=== PATIENT | female | born 1980 | race Caucasian/White ===

== ENCOUNTER → 2021-07-26 15:26 | Outpatient (BNVA) | payer BC, SELFPAY | PROVIDERS: PCP Physician Assistant; Visit Provider Psychiatry & Neurology Neurology | DX: G47.9 Sleep disorder, unspecified (principal); R20.2 Paresthesia of skin; R51.9 Headache, unspecified; M54.2 Cervicalgia; G89.29 Other chronic pain; M79.601 Pain in right arm; M79.602 Pain in left arm | CPT/HCPCS: 99212 ==

== ENCOUNTER 2021-10-16 08:47 | Outpatient (REF) | payer BC, SELFPAY ==
--- NOTE | 2021-10-16 08:53 | EMG_ITS ---
HISTORY OF PRESENT ILLNESS: This is a 41-year-old woman with a 1-year history of left more than right upper extremity numbness and tingling. She has a history of herniated cervical disk and back pain, takes gabapentin. PHYSICAL EXAMINATION: On examination, she is alert, oriented with normal intellectual functions. Cranial nerves II through XII are normal. Muscle tone and strength are normal in all 4 extremities. No Tinel or Phalen sign. IMPRESSION: Carpal tunnel syndrome. Nerve conduction EMG study: Early carpal tunnel syndrome on the left, otherwise normal study. Normal EMG of the left C5-T1 innervated muscles. MD BRANDY Marcial/HAKEEM / [id number]
== END 2021-10-16 08:48 | disposition home or self-care (01) ==
LOC: HO.NEURO 08:47
PROVIDERS: PCP Physician Assistant; Visit Provider Psychiatry & Neurology Neurology
DX: M79.601 Pain in right arm (principal); M79.602 Pain in left arm; R20.2 Paresthesia of skin
CPT/HCPCS: 95885; 95913

== ENCOUNTER 2024-04-14 13:21 | Outpatient (AMB) | payer BC, SELFPAY ==
--- OUTSIDE RECORDS SUMMARY | 2024-04-14 13:24 | XMS_ITS | Data Portability ---
Author Organization [place] - [facility],, MARISA RAMIREZ MD Address [address] [address] Care Team Providers Care Board Stacker Name Role Phone BRANDI PINEDA OTHER Assessment No assessment recorded. Plan of Treatment Reminders Order Date Submit Date Provider Last Modified By Organization Details Last Modified Time Details Appointments None recorded. Lab pap test, thinprep, cervical 2023 024 [email or web address] [facility], [address] [place], [address], 4 07:48:44 fecal occult blood, stool 2023 024 [email or web address] 1 In-Office Order, Internal Use Only DO Not Attach Compendium DO Not Attach Compendium, Do Not Delete/merge, [id number] 4 11:32:16 cytology report, thin prep, smear or scraping, cervical or vaginal 2023 024 RAUL [facility], [address] [place], [address], 4 08:09:26 wet mount, vaginal 2023 024 [email or web address] 1 In-Office Order, Internal Use Only DO Not Attach Compendium DO Not Attach Compendium, Do Not Delete/merge, [id number] 4 11:08:48 wet mount, vaginal 2023 024 [email or web address] 1 In-Office Order, Internal Use Only DO Not Attach Compendium DO Not Attach Compendium, Do Not Delete/merge, [id number] 4 12:43:27 test, urine 2023 024 [email or web address] 1 In-Office Order, Internal Use Only DO Not Attach Compendium DO Not Attach Compendium, Do Not Delete/merge, [id number] 4 11:54:13 wet mount, vaginal 2023 024 [email or web address] 1 In-Office Order, Internal Use Only DO Not Attach Compendium DO Not Attach Compendium, Do Not Delete/merge, [id number] 4 09:38:23 pap, LB + reflex to HR HPV if ASC-U 2023 024 [facility], [address], [place], [address], 4 07:51:42 Referral None recorded. Procedures None recorded. Surgeries None recorded. Imaging MAMMO, screening, digital, bilateral - Breast Aspiration and/or Biopsy if needed 2023 024 [facility], [address], [place] [address], [place], [address], 4 17:22:25 Medication Orders Incassia 0.35 mg tablet 2023 024 [facility] #[id number], [address] [place] [address], [address], 4 11:34:04 clindamyci n 2 % vaginal cream 2023 024 [facility]1972, [address] [place], [address], 4 11:08:48 fluconazol e 150 mg tablet 2023 024 [facility][id number], [address] [place] [address], [address], 4 11:08:48 triamcinol one acetonide 0.1 % topical ointment 2023 024 [facility]1972, [address] [place], [address], 4 11:56:39 terconazol e 0.4 % vaginal cream 2023 024 [facility]1972, [address] [place], [address], 4 11:56:37 Gynazole-1 2 % vaginal cream 2023 024 [facility]1972, [address] [place], [address], 09:38:25 Patient TargetsNo targets recorded. Patient Instructions Encounter Date Encounter Id Patient Instructions Last Modified By Organization Details Last Modified Time 06/18/2023 [id number] learning about healthy weight Not available 06/18/2023 11:32:13 She is here for annual, doing well on the progestin pill, as she is a smoker. She does have occasional intermenstrual spotting. EMB 11/23 showed superficial strips of inactive endometrium. She notes that she has had deep dyspareunia since her first sexual encounter at age 14, always same partner. Note from 11/2022: She is here for emb because she has been bleeding every day for10 weeks, and pelvic sonogram was unremarkable. She takes the progestin pill as she is a smoker. In 09/23 the TSH, prolactin and HCG were normal. _ She is offered laparoscopy to look into the dyspareunia and also to do BTL as she wants permanent sterilization, she declines for now. Declines IUD also. Advised to consider vasectomy so that she can stop the pil, she will speak wiht her about this. She appears to be doing well. Monthly self breast exam was taught, and stressed, and is advised to call if she discovers any new mass in the breast. Not available 06/18/2023 11:33:48 09/16/2023 [id number] abnormal Pap sme ar education Not available 09/16/2023 11:08:46 colposcopy: befo re your procedure Not available 09/16/2023 11:08:45 bacterial vaginosis: care instructions Not available 09/16/2023 11:08:45 vaginal yeast infection: care instructions Not available 09/16/2023 11:08:46 She is here for repeat pap after ASCUS however she also has concerns about missing her OCP for 3 days in a row. She had called here yesterday and we had a few messages with her yesterday, we called in an rx for her OCP at her request though it was too early for her insurance to fill, and she had been advised to take Plan B but she decided not to do so. We spoke with her at 10:55 am, 2:38 pm and again at 3:11 pm. She expresses frustration because we did not answer her in a timely fashion, or resolve her concerns yesterday. It is 11 am and she has not picked up her pills yet today, she will do so after this visit. She has now missed Thursday, Thursday, Thursday and has not yet taken Thursday pill. She had unprotected intercourse on Thursday and on Thursday. Also she complains of a vaginal discharge with pruritus and she would like wet radha done today. Pap is taken await results. We discussed that she should know that if she already became then taking extra pills would not prevent implantation and I recommend she take Plan B but she declines. She will take 2 progestin pills today, tomorrow and the next day then go back to daily pills but use condoms for 4 weeks. She as both yeast and bv on wet radha. She is symptomatic for yeast, rx diflucan. She is not symptomatic for bv and is advised she does not need to treat it but she has some brown discharge and would like to treat it to see if the brown discharge resolves with treatment. Rx cleocin 7 vaginal cream. All questions answered. Not available 09/16/2023 11:20:14 10/08/2023 [id number] vaginal yeast infection: care instructions Not available 10/08/2023 11:54:10 secondary amenorrhea: care instructions Not available 10/08/2023 11:54:10 She is here for a 2 month histroy of vaginal and vulvar pruritus She took diflucan three weeks ago, and again 2 weeks ago, but has not had an improvement in her itching. She did note an improvement with the cleocin 7 vaginal cream on her bv vaginal discharge, now resolved. Note from 09/16/23: She is here for repeat pap after ASCUS however she also has concerns about missing her OCP for 3 days in a row. She had called here yesterday and we had a few messages with her yesterday, we called in an rx for her OCP at her request though it was too early for her insurance to fill, and she had been advised to take Plan B but she decided not to do so. We spoke with her at 10:55 am, 2:38 pm and again at 3:11 pm. She expresses frustration because we did not answer her in a timely fashion, or resolve her concerns yesterday. It is 11 am and she has not picked up her pills yet today, she will do so after this visit. She has now missed Thursday, Thursday, Thursday and has not yet taken Thursday pill. She had unprotected intercourse on Thursday and on Thursday. Also she complains of a vaginal discharge with pruritus and she would like wet radha done today. Pap is taken await results. We discussed that she should know that if she already became then taking extra pills would not prevent implantation and I recommend she take Plan B but she declines. She will take 2 progestin pills today, tomorrow and the next day then go back to daily pills but use condoms for 4 weeks. She as both yeast and bv on wet radha. She is symptomatic for yeast, rx diflucan. She is not symptomatic for bv and is advised she does not need to treat it but she has some brown discharge and would like to treat it to see if the brown discharge resolves with treatment. Rx cleocin 7 vaginal cream. __ She requests test due to amenorrhea, test is negative. She often has amenorrhea due to her OCP she notes. We discussed that she still has yeast and failed diflucan ,will rx terazol 7. Call if symptoms persist. Also rx aristocort for topical relief of itching as she is scratching her skin off. Not available 10/08/2023 12:47:17 10/23/2023 [id number] vaginal yeast infection: care instructions Not available 10/23/2023 09:38:23 She is here because she used the diflucan and it did not help her vaginal pruritus and burning. _ Note from 10/08/23: She is here for a 2 month histroy of vaginal and vulvar pruritus She took diflucan three weeks ago, and again 2 weeks ago, but has not had an improvement in her itching. She did note an improvement with the cleocin 7 vaginal cream on her bv vaginal discharge, now resolved. She has a small amount of yeast on wet radha, will rx with Gynazole-1 at her request, she prefers this over terazol 7, she is aware it may be more expensive. Advised to go back to using the aristocort BID for a month as well. Call if this does not improve her symptoms. Also advised to use RepHresh for 2 to 3 weeks. Not available 10/23/2023 09:40:58 01/19/2024 [id number] abnormal Pap sandra t: care instructions Not available 01/19/2024 11:36:16 She is here for repeat pap after pap with ASCUS without HR HPV. Pap taken, if negative resume annual pap. If ASCUS then colpo. She understands. Not available 01/19/2024 11:37:00 Reason for Referral None Reported. 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 Shift in joelle sugge stive of bacte rial vagin osis. Satis facto ry for evalu ation . Endoc ervic al/tr ansfo rmati on zone prese nt. Proce dures /Adde nda: Human Papil jamila Virus , High- Risk (Any Dx) Statu s: Tanja d Out Inter preta tion: Negat katrina Metho dolog y: Holog ic Aptim a HPV mRNA assay (Nucl eic Acid Ampli ficat ion Test, NAAT) . Clini kemal Histo ry: Date of Last Menst rual Perio d: 06/15 Menst rual Histo ry: not avail able Contr acept katrina Histo ry: not avail able Ancil kady Testi ng: HPV (ASCU S) Case image d by the ThinP rep Imagi ng Syste m with enmanuel perry or felicia gallegos. Clini kemal Histo ry (othe r): Z01.4 19, ROUTI NE SCREE N LPS 2022 NEG Prima ry Patho logis t: Sarina luna M.D. Phone #: [phone], On-Ca Patho logis t: [id number] Not Available [facility] [address], [place], [address], 06/26/2023 16:23:45 06/18/19 24 06/18/2023 fecal occul t blood , stool Occult Blood negati ve Not Available In-Office Order Internal Use Only DO Not Attach Compendium DO Not Attach Compendium, Do Not Delete/merge, [id number] 06/18/2023 10:55:57 09/16/19 24 09/28/2023 IGP, RFX APTIM A HPV ASCU diagnosis: Commen t abnormal EPITH ELIAL CELL ABNOR MALIT Y. ATYPI KEMAL SQUAM OUS CELLS OF UNDET ERMIN ED SIGNI KATHLEEN CE (ASC- US). Not Available [address], [address], 10/07/2023 08:09:26 09/16/19 24 09/28/2023 IGP, RFX APTIM A HPV ASCU specimen adequacy: Iliana pierce Satis facto ry for evalu ation . Endoc ervic al and/o r squam ous metap lasti c cells (endo cervi kemal compo nent) are prese nt. Not Available [address], [address], 10/07/2023 08:09:26 09/16/19 24 09/28/2023 IGP, RFX APTIM A HPV ASCU clinician provided ICD10: Iliana pierce R87.6 10 Not Available [address], [address], 10/07/2023 08:09:26 09/16/19 24 09/28/2023 IGP, RFX APTIM A HPV ASCU performed by: Iliana najera, Cytot echotoniel logis t (ASCP ) Not Available [address], [address], 10/07/2023 08:09:26 09/16/19 24 09/28/2023 IGP, RFX APTIM A HPV ASCU electronical ly signed by: Iliana Hernandez MD, Patho logis t Not Available [address], [address], 10/07/2023 08:09:26 09/16/19 24 09/28/2023 IGP, RFX APTIM A HPV ASCU . . Not Available [address], [address], 10/07/2023 08:09:26 09/16/19 24 09/28/2023 IGP, RFX APTIM A HPV ASCU pathologist provided ICD10: Iliana pierce R87.6 10 Not Available [address], [address], 10/07/2023 08:09:26 09/16/19 24 09/28/2023 IGP, RFX APTIM A HPV ASCU note: Commen t The Pap smear is a scree catarina test desig topher to aid in the detec tion of melani ligna nt and malig nant condi tions of the uteri ne cervi x. It is not a diagn ostic proce dure and shoul d not be used as the sole means of detec ting cervi kemal cance r. Both false -posi tive and false -nega tive repor ts do occur . Not Available [address], [address], 10/07/2023 08:09:26 09/16/19 24 09/28/2023 IGP, RFX APTIM A HPV ASCU test methodology: Iliana t This liqui d based ThinP rep(R ) pap test was scree topher with the use of an image guide zelda enamorado. Not Available [address], [address], 10/07/2023 08:09:26 09/16/19 24 09/28/2023 IGP, RFX APTIM A HPV ASCU . Commen t See below for HPV testi ng resul ts. Not Available [address], [address], 10/07/2023 08:09:26 09/16/19 24 10/07/2023 IGP, RFX APTIM A HPV ASCU HPV aptima Negati ve negati ve This nucle ic acid ampli ficat ion test detec ts fourt een high- risk HPV types (16,1 8,31, 33,35 ,39,4 5,51, 52,56 ,58,5 9,66, 68) witho ut diffe renti ation . Not Available [address], [place], [address], 10/07/2023 08:09:26 09/16/19 24 09/16/2023 wet mount , vagin al Clue Cells positi ve Not Available In-Office Order Internal Use Only DO Not Attach Compendium DO Not Attach Compendium, Do Not Delete/merge, 09/16/2023 11:05:49 09/16/19 24 09/16/2023 wet mount , vagin al Trichomonas negati ve Not Available In-Office Order Internal Use Only DO Not Attach Compendium DO Not Attach Compendium, Do Not Delete/merge, 09/16/2023 11:05:49 09/16/19 24 09/16/2023 wet mount , vagin al Hyphae positi ve Not Available In-Office Order Internal Use Only DO Not Attach Compendium DO Not Attach Compendium, Do Not Delete/merge, 09/16/2023 11:05:49 09/16/19 24 09/16/2023 wet mount , vagin al atrophic epithelium negati ve Not Available In-Office Order Internal Use Only DO Not Attach Compendium DO Not Attach Compendium, Do Not Delete/merge, 09/16/2023 11:05:49 10/08/19 24 10/08/2023 wet mount , vagin al Clue Cells negati ve Not Available In-Office Order Internal Use Only DO Not Attach Compendium DO Not Attach Compendium, Do Not Delete/merge, 10/08/2023 11:52:50 10/08/19 24 10/08/2023 wet mount , vagin al Trichomonas negati ve Not Available In-Office Order Internal Use Only DO Not Attach Compendium DO Not Attach Compendium, Do Not Delete/merge, 10/08/2023 11:52:50 10/08/19 24 10/08/2023 wet mount , vagin al Hyphae positi ve Not Available In-Office Order Internal Use Only DO Not Attach Compendium DO Not Attach Compendium, Do Not Delete/merge, 10/08/2023 11:52:50 10/08/19 24 10/08/2023 wet mount , vagin al atrophic epithelium negati ve Not Available In-Office Order Internal Use Only DO Not Attach Compendium DO Not Attach Compendium, Do Not Delete/merge, 10/08/2023 11:52:50 10/08/19 24 10/08/2023 pregn perez test, urine HCG negati ve Not Available In-Office Order Internal Use Only DO Not Attach Compendium DO Not Attach Compendium, Do Not Delete/merge, 10/08/2023 11:32:47 10/23/19 24 10/23/2023 wet mount , vagin al Clue Cells negati ve Not Available In-Office Order Internal Use Only DO Not Attach Compendium DO Not Attach Compendium, Do Not Delete/merge, 10/23/2023 09:29:26 10/23/19 24 10/23/2023 wet mount , vagin al Trichomonas negati ve Not Available In-Office Order Internal Use Only DO Not Attach Compendium DO Not Attach Compendium, Do Not Delete/merge, 10/23/2023 09:29:26 10/23/19 24 10/23/2023 wet mount , vagin al Hyphae positi ve Not Available In-Office Order Internal Use Only DO Not Attach Compendium DO Not Attach Compendium, Do Not Delete/merge, 10/23/2023 09:29:26 10/23/19 24 10/23/2023 wet mount , vagin al atrophic epithelium negati ve Not Available In-Office Order Internal Use Only DO Not Attach Compendium DO Not Attach Compendium, Do Not Delete/merge, 10/23/2023 09:29:26 01/19/20 24 01/25/2024 IGP, RFX APTIM A HPV ASCU diagnosis: Commen t NEGAT KATRINA FOR INTRA EPITH ELIAL LESIO N OR KAREEM ANNE . THIS SPECI MEN WAS RESCR EENED PART OF OUR QUALI TY CONTR OL PROGR AM. Not Available [facility] ([facility]) [address] [facility], [place], [address], 01/25/2024 12:05:43 01/19/20 24 01/25/2024 IGP, RFX APTIM A HPV ASCU specimen adequacy: Iliana pierce Satis shantelle villafuerte for evalu ation . Endoc ervic al and/o r squam ous metap lasti c cells (endo cervi kemal compo nent) are prese nt. Not Available [facility] ([facility]) [address] [facility], [place], [address], 01/25/2024 12:05:43 01/19/20 24 01/25/2024 IGP, RFX APTIM A HPV ASCU clinician provided ICD10: Iliana pierce R87.6 10 Not Available [facility] ([facility]) [address] [place], [address], 01/25/2024 12:05:43 01/19/20 24 01/25/2024 IGP, RFX APTIM A HPV ASCU performed by: Iliana Goodman, Cytot echno logis t (ASCP ) Not Available [facility] ([facility]) [address] [place], [address], 01/25/2024 12:05:43 01/19/20 24 01/25/2024 IGP, RFX APTIM A HPV ASCU QC reviewed by: lIiana Damian , Cytot echno logis t (ASCP ) Not Available [facility] ([facility]) [address] [place], [address], 01/25/2024 12:05:43 01/19/20 24 01/25/2024 IGP, RFX APTIM A HPV ASCU . . Not Available [facility] ([facility]) [address] [place], [address], 01/25/2024 12:05:43 01/19/20 24 01/25/2024 IGP, RFX APTIM A HPV ASCU note: Iliana pierce The Pap smear is a scree catarina test desmary obando to aid in the detec tion of melani ligna nt and malig nant condi tions of the uteri ne cervi x. It is not a diagn ostic proce dure and shoul d not be used as the sole means of detec ting cervi kemal cance r. Both false -posi tive and false -nega tive repor ts do occur . Not Available [facility] ([facility]) [address] [facility], [place], [address], 01/25/2024 12:05:43 01/19/20 24 01/25/2024 IGP, RFX APTIM A HPV ASCU . Commen t The HPV DNA refle x crite chari were not met with this speci men resul t there fore, no HPV testi ng was perfo rmed. Not Available [facility] ([facility]) [address] [facility], [place], [address], 01/25/2024 12:05:43 07/13/19 24 07/13/2023 MAMMO , scree catarina, digit al, bilat eral No observ ation record ed. [email or web address] [facility] [address], [place], [address], 08/06/2023 07:54:18 07/30/19 24 07/30/2023 MAMMO , diagn ostic , digit al, unila teral No observ ation record ed. [facility] [place] [place] [address] [facility] [address] [address], [place], [address], 07/30/2023 13:09:02 Result Notes None recorded. Problems Name Problem SNOMED Code Status Onset Date Resolution Date Notes Provider Name and Address Organization Details Recorded Time Vulvitis 00845370 Active Marisa Ramirez MD [address] [facility] [address], [place], [address] , [place] - [facility], 4 15:12:56 Anxiety state 408444327 Active Not Available [facility] 3 03:01:04 Cyst of ovary 70662587 Active Not Available [facility] 3 03:01:04 Tobacco dependenc e syndrome 25610791 Active CAN NOT TAKE THE COMBINATIO N CONTROL PILL IF SHE SMOKES Marisa Ramirez MD [address], [place], [address] , [place] - [facility], 6 11:36:22 Past history of ectopic 878458830 Active 2009 She has a past history in 2009 of left sided ectopic treated with methotrexa te in 2009. She had a post procedure HSG which showed bilaterall y patent tubes after treatment. Marisa Ramirez MD [address], [place], [address] , [place] - [facility], 0 14:12:33 Carpal tunnel syndrome 08514352 Active 2021 Evy gibson [place] - [facility], 2 14:46:35 Specializ ed medical examinati on Active Marisa Ramirez MD [address], [place], [address] , [place] - [facility], 5 13:20:56 Problem Notes None recorded. Procedures Surgical History Date Name Laterality Status Provider Name and Address Organization Details Recorded Time 11/21/19 23 Endometrial Biopsy completed Marisa Ramirez MD [address] [facility],[address], [place], [address], [place] - [facility], 11/20/2022 14:26:11 07/12/19 23 Most Recent Mammogram completed Yadi Shelton in [facility], 06/08/2023 11:48:37 05/04/18 96 Other completed Yadi Shelton in [facility], 03/08/2012 13:37:41 05/04/18 84 Tonsillectomy completed Aarti Shelton in [facility], 03/20/2014 10:57:09 Imaging Results Imaging Date Name Status LastModified by Noy wright Details LastModified Time 07/13/2023 MAMMO, screening, digital, bilateral completed [email or web address] [facility] [address] [place], [address], 08/06/2023 07:54:18 07/30/2023 MAMMO, diagnostic, digital, unilateral completed [facility] [place] [place] [address] [place], [id number], 07/30/2023 13:09:02 Procedure Notes None recorded. Medical Equipment None Reported. Allergies No known drug allergies Medications Name Sig Start Date Stop Date Status Note LastModified by Organization Details LastModified Time methocarbam ol 500 mg tablet TAKE 1 TABLET BY MOUTH 3 TIMES A DAY 11/20 completed Not Available Not Available Not Available terconazole 0.4 % vaginal cream INSERT 1 APPLICATO RFUL VAGINALLY EVERY DAY FOR 7 DAYS active Not Available Not Available No t Available neomycin-po lymyxin-hyd rocort 3.5 mg/mL-10,00 0 unit/mL-1 % ear solution PLACE 5 DROPS INTO EAR THREE TIMES DAILY X7-10 DAYS 04/21 completed Not Available Not Available Not Available venlafaxine ER 37.5 mg capsule,ext ended release 24 hr TAKE 1 CAPSULE BY MOUTH DAILY. TAKE 1 TAB DAILY FOR A 1 WEEK, THEN INCREASE TO 2 TABLETS A DAY . 03/31 completed Not Available Not Available Not Available venlafaxine ER 75 mg capsule,ext ended release 24 hr TAKE 1 CAP BY MOUTH DAILY. START AFTER 1 WEEK OF THE 37.5MG DOSE 03/31 completed Not Available Not Available Not Available nicotine 14 mg/[address] daily transdermal patch PLACE 1 PATCH ONTO THE SKIN EVERY 24 HOURS 04/23 completed Not Available Not Available Not Available tizanidine 2 mg tablet TAKE 1 TABLET BY MOUTH EVERY 6 HOURS NEEDED active Not Available Not Available No t Available azithromyci n 250 mg tablet TAKE 2 TABLETS BY MOUTH TODAY, THEN TAKE 1 TABLET DAILY FOR 4 DAYS 04/06 completed Not Available Not Available Not Available ibuprofen 800 mg tablet TAKE 1 TABLET 3 TIMES PER DAY active Not Available Not Available No t Available fluconazole 150 mg tablet TAKE 1 TABLET EVERY WEEK BY ORAL ROUTE FOR 14 DAYS. active Not Available Not Available No t Available meloxicam 15 mg tablet TAKE 1 TABLET BY MOUTH DAILY active Not Available Not Available No t Available prednisone 20 mg tablet TAKE 3 TABLET BY MOUTH DAILY ON DAYS 1-2 THEN TAKE 2 TABS DAILY ON DAYS 3-6 06/12 completed Not Available Not Available Not Available sertraline 100 mg tablet TAKE 1 TABLET BY MOUTH EVERY DAY 04/21 completed Not Available Not Available Not Available doxycycline monohydrate 100 mg tablet TAKE 1 TAB BY MOUTH 2 TIMES DAILY FOR 7 DAYS. 04/06 completed Not Available Not Available Not Available triamcinolo ne acetonide 0.1 % topical cream APPLY A THIN LAYER TWICE A DAY TO AFFECTED AREA 04/19 completed Not Available Not Available Not Available nortriptyli ne 25 mg capsule ONE BY MOUTH EVERY NIGHT AT BEDTIME active Not Available Not Available No t Available Denavir 1 % topical cream APPLY EVERY TWO HOURS DURING WAKING HOURS 06/12 completed Not Available Not Available Not Available lorazepam 0.5 mg tablet Take 2 tablets 3 times a day by oral route. active Not Available Not Available No t Available methocarbam ol 750 mg tablet TAKE 1 TAB BY MOUTH 3 TIMES DAILY NEEDED (SPASMS). 11/20 completed Not Available Not Available Not Available triamcinolo ne acetonide 0.1 % topical ointment APPLY TOPICALLY TWICE A DAY NEEDED active Not Available Not Available No t Available nicotine 21 mg/[address] patch [address] 1 PATCH ONTO THE SKIN EVERY 24 HOURS 04/23 completed Not Available Not Available Not Available clindamycin 2 % vaginal cream INSERT 1 APPLICATO RFUL VAGINALLY EVERY DAY AT BEDTIME FOR 7 DAYS active Not Available Not Available No t Available gabapentin 100 mg capsule TAKE 3 CAPSULES BY MOUTH AT BEDTIME 06/12 completed Not Available Not Available Not Available lorazepam 1 mg tablet TAKE 1 TABLET BY MOUTH BEFORE PROCEDURE 06/12 completed Not Available Not Available Not Available azelastine 137 mcg (0.1 %) nasal spray INHALE 2 SPRAY INTO BOTH NOSTRILS TWICE A DAY DIRECTED 04/21 completed Not Available Not Available Not Available levofloxaci n 500 mg tablet TAKE 1 TAB BY MOUTH DAILY. active Not Available Not Available No t Available ondansetron 4 mg disintegrat ing tablet TAKE 1-2 TABLETS BY MOUTH EVERY 8 HOURS NEEDED FOR NAUSEA FOR UP TO 7 DAYS. 06/12 completed Not Available Not Available Not Available cefdinir 300 mg capsule TAKE ONE CAPSULE BY MOUTH 2 TIMES A DAY active Not Available Not Available No t Available fluticasone propionate 50 mcg/actuati on nasal spray,suspe nsion USE 1 SPRAY IN EACH NOSTRIL ONCE A DAY active Not Available Not Available No t Available sertraline 50 mg tablet TAKE 1 TABLET BY MOUTH EVERY DAY active Not Available Not Available No t Available doxycycline hyclate 100 mg tablet TAKE 1 TABLET BY MOUTH TWICE A DAY 04/21 completed Not Available Not Available Not Available naproxen 500 mg tablet TAKE 1 TABLET BY MOUTH TWICE A DAY active Not Available Not Available No t Available Denta 5000 Plus 1.1 % cream PLEASE SEE ATTACHED FOR DETAILED DIRECTION S active Not Available Not Available No t Available azithromyci n 500 mg tablet TAKE 1 TABLET BY MOUTH EVERY DAY FOR 5 DAYS 04/21 completed Not Available Not Available Not Available cyclobenzap rine 5 mg tablet TAKE 1 TABLET BY MOUTH 3 TIMES A DAY active Not Available Not Available No t Available Tri-Prevife m (28) 0.18 mg(7)/0.215 mg(7)/0.25 mg(7)-35 mcg tablet TAKE 1 TABLET BY MOUTH EVERY DAY 04/06 completed Not Available Not Available Not Available Clindesse 2 % vaginal cream,exten ded release Insert 1 applicato rful every day by vaginal route at bedtime for 1 day. 04/05 completed Not Available Not Available Not Available pregabalin 75 mg capsule TAKE 1 CAPSULE BY MOUTH TWICE A DAY 06/12 completed Not Available Not Available Not Available Gynazole-1 2 % vaginal cream INSERT 1 APPLICATO RFUL VAGINALLY FOR 1 DAY. active Not Available Not Available No t Available Incassia 0.35 mg tablet TAKE 1 TABLET BY MOUTH EVERY DAY active Not Available Not Available No t Available Vitals Date Recorded Body height Body mass index (BMI) Body weight Body temperature Systolic blood pressure Diastolic blood pressure Provider Name and Address Organization Details Last Updated DateTime 4 162.56 cm 18.3 kg/m2 86464.2 3 g 97.4 [degF] 127 mm[Hg] 65 mm[Hg] genia cormier [place] - [facility], 4 10:58:42 Date Recorded Body height Body mass index (BMI) Body weight Body temperature Heart rate Systolic blood pressure Diastolic blood pressure Provider Name and Address Organization Details Last Updated DateTime 4 162.56 cm 18.3 kg/m2 59163.6 7 g 97.4 [degF] 79 /min 133 mm[Hg] 88 mm[Hg] Yadi Shelton in [facility], 4 10:40:26 Date Recorded Body height Body mass index (BMI) Body weight Heart rate Systolic blood pressure Diastolic blood pressure Provider Name and Address Organization Details Last Updated DateTime 4 162.56 cm 18.2 kg/m2 57765.7 9 g 66 /min 133 mm[Hg] 78 mm[Hg] genia Shelton in [facility], 4 11:31:43 Date Recorded Body height Body mass index (BMI) Body weight Body temperature Heart rate Systolic blood pressure Diastolic blood pressure Provider Name and Address Organization Details Last Updated DateTime 4 162.56 cm 18.2 kg/m2 97421.7 9 g 96.8 [degF] 71 /min 131 mm[Hg] 76 mm[Hg] genia Shelton in [facility], 4 09:19:36 Date Recorded Body height Body mass index (BMI) Body weight Heart rate Body temperature Systolic blood pressure Diastolic blood pressure Provider Name and Address Organization Details Last Updated DateTime 4 162.56 cm 18 kg/m2 71349.2 g 67 /min 97.2 [degF] 131 mm[Hg] 79 mm[Hg] Yadi Shelton in [facility], 4 11:04:29 Social History Question Answer Notes LastModified by Organizat ion Details LastModified Time Tobacco Smoking Status Current Every Day Smoker Not Available [facility] 03/06/2020 03:19:40 What Is Your Level Of Alcohol Consumption? None [id number] Information not available 03/06/2020 What Is Your Level Of Caffeine Consumption? Occasional [id number] Information not available 03/06/2020 In The 14 Days Before Symptom Onset, Have You Had Close Contact With A Laboratory-confir med COVID-19 While That Case Was Ill? No Information not available 06/12/2021 In The 14 Days Before Symptom Onset, Have You Had Close Contact With A Person Who Is Under Investigation For COVID-19 While That Person Was Ill? No Information not available 06/12/2021 Have You Been To An Area Known To Be High Risk For COVID-19? No Information not available 06/12/2021 Are You Currently Employed? No Information not available 06/12/2021 What Type Of Diet Are You Following? REGULAR [id number] Information not available 03/06/2020 Which Illicit Or Recreational Drugs Have You Used? No [id number] Information not available 03/06/2020 Do You Reside In Or Have You Traveled To An Area Where Ebola Virus Transmission Is Active? No [id number] Information not available 03/06/2020 Do You Or Have You Ever Used E-cigarettes Or Vape? Never Used Electronic Cigarettes [id number] Information not available 03/06/2020 Education 12 Information no t available 03/08/2012 What Is The Highest Grade Or Level Of School You Have Completed Or The Highest Degree You Have Received? [id number] Information not available 06/12/2022 What Is Your Occupation? Not At This Time. Information not available 04/23/2020 How Many Days In The Past Year Have You Had A Heavy Drinking Consumption (4+ Female, 5+ Male)? 0 Information no t available 03/31/2016 Are There Any Guns Present In Your Home? No Information not available 06/12/2021 High Number Of Sexual Partners No Information not available 03/31/2016 To Which Gender Do You Self-identify? Female Information not available 03/31/2016 Marital Status Informatio n not available 03/08/2012 What Was The Date Of Your Most Recent Tobacco Screening? 06/18/2023 [email or web address] Information not available 06/18/2023 What Is Your Relationship Status? Information not available 06/12/2021 Are You Sexually Active? Yes [id number] Information not available 03/06/2020 At What Age Did You Start Smoking Tobacco? 12 Information not available 06/12/2021 Do You Or Have You Ever Used Smokeless Tobacco? Never Used Smokeless Tobacco [id number] Information not available 03/06/2020 How Much Tobacco Do You Smoke? 0.25 PPD [id number] Information not available 03/06/2020 General Stress Level Medium Information not available 03/08/2012 Do You Feel Stressed (tense, Restless, Nervous, Or Anxious, Or Unable To Sleep At Night)? [id number] Information not available 06/12/2021 Do You Use Any Illicit Or Recreational Drugs? No Information not available 06/12/2021 How Many Years Have You Smoked Tobacco? 30 Information not available 06/12/2021 Have You Recently (within The Last 12 Weeks, Or During A Current ) Traveled To Or Lived In A Zika-affected Area? No Information not available 03/31/2016 Do You Or Have You Ever Used Any Other Forms Of Tobacco Or Nicotine? No Information not available 06/12/2021 Sex: Female Functional Status Question Answer Note LastModified by [employer] ion Details LastModified Time What is your exercise level? Occasional [id number] Information not available 03/06/2020 Mental Status None recorded. Family History Relationship Description Onset Age of this Age Resolved Age Notes LastModified by Organization Details LastModified Time Father Diabetes mellitus previo usly record ed as Diabet es Not available 03/23/2015 11:04:32 Father Problem prostr ate (previ ously record ed as Other) Not available 03/23/2015 11:04:32 Maternal Grandmother Endometrial carcinoma 76 [email or web address] Not available 2022 14:49:47 Medical History Condition Response Anesthesia complications N High Blood Pressure N Candidate for MyRisk panel N Autoimmune Condition Y Thyroid Problems N Kidney or Bladder Problems N GI Problems N Lung Disease N Depression N Defects or Inherited Disease N Anemia N History of Ovarian Cancer N History of Breast Cancer N ISSAC exposure N BRCA testing in past N Osteopenia N Psychiatric Illness N Anxiety Disorder Y Diabetes N Arthritis N Headaches or Migraines Y Infertility N Asthma N History of Cancer N Endometriosis N Hepatitis N Heart Disease N Hypertension N Osteoporosis N Gynecological History Statement/Question Response Flow Light Date of LMP 01/05/2024 Frequency of Cycle (Q days) 28 Menses Monthly N Duration of Flow (days) Age at Menarche 12 Current Control Method BCPs Most Recent Mammogram 07/11/2022 Age at First Child 24 Obstetrics History GPAL:G 3 P 2 0 1 2 Type Value Full Term 2 Living 2 Ectopics 1 Total 3 Immunizations Vaccine Type Date Status Note Provider Nam e and Address Organization Details Recorded Time Influenza, split virus, trivalent, PF 7 completed Not Available [facility] 05/21/2019 02:22:34 Influenza, split virus, trivalent, PF 2 completed Not Available [facility] 05/21/2019 02:22:34 Influenza, split virus, quadrivalent, preservative 0 completed Yadi Meczywor null, [place] - [facility], 04/23/2020 09:46:20 Influenza, split virus, trivalent, PF 3 completed Not Available [facility] 05/21/2019 02:22:34 Influenza, MDCK, quadrivalent, PF 0 completed Yadi Meczywor null, [place] - [facility], 09/16/2023 10:42:32 Influenza, MDCK, quadrivalent, PF 8 completed Yadi Meczywor null, [place] - [facility], 09/16/2023 10:42:32 Influenza, MDCK, quadrivalent, PF 9 completed Yadi Meczywor null, [place] - [facility], 09/16/2023 10:42:32 Tdap 9 completed Yadi Meczywor null, [place] - [facility], 09/16/2023 10:42:32 Influenza, split virus, trivalent, preservative 8 completed Yadi Meczywor null, [place] - [facility], 09/16/2023 10:42:32 Influenza, split virus, trivalent, preservative 1 completed Yadi Meczywor null, [place] - [facility], 09/16/2023 10:42:32 Influenza, split virus, trivalent, preservative 6 completed Yadi gibson [place] - [facility], 09/16/2023 10:42:32 Influenza, split virus, trivalent, PF 7 completed Yadimeaghan gibson MA - [facility], 09/16/2023 10:42:32 Td (adult), 2 Lf tetanus toxoid, preservative free, adsorbed 1 completed Yadi gibson [place] - [facility], 09/16/2023 10:42:33 Influenza, split virus, trivalent, PF 4 completed Not Available [facility] 05/21/2019 02:22:34 Past Encounters Encounter ID Performer Location Encounter Start Date Encounter Closed Date Diagnosis/Indication Diagnosis SNOMED-CT Code Diagnosis ICD10 Code [id number] MD MARISA Boothe MD [address] [facility] [place] [address] 03/08/2012 13:20:35 03/08/2012 16:35:32 [id number] Yadi RAMIREZ MD [address] [facility] [place] [address] 03/15/2013 10:20:11 03/15/2013 15:47:44 Specialized medical examination [id number] Influenza vaccine needed 2068909931 106 Tobacco de pendence syndrome 12210336 [id number] Yadi RAMIREZ MD [address] [facility] [place] [address] 03/20/2014 10:43:43 03/20/2014 11:32:36 Specialized medical examination [id number] Yadi RAMIREZ MD [address] [facility] [place] [address] 03/21/2014 13:32:11 03/21/2014 14:57:53 Influenza vaccine needed 3639142065 106 [id number] Yadi RAMIREZ MD [address] [facility], [address] [place] [id number] 04/04/2014 13:42:09 04/04/2014 15:44:13 Vulvitis [id number] MD MARISA Boothe MD [address] [place] [address], [place] [id number] 03/23/2015 10:40:01 03/23/2015 13:17:54 Specialized medical examination 88855607 Z04.8 Z01.419 Venereal d isease screening 503990342 Z11.3 [id number] MD MARISA Boothe MD [address] [place] [address], [place] [id number] 03/31/2016 10:56:28 03/31/2016 13:08:23 Specialized medical examination 45205711 Z01.419 Venereal d isease screening 221191146 Z11.3 Tobacco de pendence syndrome 81819954 F17.290 [id number] MD MARISA Boothe MD [address] [place] [address], [place] [id number] 04/06/2017 09:55:01 04/06/2017 14:25:27 Specialized medical examination 39321690 Z01.419 Venereal d isease screening 925948845 Z11.3 Influenza vaccine needed 5742413231 106 Z23 Enlarged uterus 73688834 4 N85.2 [id number] MD MARISA Boothe MD [address] [place] [address] [id number] 05/25/2017 10:39:35 05/25/2017 13:07:35 Cyst of ovary 24825711 N83.01 [id number] MD MARISA Boothe MD [address] [place] [address] [place] [id number] 04/19/2018 10:38:21 04/19/2018 12:13:00 Specialized medical examination 94718381 Z01.419 Screening for malignant neoplasm of rectum 019874573 Z12.12 Screening mammography 24 298517 Z12.31 [id number] MD MARISA Boothe MD [address] [place] [address], [place] [id number] 04/21/2019 13:19:45 04/21/2019 15:34:49 Specialized medical examination 08841220 Z01.419 Screening for malignant neoplasm of rectum 889952845 Z12.12 Screening mammography 24 848423 Z12.31 Tobacco de pendence syndrome 06272254 F17.290 [id number] MD MARISA Boothe MD [address] [place], [place] [address] [place] [place] [id number] 05/09/2019 13:37:08 05/09/2019 14:57:05 Irregular intermenstrual bleeding 72860825 N92.1 Acute lowe r urinary tract infection 493823406 R30.0 [id number] MD MARISA Boothe MD [address] [place], [place] [address] [address] 04/23/2020 09:40:21 04/23/2020 10:43:05 Specialized medical examination 28517777 Z01.419 Screening for malignant neoplasm of rectum 278157623 Z12.12 Screening mammography 24 075908 Z12.31 Cyst of right ovary 1223 700130 4633273 N83.201 [id number] MD MARISA Boothe MD [address] [place] [address] [place] [address] 06/21/2020 09:40:26 06/21/2020 10:34:18 Cyst of ovary 29692333 N83.01 [id number] MD MARISA Boothe MD [address] [place] [address] [place] [id number] 06/12/2021 11:03:39 06/14/2021 13:00:39 Specialized medical examination 77869063 Z01.419 Screening for malignant neoplasm of rectum 438898828 Z12.12 Screening mammography 24 562643 Z12.31 [id number] MD MARISA Boothe MD [address] [place], [place] [address] [address] 10/10/2021 14:31:32 10/11/2021 11:34:40 Fatigue 52300498 R53.83 Abnormal u terine bleeding 9916808030 9100 N93.8 [id number] MD MARISA Boothe MD [address] [place] [address],[address] [place] [id number] 06/12/2022 10:48:40 06/12/2022 14:30:34 Specialized medical examination 98437593 Z01.419 Screening for malignant neoplasm of rectum 283940436 Z12.12 Screening mammography 24 393354 Z12.31 Cyst of right ovary 1223 805304 5631028 N83.201 [id number] MD MARISA Boothe MD [address] [place] [address],[address] [place] [id number] 09/23/2022 14:14:50 09/23/2022 15:52:10 Abnormal uterine bleeding 5939385412 9100 N93.8 Cyst of right ovary 1223 926083 [id number] N83.201 [id number] MD MARISA Boothe MD [address] [place] [address],[place] [address] 11/20/2022 13:51:41 11/20/2022 14:48:19 Oligoovulatory dysfunctional uterine bleeding 405613541 N93.8 [id number] MD MARISA Boothe MD [address] [place] [address],[place] [address] 06/18/2023 10:54:23 06/18/2023 13:39:37 Specialized medical examination 41679392 Z01.419 Screening for malignant neoplasm of rectum 463189638 Z12.12 Screening mammography 24 931312 Z12.31 [id number] MD MARISA Boothe MD [address] [place] [address],[place] [address] 09/16/2023 10:36:51 09/16/2023 11:58:58 Atypical squamous cells of undetermined significance on cervical Papanicolaou smear 426049542 R87.610 Candidal vulvovaginitis 99688237 B37.31 Vulvitis 20541753 N76.2 B96.89 [id number] MD MARISA Boothe MD [address] [place] [address],[place] [id number] 10/08/2023 11:27:55 10/08/2023 14:12:21 Amenorrhea 54985617 N91.1 Candidal vulvovaginitis 19548014 B37.31 Vulvitis 96183568 N76.2 B96.89 [id number] MD MARISA Boothe MD [address] [facility] [address] [place] [address] 10/23/2023 09:15:48 10/23/2023 12:05:06 Candidal vulvovaginitis 59918411 B37.31 [id number] MD MARISA Boothe MD [address] [facility] [address] [place] [address] 01/19/2024 11:00:35 01/19/2024 13:50:02 Atypical squamous cells of undetermined significance on cervical Papanicolaou smear 696686854 R87.610 Health Concerns Section Related Observation LastModified by Organization Detai ls LastModified Time None Recorded Concern Status LastModified by Organization Details LastModified Time None Recorded Advance Directives Directive None Recorded Payers Encounter Date Sequence Insurance Name Policy Number Policy Kwong Covered Member ID Kwong Member ID Guarantor Name 06/18/2023 1 [place] [employer] [place] [employer] (PPO) [id number] [id number]/16/2023 1 [place] [employer] [place] [employer] ([place]O) [id number] [id number] 10/08/2023 1 [place] [employer] [place] [employer] ([place]O) [id number] [id number] 10/23/2023 1 [place] [employer] [place] [employer] (PPO) [id number] [id number] 01/19/2024 1 [place] [employer] [place] [employer] (PPO) [id number] 1 Oswaldo Singh [id number] CN Jayla Singh Notes Date Note Type Note Provider Name and Address Organization Details Recorded Time 06/18/2023 text/html She is here for annual, doing well on the progestin pill, as she is a smoker. She does have occasional intermenstrual spotting.EMB 11/23 showed superficial strips of inactive endometrium. She notes that she has had deep dyspareunia since her first sexual encounter at age 14, always same partner. ___ Note from 11/2022: She is here for emb because she has been bleeding every day for10 weeks, and pelvic sonogram was unremarkable. She takes the progestin pill as she is a smoker. In 09/23 the TSH, prolactin and HCG were normal. Marisa Ramirez MD [address] [facility],[address], [place], [address], [facility], 06/18/2023 13:19:04 09/16/2023 text/html She is here for repeat pap after ASCUS however she also has concerns about missing her OCP for 3 days in a row. She had called here yesterday and we had a few messages with her yesterday, we called in an rx for her OCP at her request though it was too early for her insurance to fill, and she had been advised to take Plan B but she decided not to do so. It is 11 am and she has not picked up her pills yet today, she will do so after this visit.She has now missed Thursday, Thursday, Thursday and has not yet taken Thursday pill. She had unprotected intercourse on Thursday and on Thursday. Also she complains of a vaginal discharge with pruritus and she would like wet radha done today. Marisa Ramirez MD [address], [place], [address], [facility], 09/16/2023 11:21:01 10/08/2023 text/html She is here for a 2 month history of vaginal and vulvar pruritus She took diflucan three weeks ago, and again 2 weeks ago, but has not had an improvement in her itching. She did note an improvement with the cleocin 7 vaginal cream on her bv vaginal discharge, now resolved. Note from 09/16/23: She is here for repeat pap after ASCUS however she also has concerns about missing her OCP for 3 days in a row. She had called here yesterday and we had a few messages with her yesterday, we called in an rx for her OCP at her request though it was too early for her insurance to fill, and she had been advised to take Plan B but she decided not to do so. We spoke with her at 10:55 am, 2:38 pm and again at 3:11 pm. She expresses frustration because we did not answer her in a timely fashion, or resolve her concerns yesterday.It is 11 am and she has not picked up her pills yet today, she will do so after this visit.She has now missed Thursday, Thursday, Thursday and has not yet taken Thursday pill.She had unprotected intercourse on Thursday and on Thursday.Also she complains of a vaginal discharge with pruritus and she would like wet radha done today.Pap is taken await results.We discussed that she should know that if she already became then taking extra pills would not prevent implantation and I recommend she take Plan B but she declines. She will take 2 progestin pills today, tomorrow and the next day then go back to daily pills but use condoms for 4 weeks.She as both yeast and bv on wet radha. She is symptomatic for yeast, rx diflucan. She is not symptomatic for bv and is advised she does not need to treat it but she has some brown discharge and would like to treat it to see if the brown discharge resolves with treatment. Rx cleocin 7 vaginal cream. Marisa Ramirez MD [address] [facility],[address], [place], [address], [place] [facility], 10/08/2023 12:47:46 10/23/2023 text/html She is here because she used the diflucan and it did not help her vaginal pruritus and burning. Note from 10/08/23: She is here for a 2 month histroy of vaginal and vulvar pruritusShe took diflucan three weeks ago, and again 2 weeks ago, but has not had an improvement in her itching. She did note an improvement with the cleocin 7 vaginal cream on her bv vaginal discharge, now resolved. Marisa Ramirez MD [address], [place], [address], [facility], 10/23/2023 09:41:20 01/19/2024 text/html She is here for repeat pap after pap with ASCUS without HR HPV. Marisa Ramirez MD [address], [place], [address], [facility] - [facility], 01/19/2024 11:42:58 OBGyn Episode No OBEpisode recorded.
--- OUTSIDE RECORDS SUMMARY | 2024-04-14 13:24 | XMS_ITS | Continuity of Care Document ---
Author Organization [place] - [facility],, MARISA ALEMAN MD Address [address] [place] [address] Care Team Providers Care Radio Station Engineer Name Role Phone BRANDI PINEDA OTHER Assessment No assessment recorded. Plan of Treatment Reminders Order Date Submit Date Provider Last Modified By Organization Details Last Modified Time Details Appointments None recorded . Lab pap, LB + reflex to HR HPV if ASC-U 024 024 tmeczyor [facility], [address] [place], [address], 4 07:51:42 Referral None recorded . Procedures None recorded . Surgeries None recorded . Imaging None recorded . Medication Orders None recorded . Patient TargetsNo targets recorded. Patient Instructions Encounter Date Encounter Id Patient Instructions Last Modified By Organization Details Last Modified Time 01/19/2024 [id number] abnormal Pap test: care instructions Not available 01/19/2024 11:36:16 She is here for repeat pap after pap with ASCUS without HR HPV. Pap taken, if negative resume annual pap. If ASCUS then colpo. She understands. Not available 01/19/2024 11:37:00 Reason for Referral None Reported. Problems Name Problem SNOMED Code Status Onset Date Resolution Date Notes Provider Name and Address Organization Details Recorded Time Vulvitis 04539831 Active Marisa Aleman MD [address], [place], [address] , [place] [facility], 4 15:12:56 Anxiety state 102522275 Active Not Available [facility] 3 03:01:04 Cyst of ovary 31279569 Active Not Available [facility] 3 03:01:04 Tobacco dependenc e syndrome 80189264 Active CAN NOT TAKE THE COMBINATIO N CONTROL PILL IF SHE SMOKES Marisa Aleman MD [address], [place], [address] , [place] [facility], 6 11:36:22 Past history of ectopic 737204344 Active 2009 She has a past history in 2009 of left sided ectopic treated with methotrexa te in 2009. She had a post procedure HSG which showed bilaterall y patent tubes after treatment. Marisa Aleman MD [address], [place], [address] , [place] [facility], 0 14:12:33 Carpal tunnel syndrome 87946332 Active 2021 [place] in [facility], 2 14:46:35 Specializ ed medical examinati on Active Marisa Aleman MD [address], [place], [address] , [place] [facility], 5 13:20:56 Problem Notes None recorded. Procedures Surgical History Date Name Laterality Status Provider Name and Address Organization Details Recorded Time 11/21/19 23 Endometrial Biopsy completed Marisa Aleman MD [address], [place], [address], [place] - [facility], 11/20/2022 14:26:11 07/12/19 23 Most Recent Mammogram completed aYdi Shelton in [facility], 06/08/2023 11:48:37 05/04/18 96 Other completed Yadi Shelton in [facility], 03/08/2012 13:37:41 05/04/18 84 Tonsillectomy completed Aarti Shelton in [facility], 03/20/2014 10:57:09 Imaging Results None recorded. Procedure Notes None recorded. Medical Equipment None [...] Updated DateTime 4 162.56 cm 18 kg/m2 07813.2 g 67 /min 97.2 [degF] 131 mm[Hg] 79 mm[Hg] Yadi [place] [facility], 4 11:04:29 Social History Question Answer Notes LastModified by Organizat ion Details LastModified Time Tobacco Smoking Status Current Every Day Smoker Not Available [facility] 03/06/2020 03:19:40 What Is Your Level Of Alcohol Consumption? None [id number] Information not available 03/06/2020 What Is Your Level Of Caffeine Consumption? Occasional [id number] Information not available 03/06/2020 In The 14 Days Before Symptom Onset, Have You Had Close Contact With A Laboratory-confir [facility] COVID-19 While That Case Was Ill? No [...] Type Of Diet Are You Following? REGULAR [id number] Information not available 03/06/2020 Which Illicit Or Recreational Drugs Have You Used? No [id number] Information not available 03/06/2020 Do You Reside In Or Have You Traveled To An Area Where Ebola Virus Transmission Is Active? No [id number] Information not available 03/06/2020 Do You Or Have You Ever Used E-cigarettes Or Vape? Never Used Electronic Cigarettes [id number] Information not available 03/06/2020 Education 12 Information no t available 03/08/2012 What Is The Highest Grade Or Level Of School You Have Completed Or The Highest Degree You Have Received? [id number] Information not available 06/12/2022 What Is Your [...] available 06/12/2021 Are You Sexually Active? Yes [id number] Information not available 03/06/2020 At What Age Did You Start Smoking Tobacco? 12 Information not available 06/12/2021 Do You Or Have You Ever Used Smokeless Tobacco? Never Used Smokeless Tobacco [id number] Information not available 03/06/2020 How Much Tobacco Do You Smoke? 0.25 PPD [id number] Information not available 03/06/2020 General Stress Level Medium Information not available 03/08/2012 Do You Feel Stressed (tense, Restless, Nervous, Or Anxious, Or Unable To Sleep At Night)? [id number] Information not available 06/12/2021 Do You Use [...] Functional Status Question Answer Note LastModified by [employer] ion Details LastModified Time What is your exercise level? Occasional [id number] Information not available 03/06/2020 Mental Status None [...] for MyRisk panel N Autoimmune Condition Y Kidney or Bladder Problems N Thyroid Problems N Depression N Lung Disease N GI Problems N Defects or Inherited Disease N Anemia [...] virus, trivalent, PF 7 completed Not Available [facility] 05/21/2019 02:22:34 Influenza, split virus, trivalent, PF 2 completed Not Available [facility] 05/21/2019 02:22:34 Influenza, split virus, quadrivalent, preservative 0 completed Yadi Meczywor null, [place] [facility], 04/23/2020 09:46:20 Influenza, split virus, trivalent, PF 3 completed Not Available [facility] 05/21/2019 02:22:34 Influenza, MDCK, quadrivalent, PF 0 [...] split virus, trivalent, preservative 6 completed Yadi Meczywor null, [place] [facility], 09/16/2023 10:42:32 Influenza, split virus, trivalent, PF 7 completed Yadi Meczywor null, [place] [facility], 09/16/2023 10:42:32 Td (adult), 2 Lf tetanus toxoid, preservative free, adsorbed 1 completed Yadi Meczywor null, [place] [facility], 09/16/2023 10:42:33 Influenza, split virus, trivalent, PF 4 completed Not Available [facility] 05/21/2019 02:22:34 Past Encounters Encounter ID Performer Location Encounter Start Date Encounter Closed Date Diagnosis/Indication Diagnosis SNOMED-CT Code Diagnosis ICD10 Code [id number] MD MARISA Boothe MD [address] [place] [address] 01/19/2024 11:00:35 01/19/2024 13:50:02 Atypical squamous cells of undetermined significance on cervical Papanicolaou smear [id number] R87.610 Health Concerns Section Related Observation LastModified by Organization Detai ls LastModified Time None Recorded Concern Status LastModified by Organization Details LastModified Time None Recorded Payers Encounter Date Sequence Insurance Name Policy Number Policy Kwong Covered Member ID Kwong Member ID Guarantor Name 01/19/2024 1 [place] [employer] - [facility] [employer]D (PPO) [id number] 1 Oswaldoana luisa Singh [id number] Jayla Singh Notes Date Note Type Note Provider Name and Address Organization Details Recorded Time 01/19/2024 text/html She is here for repeat pap after pap with ASCUS without HR HPV. Marisa Aleman MD [address], [place], [address], [place] [facility], 01/19/2024 11:42:58 OBGyn Episode No OBEpisode recorded.
--- NOTE | 2024-04-14 13:30 | A.OFFVIS_ITS ---
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 she saw Dr. Browne at [facility] who is planning for cervical fusion surgery .she had carpal tunnel surgery on the left 1 year ago - it helpe dwith numbness but not pain . she declined surgery on her right. 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 She also reports difficulty sleeping. [facility] Medical History Cervical dystonia Chronic headaches Dorsalgia Cervicalgia Panic Acarophobia Surgical History Hx of tonsillectomy Family History Father Diabetes mellitus Maternal Grandmother Cancer Social History Household Members: Spouse and Children Alcohol intake: current Alcohol intake frequency: does not drink Patient Tobacco Use Status: Never used Tobacco Current occupational status: unemployed Physical Exam Vital Signs: Last Vital Signs Pulse 67 04/14/24 13:36 BP 132/82 04/14/24 13:36 Pulse Ox 98 04/14/24 13:36 Oxygen Delivery Method Room Air 04/14/24 13:36 BMI result Body Mass Index 17.9 Const General: cooperative and anxious Nutritional Appearance: thin Orientation/consciousness: patient oriented x3 Eyes Pupils: Equal, round and reactive pupils present Neuro Other: Cervical dystonia - tenderness in the demi levators and scalene General: patient oriented x3, gait normal, tone normal, moves all extremities, no focal motor deficits, CN's II-XI intact bilaterally and other (tenderness in demi medial epicondyle) Cranial nerves: Yes Equal, round and reactive pupils present and Yes Normal facial strength present Cognition (Neuro): normal cognition Motor exam (neuro): 5/5 motor strength present throughout Psych Affect: Anxious affect present Assessment & Plan Assessment & Plan (1) Cervicalgia: Code(s): M54.2 - Cervicalgia Category: Medical (2) Cervical dystonia: Code(s): G24.3 - Spasmodic torticollis Category: Medical Plan she will benefit from treatment with botox for her cervical dystonia and it can help he head tremors, neck pain and headaches. I will get a prior auth from insurance and schedule her. Coding Level of Care Code Est Pt Level 4 (45822) Diagnoses Cervicalgia M54.2 Cervical dystonia G24.3
[2024-04-14 13:36] VITALS: BP 132/82; PULSE 67; O2SAT 98; BMI 17.9
== END 2024-04-14 13:57 | disposition home or self-care (01) ==
PROVIDERS: PCP Physician Assistant; Visit Provider Psychiatry & Neurology Neurology
DX: M54.2 Cervicalgia (principal); G24.3 Spasmodic torticollis
CPT/HCPCS: 99214

== ENCOUNTER 2024-07-26 12:48 | Outpatient (AMB) | payer BC, SELFPAY ==
[2024-07-26 12:48] VITALS: PULSE 72; O2SAT 99; BMI 17.7
--- NOTE | 2024-07-26 12:48 | A.OFFVIS_ITS ---
Vital Signs 07/26/24 12:48 Height 5 ft 4 in Weight 103 lb BMI 17.7 Pulse 72 Pulse Source Pulse Oximeter Pulse Oximetry (%) 99 Oxygen Delivery Method Room Air Intake Visit Reasons: 1st botox/3 mo follow up Intake Note: Patient presents for botox injection Practice supplied Allergies amoxicillin Allergy (Verified 07/26/24 12:51) Vomiting Medication List - Last Reconciled 07/26/24 by Vilma Saeed MD gabapentin 300 mg (3 x 100 mg) PO BEDTIME methocarbamol 500 mg PO .three times a day norethindrone (contraceptive) 0.35 mg PO DAILY sertraline 50 mg PO DAILY HPI Comments Details: 44y/o female comes for treatment of her cervical dystonia ? Side effects including spread of toxin effect, dysphagia, breathing difficulties , bronchitis etc was discussed in detail and the patient agreed to the procedure.An informed consent was obtained ??? Botulinum toxin type A 200units X 1 -was diluted with 4 cc of normal saline at a concentration of 25 units in 0.5cc saline. Lot number [id number] expiration 08/2026 ??? Muscles injected ??? madhu Splenius - 25 units each ??? Madhu levator 50 units each ??? BilTrapezius 25 units each ??? Total used 200 units [facility] Medical History Cervical dystonia Chronic headaches Dorsalgia Cervicalgia Panic Acarophobia Surgical History Hx of tonsillectomy Family History Father Diabetes mellitus Maternal Grandmother Cancer Social History Household Members: Spouse and Children Alcohol intake: current Alcohol intake frequency: does not drink Patient Tobacco Use Status: Never used Tobacco Current occupational status: unemployed Physical Exam Vital Signs: Last Vital Signs Pulse 72 07/26/24 12:48 Pulse Ox 99 07/26/24 12:48 Oxygen Delivery Method Room Air 07/26/24 12:48 BMI result Body Mass Index 17.7 Const General: cooperative and anxious Nutritional Appearance: thin Orientation/consciousness: patient oriented x3 Eyes Pupils: Equal, round and reactive pupils present Neuro Other: Cervical dystonia - tenderness in the madhu levators and scalene General: patient oriented x3, gait normal, tone normal, moves all extremities, no focal motor deficits, CN's II-XI intact bilaterally and other (tenderness in madhu medial epicondyle) Cranial nerves: Yes Equal, round and reactive pupils present and Yes Normal facial strength present Cognition (Neuro): normal cognition Motor exam (neuro): 5/5 motor strength present throughout Psych Affect: Anxious affect present Office Procedures Botulinum toxin Injection 44250 - Dystonia Procedure code (CPT) selection complete Office Meds onabotulinumtoxinA 200 unit solution for injection Performing Provider: Vilma Saeed MD Performing Location: [facility] Administered by: Vilma Saeed MD on 07/26/24 13:21 Dose Route Admin Location Dispensed Lot Number Expiration Date [facility] Courtesy Bus Driver 200 unit IM 200 units [id number] ALLERGAN/BOTOX Comments: see hpi Assessment & Plan Assessment & Plan (1) Cervicalgia: Code(s): M54.2 - Cervicalgia Category: Medical (2) Cervical dystonia: Code(s): G24.3 - Spasmodic torticollis Category: Medical Plan Patient tolerated the procedure well she will call with any side effects Orders: Orders AMB Botulinum toxin Injection Today G24.3 - Spasmodic torticollis Medications: New onabotulinumtoxinA 200 units IM ONCE 1 ea 0RF cervical dystonia G24.3 - Spasmodic torticollis Coding Level of Care Code Est Pt Level 1 (74415) Diagnoses Cervicalgia M54.2 Cervical dystonia G24.3 CPT Codes Botox Injection - Botox 4: 90766 - Dystonia ([id number])
== END 2024-07-26 13:13 | disposition home or self-care (01) ==
LOC: HO.HSMS 12:49
PROVIDERS: PCP Physician Assistant; Visit Provider Psychiatry & Neurology Neurology
DX: G24.3 Spasmodic torticollis (principal)
CPT/HCPCS: 64616

== ENCOUNTER → 2024-07-26 12:48 | Outpatient (BNVA) | payer BC, SELFPAY | PROVIDERS: PCP Physician Assistant; Visit Provider Psychiatry & Neurology Neurology | DX: G24.3 Spasmodic torticollis (principal); M54.2 Cervicalgia | CPT/HCPCS: 64616; 99211; J0585 ==

== ENCOUNTER 2024-11-08 09:51 | Outpatient (AMB) | payer BC, SELFPAY ==
--- NOTE | 2024-11-08 09:57 | A.OFFVIS_ITS ---
Vital Signs 11/08/24 09:57 Height 5 ft 4 in Intake Visit Reasons: Botox Intake Note: Patient presents for botox injection. pharmacy supplied Allergies amoxicillin Allergy (Verified 11/08/24 10:01) Vomiting Medication List - Last Reconciled 11/10/24 by Vilma Saeed MD celecoxib 200 mg PO DAILY PRN gabapentin 300 mg (3 x 100 mg) PO BEDTIME methocarbamol 500 mg PO .three times a day norethindrone (contraceptive) 0.35 mg PO DAILY sertraline 50 mg PO DAILY HPI Comments Details: 44y/o female comes for treatment of her cervical dystonia ? Side effects including spread of toxin effect, dysphagia, breathing difficulties , bronchitis etc was discussed in detail and the patient agreed to the procedure.An informed consent was obtained ??? Botulinum toxin type A 200units X 1 -was diluted with 4 cc of normal saline at a concentration of 25 units in 0.5cc saline. Lot number [id number] expiration 02/2027 ??? Muscles injected ? Madhu levator 50 units each ??? BilTrapezius 25 units each ??? Total used 150 units Discarded 50 units PFSH Medical History Cervical dystonia Chronic headaches Dorsalgia Cervicalgia Panic Acarophobia Surgical History Hx of tonsillectomy Family History Father Diabetes mellitus Maternal Grandmother Cancer Social History Household Members: Spouse and Children Alcohol intake: current Alcohol intake frequency: does not drink Patient Tobacco Use Status: Never used Tobacco Current occupational status: unemployed Physical Exam Const General: cooperative and anxious Nutritional Appearance: thin Orientation/consciousness: patient oriented x3 Eyes Pupils: Equal, round and reactive pupils present Neuro Other: Cervical dystonia - tenderness in the madhu levators and scalene General: patient oriented x3, gait normal, tone normal, moves all extremities, no focal motor deficits, CN's II-XI intact bilaterally and other (tenderness in madhu medial epicondyle) Cranial nerves: Yes Equal, round and reactive pupils present and Yes Normal facial strength present Cognition (Neuro): normal cognition Motor exam (neuro): 5/5 motor strength present throughout Psych Affect: Anxious affect present Office Procedures Botulinum toxin Injection 54893 - Dystonia Procedure code (CPT) selection complete Office Meds onabotulinumtoxinA 200 unit solution for injection Performing Provider: Vilma Saeed MD Performing [place] [facility] Administered by: Vilma Saeed MD on 11/10/24 10:57 Dose Route Admin Location Dispensed Lot Number Expiration Date [facility] In House Counsel 150 unit IM 200 units [id number] ALLERGAN /BOTOX Total Dispensed Waste 200 units 25 % Comments: see hpi Assessment & Plan Assessment & Plan (1) Cervicalgia: Code(s): M54.2 - Cervicalgia Category: Medical (2) Cervical dystonia: Code(s): G24.3 - Spasmodic torticollis Category: Medical Plan Patient tolerated the procedure well she will call with any side effects Orders: Orders AMB Botulinum toxin Injection 11/08/24 G24.3 - Spasmodic torticollis Coding Level of Care Code Est Pt Level 1 (51552) Diagnoses Cervicalgia M54.2 Cervical dystonia G24.3 CPT Codes Botox Injection - Botox 4: 29992 - Dystonia ([id number])
--- OUTSIDE RECORDS SUMMARY | 2024-11-08 10:30 | XMS_ITS | Data Portability ---
Author Organization [place] - [facility],, MARISA RAMIREZ MD Address [address] [address] Care Team Providers Care Angle Dozer Operator Name Role Phone BRANDI PINEDA OTHER Assessment No assessment recorded. Plan of Treatment Reminders Order Date Submit Date Provider Last Modified By Organization Details Last Modified Time Details Appointments None recorded. Lab cytology report, thin prep, smear or scraping, cervical or vaginal 2024 025 RAUL [facility] (Centralized Electronic Ordering - All Locations), Patient Can Go To The Location Of Their Choice, [id number] 14:16:10 hemoglobin , gastrointe stinal, stool 2024 025 [email or web address] 1 In-Office Order, Internal Use Only DO Not Attach Compendium DO Not Attach Compendium, Do Not Delete/merge, [id number] 5 11:33:54 pap, LB + reflex to HR HPV if ASC-U 2023 024 [email or web address] [facility] (Centralized Electronic Ordering - All Locations), Patient Can Go To The Location Of Their Choice, [id number] 07:51:42 wet mount, vaginal 2023 024 [email or web address] 1 In-Office Order, Internal Use Only DO Not Attach Compendium DO Not Attach Compendium, Do Not Delete/merge, [id number] 09:38:23 wet mount, vaginal 2023 024 [email or web address] 1 In-Office Order, Internal Use Only DO Not Attach Compendium DO Not Attach Compendium, Do Not Delete/merge, [id number] 4 12:43:27 test, urine 2023 024 [email or web address] 1 In-Office Order, Internal Use Only DO Not Attach Compendium DO Not Attach Compendium, Do Not Delete/merge, [id number] 11:54:13 cytology report, thin prep, smear or scraping, cervical or vaginal 2023 024 CISSNA PARK [facility] (Centralized Electronic Ordering - All Locations), Patient Can Go To The Location Of Their Choice, [id number] 08:09:26 wet mount, vaginal 2023 024 [email or web address] 1 In-Office Order, Internal Use Only DO Not Attach Compendium DO Not Attach Compendium, Do Not Delete/merge, [id number] 4 11:08:48 Referral None recorded. Procedures None recorded. Surgeries None recorded. Imaging MAMMO, screening, digital, bilateral - Breast Aspiration and/or Biopsy if needed 2024 025 [facility], [address], [address], [place], [address], 5 09:19:13 Medication Orders Incassia 0.35 mg tablet 2024 025 [facility]armacy #1972, [address] [place] [address], [address], 5 11:20:17 Gynazole-1 2 % vaginal cream 2023 025 [facility] #1972, [address] [place] [address], [address], 5 11:09:01 triamcinol one acetonide 0.1 % topical ointment 2023 025 [facility] #1972, [address] [place] [address], [place], [address], 5 11:09:29 terconazol e 0.4 % vaginal cream 2023 025 [facility]acy #1972, [address] [place], [address], 11:09:19 clindamyci n 2 % vaginal cream 2023 025 [facility] #1972, [address] [place], [address], 11:08:53 fluconazol e 150 mg tablet 2023 025 [facility] #[id number], [address] [place], [address], 11:08:57 Patient TargetsNo targets recorded. Patient Instructions Encounter Date Encounter Id Patient Instructions Last Modified By Organization Details Last Modified Time 09/16/2023 [id number] abnormal Pap sme ar education Not available [...] questions answered. Not available 09/16/2023 11:20:14 10/08/2023 [id number] vaginal yeast infection: care instructions Not available [...] Thursday, Thursday and has not yet taken Wednesday pill. She had unprotected intercourse on Thursday [...] skin off. Not available 10/08/2023 12:47:17 10/23/2023 [id number] vaginal yeast infection: care instructions Not available [...] use RepHresh for 2 to 3 weeks. charles Not available 10/23/2023 09:40:58 01/19/2024 [id number] abnormal Pap sandra t: care instructions charles Not available 01/19/2024 11:36:16 She is here for repeat pap after pap with ASCUS without HR HPV. Pap taken, if negative resume annual pap. If ASCUS then colpo. She understands. charles Not available 01/19/2024 11:37:00 08/01/2024 [id number] learning about healthy weight charles Not available 08/01/2024 11:20:15 She is here for annual, smoker, on progetin pill. She needs neck surgery To replace a disc is in pain. ____ Note from 2023: She is here for annual, doing well on the progestin pill, as she is a smoker. She does have occasional intermenstrual spotting. EMB 11/23 showed superficial strips of inactive endometrium. She notes that she has had deep dyspareunia since her first sexual encounter at age 14, always same partner. She appears to be doing well. Monthly self breast exam was taught, and stressed, and is advised to call if she discovers any new mass in the breast. charles Not available 08/01/2024 11:34:11 Reason for Referral None Reported. Results Created Date Observation Date Name Description Value Unit Range Abnormal Flag Note LastModifiedBy Organization Detail LastModifiedTime 09/16/19 24 09/28/2023 IGP, RFX APTIM A HPV ASCU diagnosis: Commen t abnormal EPITH ELIAL CELL ABNOR MALIT Y. ATYPI KEMAL SQUAM OUS CELLS OF UNDET ERMIN ED HEATHERI KATHLEEN CE (ASC- [place]). Not Available [address], [place], [address], 10/07/2023 08:09:26 09/16/19 24 09/28/2023 IGP, RFX APTIM A HPV ASCU specimen adequacy: Commen t Satis facto ry for evalu ation . Endoc ervic al and/o r squam ous metap lasti c cells (endo cervi kemal compo nent) are prese nt. Not Available [address], [address], 10/07/2023 08:09:26 09/16/19 24 09/28/2023 IGP, RFX APTIM A HPV ASCU clinician provided ICD10: Iliana pierce R87.6 10 Not Available [address], [address], 10/07/2023 08:09:26 09/16/19 24 09/28/2023 IGP, RFX APTIM A HPV ASCU performed by: Iliana najera, Cytostan pierce (ASCP ) Not Available [address], [address], 10/07/2023 08:09:26 09/16/19 24 09/28/2023 IGP, RFX APTIM A HPV ASCU electronical ly signed by: Iliana Hernandez MD, Patho logis t Not Available [address], [address], 10/07/2023 08:09:26 09/16/19 24 09/28/2023 IGP, RFX APTIM A HPV ASCU . . Not Available [address], [address], 10/07/2023 08:09:26 09/16/19 24 09/28/2023 IGP, RFX APTIM A HPV ASCU pathologist provided ICD10: Iliana pierce R87.6 10 Not Available [address], [address], 10/07/2023 08:09:26 09/16/19 24 09/28/2023 IGP, RFX [...] repor ts do occur . Not Available [address], [address], 10/07/2023 08:09:26 09/16/19 24 09/28/2023 IGP, RFX APTIM A HPV ASCU test methodology: Commen t This liqui d based ThinP rep(R ) pap test was virginia obando with the use of an image guide zelda enamorado. Not Available [address], [address], 10/07/2023 08:09:26 09/16/19 24 09/28/2023 IGP, RFX APTIM A HPV ASCU . Commen t See below for HPV testi ng resul ts. Not Available [address], [address], 10/07/2023 08:09:26 09/16/19 24 10/07/2023 IGP, RFX APTIM A HPV ASCU HPV aptima Negati ve negati ve This nucle ic acid ampli ficat ion test detec ts fourt een high- risk HPV types (16,1 8,31, 33,35 ,39,4 5,51, 52,56 ,58,5 9,66, 68) witho ut diffe renti ation . Not Available [address], [address], 10/07/2023 08:09:26 09/16/1909/16/2023 wet mount , gaby hernandez Clue Cells positi ve Not Available In-Office Order Internal Use Only DO Not Attach Compendium DO Not Attach Compendium, Do Not Delete/merge, [id number] 09/16/2023 11:05:49 09/16/19 24 09/16/2023 wet mount , vagin al Trichomonas negati ve Not Available In-Office Order Internal Use Only DO Not Attach Compendium DO Not Attach Compendium, Do Not Delete/merge, [facility] 09/16/2023 11:05:49 09/16/19 24 09/16/2023 wet mount , vagin al Hyphae positi ve Not Available In-Office Order Internal Use Only DO Not Attach Compendium DO Not Attach Compendium, Do Not Delete/merge, [facility] 09/16/2023 11:05:49 09/16/19 24 09/16/2023 wet mount , vagin al atrophic epithelium negati ve Not Available In-Office Order Internal Use Only DO Not Attach Compendium DO Not Attach Compendium, Do Not Delete/merge, [id number] 09/16/2023 11:05:49 10/08/19 24 10/08/2023 wet mount , vagin al Clue Cells negati ve Not Available In-Office Order Internal Use Only DO Not Attach Compendium DO Not Attach Compendium, Do Not Delete/merge, [facility] 10/08/2023 11:52:50 10/08/19 24 10/08/2023 wet mount , vagin al Trichomonas negati ve Not Available In-Office Order Internal Use Only DO Not Attach Compendium DO Not Attach Compendium, Do Not Delete/merge, [facility] 10/08/2023 11:52:50 10/08/19 24 10/08/2023 wet mount , vagin al Hyphae positi ve Not Available In-Office Order Internal Use Only DO Not Attach Compendium DO Not Attach Compendium, Do Not Delete/merge, [facility] 10/08/2023 11:52:50 10/08/19 24 10/08/2023 wet mount , vagin al atrophic epithelium negati ve Not Available In-Office Order Internal Use Only DO Not Attach Compendium DO Not Attach Compendium, Do Not Delete/merge, [facility] 10/08/2023 11:52:50 10/08/19 24 10/08/2023 pregn perez test, urine HCG negati ve Not Available In-Office Order Internal Use Only DO Not Attach Compendium DO Not Attach Compendium, Do Not Delete/merge, [facility] 10/08/2023 11:32:47 10/23/19 24 10/23/2023 wet mount , vagin al Clue Cells negati ve Not Available In-Office Order Internal Use Only DO Not Attach Compendium DO Not Attach Compendium, Do Not Delete/merge, [id number] 10/23/2023 09:29:26 10/23/19 24 10/23/2023 wet mount , vagin al Trichomonas negati ve Not Available In-Office Order Internal Use Only DO Not Attach Compendium DO Not Attach Compendium, Do Not Delete/merge, [id number] 10/23/2023 09:29:26 10/23/19 24 10/23/2023 wet mount , vagin al Hyphae positi ve Not Available In-Office Order Internal Use Only DO Not Attach Compendium DO Not Attach Compendium, Do Not Delete/merge, [id number] 10/23/2023 09:29:26 10/23/19 24 10/23/2023 wet mount , vagin al atrophic epithelium negati ve Not Available In-Office Order Internal Use Only DO Not Attach Compendium DO Not Attach Compendium, Do Not Delete/merge, [id number] 10/23/2023 09:29:26 01/19/20 24 01/25/2024 IGP, RFX APTIM A HPV ASCU diagnosis: Commen t NEGAT KATRINA FOR INTRA EPITH ELIAL LESIO N OR KAREEM ANNE . THIS SPECI MEN WAS RESCR EENED PART OF OUR QUALI TY CONTR OL PROGR AM. Not Available [facility] ([facility]) [address] [facility], [place], [address], 01/25/2024 12:05:43 01/19/20 24 01/25/2024 IGP, RFX APTIM A HPV ASCU specimen adequacy: Commen t Satis facto ry for evalu ation . Endoc ervic al and/o r squam ous metap lasti c cells (endo cervi kemal compo nent) are prese nt. Not Available [facility] ([facility]) [address] [facility], [place], [address], 01/25/2024 12:05:43 01/19/20 24 01/25/2024 IGP, RFX APTIM A HPV ASCU clinician provided ICD10: Iliana pierce R87.6 10 Not Available [facility] ([facility]) [address] [place], [address], 01/25/2024 12:05:43 01/19/20 24 01/25/2024 IGP, RFX APTIM A HPV ASCU performed by: Iliana Goodman, Cytot echno logis t (ASCP ) Not Available [facility] ([facility]) [address] [place], [address], 01/25/2024 12:05:43 01/19/20 24 01/25/2024 IGP, RFX APTIM A HPV ASCU QC reviewed by: Iliana Damian , Cytot echno logis t (ASCP ) Not Available [facility] ([facility]) [address] [place], [address], 01/25/2024 12:05:43 01/19/20 24 01/25/2024 IGP, RFX APTIM A HPV ASCU . . Not Available [facility] ([facility]) [address] [place], [address], 01/25/2024 12:05:43 01/19/20 24 01/25/2024 IGP, RFX [...] ts do occur . Not Available [facility] ([facility]) [address] [place], [address], 01/25/2024 12:05:43 01/19/20 24 01/25/2024 IGP, RFX APTIM A HPV ASCU . Commen t The HPV DNA refle x crite chari were not met with this speci men resul t there fore, no HPV testi ng was perfo rmed. Not Available [facility] ([facility]) [address] [place], [address], 01/25/2024 12:05:43 08/02/19 25 08/04/2024 IGP, RFX APTIM A HPV ASCU diagnosis: Commen t NEGAT KATRINA FOR INTRA EPITH ELIAL LESIO N OR MALIG OMID . THIS SPECI MEN WAS RESCR EENED PART OF OUR QUALI TY CONTR OL PROGR AM. Not Available [facility] ([facility]) [address] [place], [address], 08/04/2024 14:16:10 08/02/19 25 08/04/2024 IGP, RFX APTIM A HPV ASCU specimen adequacy: Commen t Satis facto ry for evalu ation . Endoc ervic al and/o r squam ous metap lasti c cells (endo cervi kemal compo nent) are prese nt. Not Available [facility] ([facility]) [address] [place], [address], 08/04/2024 14:16:10 08/02/19 25 08/04/2024 IGP, RFX APTIM A HPV ASCU clinician provided ICD10: Iliana t Z01.4 19 Not Available [facility] ([facility]) [address] [place], [address], 08/04/2024 14:16:10 08/02/19 25 08/04/2024 IGP, RFX APTIM A HPV ASCU performed by: Iliana t Zara Goodman, Cytostan pierce (ASCP ) Not Available [facility] ([facility]) [address] [place], [address], 08/04/2024 14:16:10 08/02/19 25 08/04/2024 IGP, RFX APTIM A HPV ASCU QC reviewed by: Emely Galvan (ASCP ) Not Available [facility] ([facility]) [address] [place], [address], 08/04/2024 14:16:10 08/02/19 25 08/04/2024 IGP, RFX APTIM A HPV ASCU . . Not Available [facility] ([facility]) [address] [place], [address], 08/04/2024 14:16:10 08/02/19 25 08/04/2024 IGP, RFX APTIM A HPV ASCU note: Iliana t The Pap smear is a scree [...] ts do occur . Not Available [facility] ([facility]) [address] [place], [address], 08/04/2024 14:16:10 08/02/19 25 08/04/2024 IGP, RFX APTIM A HPV ASCU test methodology: Iliana pierce This liqui d based ThinP rep(R ) pap test was scree topher with the use of an image guide d syste m. Not Available [facility] ([facility]) [address] [place], [address], 08/04/2024 14:16:10 08/02/19 25 08/04/2024 IGP, RFX APTIM A HPV ASCU . Iliana t The HPV DNA refle x crite chari were not met with this speci men resul t there fore, no HPV testi ng was perfo rmed. Not Available [facility] ([facility]) [address] [facility], [place], [address], 08/04/2024 14:16:10 08/02/19 25 08/01/2024 hemog lobin , gastr ointe alex l, stool Occult Blood negati ve Not Available In-Office Order Internal Use Only DO Not Attach Compendium DO Not Attach Compendium, Do Not Delete/merge, [id number] 08/01/2024 11:12:07 08/06/19 25 08/05/2024 MAMMO , scree catarina, digit al, bilat eral No observ ation record ed. [facility] [address], [place], [address], 08/05/2024 09:38:50 Result Notes None recorded. Problems Name Problem SNOMED Code Status Onset Date Resolution Date Notes Provider Name and Address Organization Details Recorded Time Vulvitis 05206579 Active MD Gigi Boothe,[address], [place], [address] , [place] [facility], 4 15:12:56 Anxiety state 736597662 Active Not Available [facility] 3 03:01:04 Cyst of ovary 20724317 Active Not Available [facility] 3 03:01:04 Tobacco dependenc e syndrome 67764700 Active CAN NOT TAKE THE COMBINATIO N CONTROL PILL IF SHE SMOKES MD Gigi Boothe,[address], [place], [address] , [place] - [facility], 6 11:36:22 Past history of ectopic 134499267 Active 2009 She has a past history in 2009 of left sided ectopic treated with methotrexa te in 2009. She had a post procedure HSG which showed bilaterall y patent tubes after treatment. MD Gigi Boothe,[address], [place], [address] , [place] [facility], 0 14:12:33 Carpal tunnel syndrome 68759109 Active 2021 Evy gibson [place] - [facility], 2 14:46:35 Specializ ed medical examinati on Active Marisa Ramirez MD [address], [place], [address] , [place] [facility], 5 13:20:56 Problem Notes None recorded. Procedures Surgical History Date Name Laterality Status Provider Name and Address Organization Details Recorded Time 07/30/19 24 Most Recent Mammogram completed Yadi Shelton in [facility], 07/25/2024 08:10:55 11/21/19 23 Endometrial Biopsy completed Marisa Ramirez MD [address] [facility],[address], [place], [address], [place] - [facility], 11/20/2022 14:26:11 05/04/18 96 Other completed Yadi Shelton in [facility], 03/08/2012 13:37:41 05/04/18 84 Tonsillectomy completed Aarti Shelton in [facility], 03/20/2014 10:57:09 Imaging Results None recorded. [...] RFUL VAGINALLY EVERY DAY FOR 7 DAYS 08/01 completed Not Available Not Available Not Available neomycin-po lymyxin-hyd rocort 3.5 mg/mL-10,00 0 unit/mL-1 % ear solution PLACE 5 DROPS INTO EAR THREE TIMES DAILY X7-10 DAYS 04/21 completed Not Available Not Available Not Available venlafaxine ER 37.5 mg capsule,ext ended release 24 hr TAKE 1 CAPSULE BY MOUTH DAILY. TAKE 1 TAB DAILY FOR A 1 WEEK, THEN INCREASE TO 2 TABLETS A DAY . 11/28 /2016 completed Not Available Not Available Not Available [...] WEEK BY ORAL ROUTE FOR 14 DAYS. 08/01 completed Not Available Not Available Not Available meloxicam 15 mg tablet TAKE 1 TABLET BY MOUTH EVERY DAY NEEDED FOR PAIN active Not Available Not Available No t [...] ointment APPLY TOPICALLY TWICE A DAY NEEDED 08/01 completed Not Available Not Available Not Available nicotine 21 mg/[address]mal patch PLACE 1 PATCH ONTO THE SKIN EVERY 24 HOURS 04/23 completed Not Available Not Available Not Available clindamycin 2 % vaginal cream INSERT 1 APPLICATO RFUL VAGINALLY EVERY DAY AT BEDTIME FOR 7 DAYS 08/01 completed Not Available Not Available Not Available gabapentin 100 mg capsule TAKE 3 [...] mg tablet TAKE 1 TABLET BY MOUTH 1 TIME EACH DAY. active Not Available Not Available No [...] 1 APPLICATO RFUL VAGINALLY FOR 1 DAY. 08/01 completed Not Available Not Available Not Available Incassia 0.35 mg tablet TAKE 1 TABLET BY MOUTH EVERY DAY active Not Available Not Available No t Available Clenpiq 10 mg-3.5 gram-12 gram/175 mL oral solution TAKE 175 ML BY MOUTH 2 TIMES A DAY. active Not Available Not Available No t Available Vitals Date Recorded Body height Body temperature Heart rate Body mass index (BMI) Body weight Systolic And Diastolic Provider Name and Address Organization Details Last Updated DateTime 5 162.56 cm 97.2 [degF] 67 /min 18.1 kg/m2 27522.9 2 g 147/83 mm[Hg] Yadi Shelton in [facility], 5 11:06:57 Date Recorded Body height Body mass index (BMI) Body weight Body temperature Heart rate Systolic And Diastolic Provider Name and Address Organization Details Last Updated DateTime 4 162.56 cm 18.3 kg/m2 51643.6 7 g 97.4 [degF] 79 /min 133/88 mm[Hg] Yadi Shelton in [facility], 4 10:40:26 Date Recorded Body height Body mass index (BMI) Body weight Heart rate Systolic And Diastolic Provider Name and Address Organization Details Last Updated DateTime 10/08/2023 162.56 cm 18.2 kg/m2 84094.79 g 66 /min 133/78 mm[Hg] genia Shelton in [facility], 10/08/2023 11:31:43 Date Recorded Body height Body mass index (BMI) Body weight Body temperature Heart rate Systolic And Diastolic Provider Name and Address Organization Details Last Updated DateTime 4 162.56 cm 18.2 kg/m2 13391.7 9 g 96.8 [degF] 71 /min 131/76 mm[Hg] genia cormier [place] - [facility], 4 09:19:36 Date Recorded Body height Body mass index (BMI) Body weight Heart rate Body temperature Systolic And Diastolic Provider Name and Address Organization Details Last Updated DateTime 4 162.56 cm 18 kg/m2 25967.2 g 67 /min 97.2 [degF] 131/79 mm[Hg] Yadi Donald Shelton in [facility], 4 11:04:29 Social History Question Answer Notes LastModified by Organizat ion Details LastModified Time Tobacco Smoking Status Current Every Day Smoker Not Available [facility] 03/06/2020 03:19:40 What Is Your Level Of Caffeine Consumption? Occasional [id number] Information not available 03/06/2020 In The 14 [...] For COVID-19? No Information not available 06/12/2021 What Type Of Diet Are You Following? REGULAR [id number] Information not available 03/06/2020 Which Illicit Or Recreational Drugs Have You Used? No [id number] Information not available 03/06/2020 Do You Reside In Or Have You Traveled To An Area Where Ebola Virus Transmission Is Active? No [id number] Information not available 03/06/2020 Education 12 Information no t available 03/08/2012 What Is The Highest Grade Or Level Of School You Have Completed Or The Highest Degree You Have Received? [id number] Information not available 06/12/2022 How Many Days In The Past Year [...] Date Of Your Most Recent Tobacco Screening? 08/01/2024 Information not available 08/01/2024 What Is Your Relationship Status? Information not available 06/12/2021 Are You Sexually Active? Yes [id number] Information not available 03/06/2020 At What Age Did You Start Smoking Tobacco? 12 Information not available 06/12/2021 How Much Tobacco Do You Smoke? 0.25 PPD [id number] Information not available 03/06/2020 General Stress Level Medium Information not available 03/08/2012 How Many Years Have You Smoked Tobacco? 30 Information not available 06/12/2021 Have You Recently (within The Last 12 Weeks, Or During A Current ) Traveled To Or Lived In A Zika-affected Area? No Information not available 03/31/2016 Sex: Female Functional Status Question Answer Note LastModified by Organizat ion Details LastModified Time Do you use any illicit or recreational drugs? No Information not available 06/12/2021 Do you or have you ever used any other forms of tobacco or nicotine? No Information not available 06/12/2021 What is your level of alcohol consumption? None [id number] Information not available 03/06/2020 Do you or have you ever used smokeless tobacco? Never used smokeless tobacco [id number] Information not available 03/06/2020 Are you currently employed? No Information not available 06/12/2021 What is your occupation? not at this time. Information not available 04/23/2020 Do you or have you ever used e-cigarettes or vape? Never used electronic cigarettes [id number] Information not available 03/06/2020 What is your exercise level? Occasional [id number] Information not available 03/06/2020 Mental Status Question Answer Note LastModified by Organization D etails LastModified Time Do you feel stressed (tense, restless, nervous, or anxious, or unable to sleep at night)? [id number] Information not available 06/12/2021 Family History Relationship Description Onset Age of [...] Problems N Kidney or Bladder Problems N Depression N GI Problems N Lung Disease N Defects or Inherited Disease N Anemia N History of Ovarian Cancer N History of Breast Cancer N ISSAC exposure N BRCA testing in past N Osteopenia N Psychiatric Illness N Diabetes N Anxiety Disorder Y Arthritis N Headaches or Migraines Y Infertility N Asthma N History of Cancer N Endometriosis N Hepatitis N Heart Disease N Hypertension N Osteoporosis N Gynecological History Statement/Question Response Flow Light Date of LMP 01/05/2024 Frequency of Cycle (Q days) 28 Menses Monthly N Duration of Flow (days) Age at Menarche 12 Current Control Method BCPs Most Recent Mammogram 07/30/2023 Age at First Child 24 Obstetrics History GPAL:G 3 P 2 0 1 2 Type Value Full Term 2 Living 2 Ectopics 1 Total 3 Immunizations Vaccine Type Date Status Note Provider Nam e and Address Organization Details Recorded Time Influenza, split virus, trivalent, PF 7 completed Not Available [facility] 05/21/2019 02:22:34 Influenza, split virus, trivalent, PF 2 completed Not Available [facility] 05/21/2019 02:22:34 Influenza, split virus, quadrivalent, preservative 0 completed Yadi gibson [place] [facility], 04/23/2020 09:46:20 Influenza, split virus, trivalent, PF 3 completed Not Available [facility] 05/21/2019 02:22:34 Influenza, MDCK, quadrivalent, PF 0 completed Yadi Meczywor null, [place] - [facility], 09/16/2023 10:42:32 Influenza, MDCK, quadrivalent, PF 8 completed Yadi Meczywor null, [place] - [facility], 09/16/2023 10:42:32 Influenza, MDCK, quadrivalent, PF 9 completed Yadi Meczywor null, [place] - [facility], 09/16/2023 10:42:32 Tdap 9 completed Yadi Meczywor null, [place] - [facility], 09/16/2023 10:42:32 Influenza, split virus, trivalent, preservative 8 completed Yadi Meczywor null, [place] - [facility], 09/16/2023 10:42:32 Influenza, split virus, trivalent, preservative 1 completed Yadi Meczywor null, [place] - [facility], 09/16/2023 10:42:32 Influenza, split virus, trivalent, preservative 6 completed Yadi Meczywor null, [place] - [facility], 09/16/2023 10:42:32 Influenza, split virus, trivalent, PF 7 completed Yadi Meczywor null, [place] - [facility], 09/16/2023 10:42:32 Td (adult), 2 Lf tetanus toxoid, preservative free, adsorbed 1 completed Yadi Meczywor null, [place] - [facility], 09/16/2023 10:42:33 Influenza, split virus, trivalent, PF 4 completed Not Available [facility] 05/21/2019 02:22:34 Past Encounters Encounter ID Performer Location Encounter Start Date Encounter Closed Date Diagnosis/Indication Diagnosis SNOMED-CT Code Diagnosis ICD10 Code Diagnosis Note [id number] MD MARISA Boothe MD [address] [place] [address],[address] [place] [address] 03/08/2012 13:20:35 03/08/2012 16:35:32 [id number] MD MARISA Boothe MD [address] [place] [address],[address] [place] [address] 03/15/2013 10:20:11 03/15/2013 15:47:44 Specialized medical examination 81484444 Influenza vaccine needed 1663805973 106 Tobacco de pendence syndrome 79032909 [id number] MD MARISA Boothe MD [address] [place] [address],[address] [place] [address] 03/20/2014 10:43:43 03/20/2014 11:32:36 Specialized medical examination [id number] MD MARISA Boothe MD [address] [place] [address], [place] [address] 03/21/2014 13:32:11 03/21/2014 14:57:53 Influenza vaccine needed 0219739457 106 [id number] MD MARISA Boothe MD [address] [place] [address], [place] [address] 04/04/2014 13:42:09 04/04/2014 15:44:13 Vulvitis 19858002 [id number] MD MARISA Boothe MD [address] [place] [address], [address] [place] [address] 03/23/2015 10:40:01 03/23/2015 13:17:54 Specialized medical examination 83618199 Z04.8 Z01.419 Venereal d isease screening 950005219 Z11.3 [id number] MD MARISA Boothe MD [address] [place] [address], [place] [address] 03/31/2016 10:56:28 03/31/2016 13:08:23 Specialized medical examination 46007524 Z01.419 Venereal d isease screening 972611440 Z11.3 Tobacco de pendence syndrome 87849642 F17.290 [id number] MD MARISA Boothe MD [address] [place] [address], [place] [address] 04/06/2017 09:55:01 04/06/2017 14:25:27 Specialized medical examination 33415630 Z01.419 Venereal d isease screening 901916330 Z11.3 Influenza vaccine needed 0830645847 106 Z23 Enlarged uterus 37205182 4 N85.2 [id number] MD MARISA Boothe MD [address] [place] [address] [place] [address] 05/25/2017 10:39:35 05/25/2017 13:07:35 Cyst of ovary 84733335 N83.01 [id number] MD MARISA Boothe MD [address] [place] [address] [place] [address] 04/19/2018 10:38:21 04/19/2018 12:13:00 Specialized medical examination 03091368 Z01.419 Screening for malignant neoplasm of rectum 556811115 Z12.12 Screening mammography 24 302646 Z12.31 [id number] MD MARISA Boothe MD [address] [place] [address],[facility] [place] [address] 04/21/2019 13:19:45 04/21/2019 15:34:49 Specialized medical examination 95851675 Z01.419 Screening for malignant neoplasm of rectum 245325494 Z12.12 Screening mammography 24 981463 Z12.31 Tobacco de pendence syndrome 54867891 F17.290 [id number] MD MARISA Boothe MD [address] [place], [place] [address]E [place] [address] 05/09/2019 13:37:08 05/09/2019 14:57:05 Irregular intermenstrual bleeding 77985841 N92.1 Acute lowe r urinary tract infection 672399166 R30.0 [id number] MD MARISA Boothe MD [address] [place], [place] [address] [place] [address] 04/23/2020 09:40:21 04/23/2020 10:43:05 Specialized medical examination 23131629 Z01.419 Screening for malignant neoplasm of rectum 224874705 Z12.12 Screening mammography 24 495869 Z12.31 Cyst of right ovary 1223 467661 3101646 N83.201 [id number] MD MARISA Boothe MD [address] [place] [address] [place] [address] 06/21/2020 09:40:26 06/21/2020 10:34:18 Cyst of ovary 47350023 N83.01 [id number] MD MARISA Boothe MD [address] [place] [address] [place] [address] 06/12/2021 11:03:39 06/14/2021 13:00:39 Specialized medical examination 25330508 Z01.419 Screening for malignant neoplasm of rectum 209647520 Z12.12 Screening mammography 24 517663 Z12.31 [id number] MD MARISA Boothe MD [address] [place], [place] [address] [address] 10/10/2021 14:31:32 10/11/2021 11:34:40 Fatigue 63432353 R53.83 Abnormal u terine bleeding 7140166374 9100 N93.8 [id number] MD MARISA Boothe MD [address] [place] [address] [place] [address] 06/12/2022 10:48:40 06/12/2022 14:30:34 Specialized medical examination 31600274 Z01.419 Screening for malignant neoplasm of rectum 787047878 Z12.12 Screening mammography 24 087314 Z12.31 Cyst of right ovary 1223 967613 8464197 N83.201 [id number] MD MARISA Boothe MD [address] [place] [address] [place] [address] 09/23/2022 14:14:50 09/23/2022 15:52:10 Abnormal uterine bleeding 2187131755 9100 N93.8 Cyst of right ovary 1223 814155 1822141 N83.201 [id number] MD MARISA Boothe MD [address] [place] [address] [place] [address] 11/20/2022 13:51:41 11/20/2022 14:48:19 Oligoovulatory dysfunctional uterine bleeding 084791693 N93.8 [id number] MD MARISA Boothe MD [address] [place] [address],[place] [address] 06/18/2023 10:54:23 06/18/2023 13:39:37 Specialized medical examination 56695494 Z01.419 Screening for malignant neoplasm of rectum 445867298 Z12.12 Screening mammography 24 412052 Z12.31 [id number] MD MARISA Boothe MD [address] [place] [address],[place] [address] 09/16/2023 10:36:51 09/16/2023 11:58:58 Atypical squamous cells of undetermined significance on cervical Papanicolaou smear 967147025 R87.610 Candidal vulvovaginitis 85364857 B37.31 Vulvitis 51644836 N76.2 B96.89 [id number] MD MARISA Boothe MD [address] [place] [address],[place] [address] 10/08/2023 11:27:55 10/08/2023 14:12:21 Amenorrhea 98389332 N91.1 Candidal vulvovaginitis 17820547 B37.31 Vulvitis 36279210 N76.2 B96.89 [id number] MD MARISA Boothe MD [address] [place] [address],[place] [address] 10/23/2023 09:15:48 10/23/2023 12:05:06 Candidal vulvovaginitis 44756189 B37.31 [id number] MD MARISA Boothe MD [address] [place] [address],[place] [address] 01/19/2024 11:00:35 01/19/2024 13:50:02 Atypical squamous cells of undetermined significance on cervical Papanicolaou smear 658981617 R87.610 [id number] MD MARISA Boothe MD [address] [place] [address],[address] [place] [address] 08/01/2024 11:01:33 08/01/2024 15:46:03 Specialized medical examination 23816537 Z01.419 Screening for malignant neoplasm of rectum 378609098 Z12.12 Screening mammography 24 398698 Z12.31 Health Concerns Section Related Observation LastModified by Organization Detai ls LastModified Time None Recorded Concern Status LastModified by Organization Details LastModified Time None Recorded Advance Directives Directive None Recorded Payers Insurance Date Sequence Insurance Name Policy Number Policy Kwong Covered Member ID Kwong Member ID Guarantor Name 07/29/2024 1 [place]: [employer] [employer] - [place] [facility] [id number] (PPO) [id number] 1 Oswaldo Singh [id number] IVAN Jayla Singh Notes Date Note Type Note Provider Name and Address Organization Details Recorded Time 09/16/2023 text/html She is here for repeat [...] radha done today. Marisa Ramirez MD [address], [place], [address], [place] - [facility], 09/16/2023 11:21:01 10/08/2023 text/html She is here [...] 7 vaginal cream. Marisa Ramirez MD [address], [place], [address], [place] - [facility], [...] discharge, now resolved. Marisa Ramirez MD [address], [place], [address], [place] - [facility], 10/23/2023 09:41:20 01/19/2024 text/html She is here for repeat pap after pap with ASCUS without HR HPV. Marisa Ramirez MD [address], [place], [address], [place] - [facility], 01/19/2024 11:42:58 08/01/2024 text/html She is here for annual, smoker, on progetin pill. She needs neck surgery To replace a disc is in pain. __ Note from 2023: She is here for annual, doing well on the progestin pill, as she is a smoker. She does have occasional intermenstrual spotting.EMB 11/23 showed superficial strips of inactive endometrium. She notes that she has had deep dyspareunia since her first sexual encounter at age 14, always same partner. Marisa Ramirez MD [address], [place], [address], [place] - [facility], 08/01/2024 11:34:34 OBGyn Episode No OBEpisode recorded.
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
== END 2024-11-08 10:34 | disposition home or self-care (01) ==
LOC: HO.HSMS 09:52
PROVIDERS: PCP Physician Assistant; Visit Provider Psychiatry & Neurology Neurology
DX: G24.3 Spasmodic torticollis (principal)
CPT/HCPCS: 64616

== ENCOUNTER → 2024-11-08 09:51 | Outpatient (BNVA) | payer BC, SELFPAY | PROVIDERS: PCP Physician Assistant; Visit Provider Psychiatry & Neurology Neurology | DX: G24.3 Spasmodic torticollis (principal); M54.2 Cervicalgia | CPT/HCPCS: 64616; 99211; J0585 ==

== ENCOUNTER 2025-03-28 13:32 | Outpatient (AMB) | payer BC, SELFPAY ==
--- NOTE | 2025-03-28 13:32 | A.OFFVIS_ITS ---
Vital Signs 03/28/25 13:33 Height 5 ft 4 in Weight 99 lb 2 oz BMI 17.0 BP 128/82 Blood Pressure Location Rt brachial Position Sitting Pulse 65 Pulse Source Pulse Oximeter Pulse Oximetry (%) 99 Oxygen Delivery Method Room Air Intake Visit Reasons: Botox Intake Note: Botox 200 Vocational Rehab Consultant Required: No Accompanied by: Self / Same As Patient Allergies amoxicillin Allergy (Verified 03/28/25 13:33) Vomiting HPI Comments Details: 44y/o female comes for treatment of her cervical dystonia ? Side effects including spread of toxin effect, dysphagia, breathing difficulties , bronchitis etc was discussed in detail and the patient agreed to the procedure.An informed consent was obtained ??? Botulinum toxin type A 200units X 1 -was diluted with 4 cc of normal saline at a concentration of 25 units in 0.5cc saline. Lot number [id number] expiration 07/2027 ??? Muscles injected ? Madhu levator 50 units each ??? BilTrapezius 25 units each ??? Total used 150 units Discarded 50 units PFSH Medical History Cervical dystonia Chronic headaches Dorsalgia Cervicalgia Panic Acarophobia Surgical History Hx of tonsillectomy Family History Father Diabetes mellitus Maternal Grandmother Cancer Social History Household Members: Spouse and Children Alcohol intake: current Alcohol intake frequency: does not drink Patient Tobacco Use Status: Never used Tobacco Current occupational status: unemployed Physical Exam Vital Signs: Last Vital Signs Pulse 65 03/28/25 13:33 BP 128/82 03/28/25 13:33 Pulse Ox 99 03/28/25 13:33 Oxygen Delivery Method Room Air 03/28/25 13:33 BMI result Body Mass Index 17.0 Const General: cooperative and anxious Nutritional Appearance: thin Orientation/consciousness: patient oriented x3 Eyes Pupils: Equal, round and reactive pupils present Neuro Other: Cervical dystonia - tenderness in the madhu levators and scalene General: patient oriented x3, gait normal, tone normal, moves all extremities, no focal motor deficits, CN's II-XI intact bilaterally and other (tenderness in madhu medial epicondyle) Cranial nerves: Yes Equal, round and reactive pupils present and Yes Normal facial strength present Cognition (Neuro): normal cognition Motor exam (neuro): 5/5 motor strength present throughout Psych Affect: Anxious affect present Office Procedures Botulinum toxin Injection 58103 - Dystonia Procedure code (CPT) selection complete Office Meds onabotulinumtoxinA 200 unit solution for injection Performing Provider: Vilma Saeed MD Performing Location: [facility] Administered by: Vilma Saeed MD on 03/28/25 14:51 Dose Route Admin Location Dispensed Lot Number Expiration Date [facility] Powder Shoveler 150 unit IM 200 units [id number] ALLERGAN /BOTOX Total Dispensed Waste 200 units 25 % Comments: see hpi Assessment & Plan Assessment & Plan (1) Cervicalgia: Code(s): M54.2 - Cervicalgia Category: Medical (2) Cervical dystonia: Code(s): G24.3 - Spasmodic torticollis Category: Medical Plan Patient tolerated the procedure well she will call with any side effects Orders: Orders AMB Botulinum toxin Injection Today G24.3 - Spasmodic torticollis PT Evaluation and Treatment Today G24.3 - Spasmodic torticollis Coding Level of Care Code Est Pt Level 1 (93425) Diagnoses Cervicalgia M54.2 Cervical dystonia G24.3 CPT Codes Botox Injection - Botox 4: 07796 - Dystonia ([id number])
[2025-03-28 13:33] VITALS: BP 128/82; PULSE 65; O2SAT 99; BMI 17.0
--- OUTSIDE RECORDS SUMMARY | 2025-03-28 17:26 | XMS_ITS | Data Portability ---
Author Organization [place] [facility] Address [id number] [place] [address] Care Team Providers Care Band Sawyer Name Role Phone BRANDI PINEDA Primary Care Provider Assessment Encounter Date Assessment Date Assessment LastModified by Organization Details LastModified Time 01/17/2025 01/17/2025 pelvic pain, dysmenorrhea, ? fibroid uterus vs adenomyoma hx ovarian cyst: cont despite OCP Does not desire childbearing ability, x 2 Options reviewed: Medication, observation, awaiting menopause, change OCP, IUD/ Mirena, Lupron, OR: RTLH vs myomectomy, vaginal hysterectomy versus total abdominal hysterectomy versus minimally invasive surgery Risks, benefits, alts, postop precaution/recov lino reviewed Declines all alternatives including no treatment and continued observation Declines further w/u or consultations OR reviewed: risks, benefits, alternatives, ovarian removal vs conservation, further OR, continued or worsening of symptoms, menopause and meds, medical and lifestyle risks of early menopause possible open procedure, prolonged recovery, possible need to bivalve or slice the uterus to remove, cancer risk and worsening of prognosis if found, possible seeding of abdomen and pelvis, need for further staging at separate visit reviewed Postop precautions/rest rictions, recovery, and follow up reviewed Lab evaluation and bowel prep reviewed/ Informed Consent reviewed and signed desires minimally invasive surgery if able opts for RTLH/BSO [email or web address] Not available 01/17/2025 16:05:54 02/06/2025 02/06/2025 Normal post op: increase activity as tolerated, precautions reviewed Follow up in 5-6 weeks or PRN Path, OR, follow up reviewed Refer to GI sent has appt booked [email or web address] Not available 02/06/2025 14:55:28 Plan of Treatment Reminders Order Date Submit Date Provider Last Modified By Organization Details Last Modified Time Details Appointments POST OP VISIT 15 025 01:15PM Dr. Bar Singh Not available Not available Not available Lab None recorde d. Referral None recorde d. Procedures None recorde d. Surgeries None recorde d. Imaging None recorde d. Medication Orders None recorde d. Patient TargetsNo targets recorded. Patient InstructionsNo instructions recorded. Reason for Referral None Reported. Results Created Date Observation Date Name Description Value Unit Range Abnormal Flag Note LastModifiedBy Organization Detail LastModifiedTime 01/25/2001/25/2025 CBC (INCL UDES DIFF/ PLT) white blood cell count 8.1 thous and/u L 3.8-10 .8 normal Not Available [facility] [address], [address], 01/25/2025 05:14:51 01/25/2001/25/2025 CBC (INCL UDES DIFF/ PLT) red blood cell count 4.26 concepción on/uL 3.80-5 .10 normal Not Available [facility] [address], [address], 01/25/2025 05:14:51 01/25/2001/25/2025 CBC (INCL UDES DIFF/ PLT) hemoglobin 13.2 g/dL 11.7-1 5.5 normal Not Available [facility] [address], [address], 01/25/2025 05:14:51 01/25/2001/25/2025 CBC (INCL UDES DIFF/ PLT) hematocrit 41.9 % 35.0-4 5.0 normal Not Available [facility] [address], [address], 01/25/2025 05:14:51 01/25/2001/25/2025 CBC (INCL UDES DIFF/ PLT) MCV 98.4 fL 80.0-1 00.0 normal Not Available [facility] [address] [place], [place], [address], 01/25/2025 05:14:51 01/25/2001/25/2025 CBC (INCL UDES DIFF/ PLT) MCH 31.0 pg 27.0-3 3.0 normal Not Available [facility] [address] [place], [place], [address], 01/25/2025 05:14:51 01/25/2001/25/2025 CBC (INCL UDES DIFF/ PLT) MCHC 31.5 g/dL 32.0-3 6.0 low For adult s, a sligh t decre ase in the calcu lated MCHC value (in the range of 30 to 32 g/dL) is most likel y not clini ger signi julia t; dionisio er, it shoul d be inter prete d with cauti on in virtua voorhees n with other red cell yannick eters and the patie nt's clini kemal condi tion. Not Available [facility] [address] [place], [place], [address], 01/25/2025 05:14:51 01/25/2001/25/2025 CBC (INCL UDES DIFF/ PLT) RDW 12.7 % 11.0-1 5.0 normal Not Available [facility] [address] [place], [place], [address], 01/25/2025 05:14:51 01/25/2001/25/2025 CBC (INCL UDES DIFF/ PLT) platelet count 285 thous and/u L 140-40 0 normal Not Available [facility] [address], [place], [address], 01/25/2025 05:14:51 01/25/2001/25/2025 CBC (INCL UDES DIFF/ PLT) MPV 10.6 fL 7.5-12 .5 normal Not Available [facility] [address], [place], [address], 01/25/2025 05:14:51 01/25/20 25 01/25/2025 CBC (INCL UDES DIFF/ PLT) absolute neutrophils 3896 cells /uL 1500-7 800 normal Not Available [facility] [address], [place], [address], 01/25/2025 05:14:51 01/25/20 25 01/25/2025 CBC (INCL UDES DIFF/ PLT) absolute lymphocytes 3434 cells /uL 850-39 00 normal Not Available [facility] [address], [place], [address], 01/25/2025 05:14:51 01/25/20 25 01/25/2025 CBC (INCL UDES DIFF/ PLT) absolute monocytes 551 cells /uL 200-95 0 normal Not Available [facility] [address], [place], [address], 01/25/2025 05:14:51 01/25/20 25 01/25/2025 CBC (INCL UDES DIFF/ PLT) absolute eosinophils 170 cells /uL 15-500 normal Not Available [facility] [address], [place], [address], 01/25/2025 05:14:51 01/25/20 25 01/25/2025 CBC (INCL UDES DIFF/ PLT) absolute basophils 49 cells /uL 0-200 normal Not Available [facility] [address], [address], 01/25/2025 05:14:51 01/25/20 25 01/25/2025 CBC (INCL UDES DIFF/ PLT) neutrophils 48.1 % normal Not Available [facility] [address], [place], [address], 01/25/2025 05:14:51 01/25/20 25 01/25/2025 CBC (INCL UDES DIFF/ PLT) lymphocytes 42.4 % normal Not Available [facility] [address], [place], [address], 01/25/2025 05:14:51 01/25/2001/25/2025 CBC (INCL UDES DIFF/ PLT) monocytes 6.8 % normal Not Available [facility] [address], [place], [address], 01/25/2025 05:14:51 01/25/2001/25/2025 CBC (INCL UDES DIFF/ PLT) eosinophils 2.1 % normal Not Available [facility] [address], [place], [address], 01/25/2025 05:14:51 01/25/2001/25/2025 CBC (INCL UDES DIFF/ PLT) basophils 0.6 % normal Not Available [facility] [address], [place], [address], 01/25/2025 05:14:51 01/25/2001/25/2025 HCG, TOTAL , QN HCG, total, qn <5 mIU/m L normal Refer ence Range Nonpr egnan t or preme nopau luis <5 Postm enopa usal <10 Value s from diffe rent assay metho ds may vary. The use of this assay to monit or or to diagn ose patie nts with cance r or any condi tion unrel ated to pregn perez has not been clear ed or appro hernan by the FDA or the [facility] actur er of the assay . Not Available [facility] [address], [place], [address], 01/25/2025 05:14:51 Result Notes None recorded. Problems Name Problem SNOMED Code Status Onset Date Resolution Date Notes Provider Name and Address Organization Details Recorded Time Arthritis 0521210 Active 025 [facility], [facility] 5 13:53:44 Mixed anxiety and depressive disorder 554060809 Active 025 [facility], [facility] 5 13:53:59 History of migraine 630607059 Active 025 [facility] 5 13:54:15 Problem Notes None recorded. Procedures Surgical History Date Name Laterality Status Provider Name and Address Organization Details Recorded Time 01/27/20 Hysterectomy total with removal cervix and bso completed BAR SINGH MD [address] [place] [address], [place], [id number], [facility] 01/31/2025 09:45:56 Imaging Results None recorded. Procedure Notes None recorded. Medical Equipment None Reported. Allergies No known drug allergies Medications Name Sig Start Date Stop Date Status Note LastModified by Organization Details LastModified Time celecoxib 200 mg capsule TAKE 1 CAPSULE BY MOUTH ONCE A DAY NEEDED FOR PAIN active Not Available Not Available No t Available meloxicam 15 mg tablet TAKE 1 TABLET BY MOUTH EVERY DAY NEEDED FOR PAIN 01/17 completed Not Available Not Available Not Available ibuprofen 600 mg tablet TAKE 1 TABLET 3 TIMES A DAY BY ORAL ROUTE NEEDED. active Not Available Not Available No t Available sertraline 50 mg tablet TAKE 1 TABLET BY MOUTH EVERY DAY active Not Available Not Available No t Available oxycodone 5 mg tablet Take 1 tablet every 4 hours by oral route as needed. 2024 active Not Available Not Available Not Avai lable Incassia 0.35 mg tablet TAKE 1 TABLET BY MOUTH EVERY DAY active Not Available Not Available No t Available Clenpiq 10 mg-3.5 gram-12 gram/175 mL oral solution TAKE 175 ML BY MOUTH 2 TIMES A DAY. 01/17 completed Not Available Not Available Not Available Vitals Date Recorded Body weight Body mass index (BMI) Body height Systolic And Diastolic Provider Name and Address Organization Details Last Updated DateTime 01/17/2025 72937.46 g 16.6 kg/m2 162.56 cm 110/78 mm[Hg] Beverly Patel [facility] 01/17/2025 13:51:24 Date Recorded Body height Body mass index (BMI) Body weight Systolic And Diastolic Provider Name and Address Organization Details Last Updated DateTime 02/06/2025 162.56 cm 16.6 kg/m2 55957.46 g 138/82 mm[Hg] Zack Benavides [facility] 02/06/2025 13:38:46 Social History Question Answer Notes LastModified by Organization D etails LastModified Time Has Tobacco Cessation Counseling Been Provided? Yes [facility] Information not available 01/17/2025 Sex: Unknown Functional Status Question Answer Note LastModified by Organization D etails LastModified Time What is your level of alcohol consumption? None [email or web address] Information not available 01/17/2025 Mental Status None recorded. Family History Relationship Description Onset Age of this Age Resolved Age Notes LastModified by Organization Details LastModified Time Father Malignant neoplasm of prostate [email or web address] Not available 2024 13:55:00 Father Diabetes mellitus [facility] Not available 2024 13:55:19 Mother Diabetes mellitus [email or web address] Not available 2024 13:55:19 Medical History No medical history recorded. Gynecological HistoryNo gynecological history recorded. Obstetrics History GPAL:G 0 P 0 0 0 0 Past Encounters Encounter ID Performer Location Encounter Start Date Encounter Closed Date Diagnosis/Indication Diagnosis SNOMED-CT Code Diagnosis ICD10 Code Diagnosis IMO Codes Diagnosis Note [id number] BAR SINGH MD [id number] [place] [id number] 01/17/2025 13:10:13 01/18/2025 09:21:34 Pre-surgery evaluation 677479539 Z01.818 Procedure not done 84402 7000 Z53.20 [id number] BAR SINGH MD [id number] [place] [id number] 02/06/2025 13:35:27 02/10/2025 14:55:08 Postoperative visit 161562196 Z09 Health Concerns Section Related Observation LastModified by Organization Detai ls LastModified Time None Recorded Concern Status LastModified by Organization Details LastModified Time None Recorded Advance Directives Directive None Recorded Payers Insurance Date Sequence Insurance Name Policy Number Policy Kwong Covered Member ID Kwong Member ID Guarantor Name 02/10/2025 1 [place] [id number] Oswaldo Singh [id number] CN Jayla Singh Notes Date Note Type Note Provider Name and Address Organization Details Recorded Time 01/17/2025 text/html CT scan in ER: left ovary with 2.2 cm cyst, possible small myoma vs adenomyoma in uterus, no signs torsionhx pelvic pain and dyspareunia, + constipation issuesbenign EMBx and PAP in pasthx ASCUS in pastSVD X 2, does not desire further child bearing abilityhx ovarian cysts despite OCPVisit to review options and OR, risks/benefits/alt s/preop and postop reviewed: questions answered BAR SINGH MD [address] [place] [address], [phone], [place] [facility] 01/17/2025 16:06:34 02/06/2025 text/html 01/26/2025 : RTLH/BSO: benign myomasDoing well, no f/c/s/n/v/d/c, no bleeding, bowels and bladder working wellocc pain medsstill with difficulty with BM and flatus as prior to OR: will refer to GI has appt booked BAR SINGH MD [address] [place] [address], [phone], [facility] 02/06/2025 14:55:32 OBGyn Episode No OBEpisode recorded.
--- OUTSIDE RECORDS SUMMARY | 2025-03-28 17:26 | XMS_ITS | Continuity of Care Document ---
Author Organization [place] [facility],, MARISA ALEMAN MD Address [address] [address] Care Team Providers Care Stucco Worker Name Role Phone BRANDI PINEDA OTHER Assessment No assessment recorded. Plan of Treatment Reminders Order Date Submit Date Provider Last Modified By Organization Details Last Modified Time Details Appointments None recorded. Lab test, urine 2024 025 [email or web address] n1 In-Office Order, Internal Use Only DO Not Attach Compendium DO Not Attach Compendium, Do Not Delete/merge, [id number] 14:19:47 beta-HCG, qualitative , serum or plasma 2024 025 MCGREGOR [facility], [address], [place], [address], 08:07:42 Referral None recorded. Procedures None recorded. Surgeries None recorded. Imaging US, pelvis, transabdomi nal + transvagina l - 10 days of RLQ pain, negative urine GCG, serum test pending. In 2009 she had a right ectopic treated with methotrexat e and then later she had an HSG to improve patency. No spotting 2024 025 [facility], [address], [place], [address], 09:15:16 Medication Orders None recorded. Patient TargetsNo targets recorded. Patient Instructions Encounter Date Encounter Id Patient Instructions Last Modified By Organization Details Last Modified Time 01/09/2025 [id number] possible appendicitis: care instructions Not available 01/09/2025 14:19:47 She is here for a history of 10 days of RLQ pain. In 2009 she had a right ectopic treated with methotrexate and then later she had an HSG to improve patency. No spotting. She takes the progestin pills, has missed no pills. She has no breast tenderness. Same partner for decades. There is some question as to whether the prior ectopic was on the right or left, she remember right side today, but in 2019 had said it was on the left. Urine HCG is negative, check serum HCG just to be cautious. Will order pelvic sonogram. She is advised if pain worsens or if spotting occurs she needs to go directly to the ED. She is aware that even with a negative urine HCG she could have an ectopic. After we ordered the blood testing and schedule the sonogram for Thursday evening she notes that she is very worried because it feels like the prior ectopic , and she is going to go to [facility] now just to be cautious. This is reasonable as we could not get the sono scheduled for 2 days. She will go to [facility] now. Not available 01/09/2025 14:49:13 Reason for Referral None Reported. Results Created Date Observation Date Name Description Value Unit Range Abnormal Flag Note LastModifiedBy Organization Detail LastModifiedTime 01/10/2001/09/2025 pregn perez test, urine HCG negati ve Not Available In-Office Order Internal Use Only DO Not Attach Compendium DO Not Attach Compendium, Do Not Delete/merge, [id number] 01/09/2025 14:06:56 01/11/2001/11/2025 HCG QL W/REF CHRISTIAN TO HCG QN HCG,beta subunit,qual Negati ve mIU/m L negati ve <6 Not Available [facility] ([facility]) [address] [facility], [place], [address], 01/11/2025 08:07:42 01/11/2001/09/2025 US, pelvi s, trans abdom inal + trans vagin al No observ ation record ed. BARCODE [facility] [address], [place], [address], 01/10/2025 09:15:16 Result Notes None recorded. Problems Name Problem SNOMED Code Status Onset Date Resolution Date Notes Provider Name and Address Organization Details Recorded Time Vulvitis 89985210 Active Marisa Aleman MD [address], [place], [address] , [place] - [facility], 4 15:12:56 Anxiety state 405051619 Active Not Available [facility] 3 03:01:04 Cyst of ovary 03796485 Active Not Available [facility] 3 03:01:04 Tobacco dependenc e syndrome 80546725 Active CAN NOT TAKE THE COMBINATIO N CONTROL PILL IF SHE SMOKES Marisa Aleman MD [address], [place], [address] , [place] - [facility], 6 11:36:22 Specializ ed medical examinati on Active Marisa Aleman MD [address], [place], [address] , [place] [facility], 5 13:20:56 Past history of ectopic 491907700 Active 2009 She has a past history in 2009 of left sided ectopic treated with methotrexa te in 2009. She had a post procedure HSG which showed bilaterall y patent tubes after treatment. Marisa Aleman MD [address], [place], [address] , [place] - [facility], 0 14:12:33 Carpal tunnel syndrome 77265109 Active 2021 Evy gibson [place] - [facility], 2 14:46:35 Problem Notes None recorded. Procedures Surgical History Date Name Laterality Status Provider Name and Address Organization Details Recorded Time 07/30/19 24 Most Recent Mammogram completed Yadi Bennett [place] - [facility], 07/25/2024 08:10:55 11/21/19 23 Endometrial Biopsy completed Marisa Aleman MD [address], [place], [address], [place] [facility], 11/20/2022 14:26:11 05/04/19 10 removal of product of conception of ectopic completed Marisa Aleman MD [address], [place], [address], [place] [facility], 01/09/2025 14:17:52 05/04/18 96 Other completed Yadi Donald [place] - [facility], 03/08/2012 13:37:41 05/04/18 84 Tonsillectomy completed Aarti Juancarlos [place] - [facility], 03/20/2014 10:57:09 Imaging Results None recorded. Procedure Notes None recorded. Medical Equipment None Reported. Allergies No known drug allergies Medications Name Sig Start Date Stop Date Status Note LastModified by Organization Details LastModified Time celecoxib 200 mg capsule TAKE 1 CAPSULE BY MOUTH ONCE A DAY NEEDED FOR PAIN active Not Available Not Available No t Available methocarbam ol 500 mg tablet TAKE 1 [...] t Available Vitals Date Recorded Body height Heart rate Body mass index (BMI) Body weight Systolic And Diastolic Provider Name and Address Organization Details Last Updated DateTime 01/09/2025 162.56 cm 76 /min 17.4 kg/m2 52395.55 g 143/95 mm[Hg] Yadi Bennett [place] - [facility], 01/09/2025 14:03:16 Social History Question Answer Notes LastModified by Organizat ion Details LastModified Time Tobacco Smoking Status Current Every Day Smoker Not Available [facility] 03/06/2020 03:19:40 What Is Your Level Of Caffeine Consumption? Occasional [id number] Information not available 03/06/2020 In The 14 [...] Type Of Diet Are You Following? REGULAR [id number] Information not available 03/06/2020 Which Illicit Or Recreational Drugs Have You Used? No [id number] Information not available 03/06/2020 Do You Reside In Or Have You Traveled To An Area Where Ebola Virus Transmission Is Active? No [id number] Information not available 03/06/2020 Education 12 Information no t available 03/08/2012 What Is The Highest Grade Or Level Of School You Have Completed Or The Highest Degree You Have Received? [id number] Information not available 06/12/2022 How Many Days [...] Female Information not available 03/31/2016 Marital Status [email or web address] Informatio n not available 03/08/2012 What Was The Date Of Your Most Recent Tobacco Screening? 01/09/2025 Information not available 01/09/2025 What Is Your Relationship Status? Information not available 06/12/2021 Are You Sexually Active? Yes [id number] Information not available 03/06/2020 At What Age Did You Start Smoking Tobacco? 12 Information not available 06/12/2021 How Much Tobacco Do You Smoke? 0.25 PPD [id number] Information not available 03/06/2020 General Stress Level [...] is your level of alcohol consumption? None [id number] Information not available 03/06/2020 Do you or have you ever used smokeless tobacco? Never used smokeless tobacco [id number] Information not available 03/06/2020 Are you currently employed? No Information not available 06/12/2021 What is your occupation? not at this time. Information not available 04/23/2020 Do you or have you ever used e-cigarettes or vape? Never used electronic cigarettes [id number] Information not available 03/06/2020 What is your exercise level? Occasional [id number] Information not available 03/06/2020 Mental Status Question Answer Note LastModified by Organization D etails LastModified Time Do you feel stressed (tense, restless, nervous, or anxious, or unable to sleep at night)? [id number] Information not available 06/12/2021 Family History Relationship [...] virus, trivalent, PF 7 completed Not Available [facility] 05/21/2019 02:22:34 Influenza, split virus, trivalent, PF 2 completed Not Available [facility] 05/21/2019 02:22:34 Influenza, split virus, quadrivalent, preservative 0 completed Yadi gibson [place] [facility], 04/23/2020 09:46:20 Influenza, split virus, trivalent, PF 3 completed Not Available [facility] 05/21/2019 02:22:34 Influenza, MDCK, quadrivalent, PF 0 completed Yadi Meczywor null, [place] - [facility], 09/16/2023 10:42:32 Influenza, MDCK, quadrivalent, PF 8 completed Yadi Meczywor null, [place] - [facility], 09/16/2023 10:42:32 Influenza, MDCK, quadrivalent, PF 9 completed Yadi Meczywor null, [place] - [facility], 09/16/2023 10:42:32 Tdap 9 completed Yadi Meczywor null, [place] [facility], 09/16/2023 10:42:32 Influenza, split virus, trivalent, preservative 8 completed Yadi Meczywor null, [place] [facility], 09/16/2023 10:42:32 Influenza, split virus, trivalent, preservative 1 completed Yadi Meczywor null, [place] [facility], 09/16/2023 10:42:32 Influenza, split virus, trivalent, preservative 6 completed Yadi Meczywor null, [place] [facility], 09/16/2023 10:42:32 Influenza, split virus, trivalent, PF 7 completed Yadi Meczywor null, [place] [facility], 09/16/2023 10:42:32 Td (adult), 2 Lf tetanus toxoid, preservative free, adsorbed 1 completed Yadi Meczywor null, [place] [facility], 09/16/2023 10:42:33 Influenza, split virus, trivalent, PF 4 completed Not Available [facility] 05/21/2019 02:22:34 Past Encounters Encounter ID Performer Location Encounter Start Date Encounter Closed Date Diagnosis/Indication Diagnosis SNOMED-CT Code Diagnosis ICD10 Code Diagnosis IMO Codes Diagnosis Note [id number] MD MARISA Boothe MD [address] [facility] [address] [place] [address] 01/09/2025 14:00:07 01/09/2025 15:25:24 Right lower quadrant pain 913325563 R10.31 451294 Past pregn perez history of ectopic 235439833 Z87.59 Health Concerns Section Related Observation LastModified by Organization Detai ls LastModified Time None Recorded Concern Status LastModified by Organization Details LastModified Time None Recorded Payers Encounter Date Sequence Insurance Name Policy Number Policy Kwong Covered Member ID Kwong Member ID Guarantor Name 01/09/2025 1 [facility]: [employer] [facility] [employer] (PPO) [id number] 1 Oswaldo Singh [id number] Jayla Singh Notes Date Note Type Note Provider Name and Address Organization Details Recorded Time 01/09/2025 text/html She is here for a history of 10 days of RLQ pain. In 2009 she had a right ectopic treated with methotrexate and then later she had an HSG to improve patency. No spotting. She takes the progestin pills, has missed no pills. She has no breast tenderness. There is some question as to whether the prior ectopic was on the right or left, she remember right side today, but in 2019 had said it was on the left. Marisa Aleman MD [address] [facility],[address], [place], [address], [place] [facility], 01/09/2025 14:49:39 OBGyn Episode No OBEpisode recorded.
--- OUTSIDE RECORDS SUMMARY | 2025-03-28 17:26 | XMS_ITS | Clinical Summary ---
Author Organization [facility] Address [address] [place] [id number] Care Team Providers Care Legislative Advocate Name Role Phone Evan Yousif MD Primary Care Provider + [phone] Allergies Active Allergy Reactions Criticality Noted Date Comments Amoxicillin GI Intolerance/Nausea/Vomiting Low 01/02 Medications sertraline (ZOLOFT) 50 MG tablet Take 1 tablet (50 mg total) by mouth every morning. Active celeCOXIB (CeleBREX) 100 MG capsule Take 1 capsule (100 mg total) by mouth as needed for mild pain. Active Active Problems Problem Noted Date Diagnosed Date Pelvic pain in female 01/23/2025 Secondary dysmenorrhea 01/23/2025 Adenomyosis of the uterus 01/23/2025 Encounters Date Type Department Care Team Description 01/26/2025 8:31 AM EDT Anesthesia Event [facility] [address] [place] [phone] Desean Sunshine MD Conner, Abigail, CRNA 01/26/2025 8:30 AM EDT - 01/26/2025 11:30 AM EDT Surgery [facility] [address] [place] [phone] Bar Luis MD ROBOTIC ASSISTED LAPAROSCOPY HYSTERECTOMY WITH BILATERAL SALPINGO-OOPHORECTO MY 01/26/2025 6:32 AM EDT - 01/26/2025 1:55 PM EDT Hospital Encounter [facility] [address] [place] [phone] Bar Luis MD Discharge Disposition: Home or Self Care from Last 3 Months Family History Medical History Relation Name Comments Diabetes type II Father Prostate cancer Father Diabetes type II Mother Relation Name Status Comments Father Mother Social History Tobacco Use Types Packs/Day Years Used Date Smoking Tobacco: Every Day Cigarettes Smokeless Tobacco: Never Tobacco Cessation:Ready to Q uit: Not Asked; Counseling Given: Not Answered Alcohol Use Standard Drinks/Week Comments Not Currently 0 (1 standard drink = 0.6 oz pur e alcohol) AUDIT-C Answer Date Recorded Q1: How often do you have a drink containing alcohol? Never 01/20/2025 Q2: How many drinks containi ng alcohol do you have on a typical day when you are drinking? Patient does not drink Q3: How often do you have si x or more drinks on one occasion? Never 01/20/2025 Comments Unknown Sex and Gender Information Value Date Recorded Sex Assigned at Female 01/26/2025 6:29 AM EDT Legal Sex Female 4:14 PM EDT Gender Identity Not on file Sexual Orientation Not on file Last Filed Vital Signs Vital Sign Reading Time Taken Comments Blood Pressure 136/69 01/26/2025 1:30 PM EDT Pulse 67 01/26/2025 1:30 PM EDT Temperature 36 C (96.8 F) 01/26/2025 1:30 PM EDT Respiratory Rate 16 01/26/2025 1:30 PM EDT Oxygen Saturation 95% 01/26/2025 1:30 PM EDT Inhaled Oxygen Concentration - - Weight 44 kg (97 lb) 01/20/2025 9:38 AM EDT Height 162.6 cm (5' 4 ) 01/20/2025 9:38 AM EDT Body Mass Index 16.65 01/20/2025 9:38 AM EDT Plan of Treatment Health Maintenance Due Date Last Done Comments Hepatitis C Virus Screening 1980 HIV Screening 1991 DTaP/Tdap/Td Vaccines (1 - Tdap) 1997 Hepatitis B Vaccines (1 of 3 - 19+ 3-dose series) 03/05 Pneumococcal Vaccine: Pediat erica (0-5 Years) and At-Risk Patients (6 to 49 Years) (1 of 2 - PCV) 1997 Pap Smear (Ages 21-65) 1999 Mammogram 2018 Colonoscopy 2023 Influenza Vaccine 12/02/2024 COVID-19 Vaccine ( season) 2025 Procedures Procedure Name Priority Date/Time Associated Diagnosis Comments PATHOLOGY REPORT Routine 01/26/2025 9:10 AM EDT ANES INTUBATION Routine 01/26/2025 8:47 AM EDT POCT , URINE (CHARGE) Routine 01/26/2025 8:23 AM EDT MD LAPS TOTAL HYSTERECT 250 GM/< W/RMVL TUBE/OVARY 01/26/2025 8:15 AM EDT Pelvic pain in female Dyspareunia, female TYPE AND SCREEN Routine 01/26/2025 7:17 AM EDT COMPLETE BLOOD COUNT, WITH DIFFERENTIAL Routine 01/24/2025 12:35 PM EDT from Last 3 Months Results * Pathology (01/26/2025 9:10 AM EDT) Report [facility] [id number] CLIA ID [id number] [address] [place] [address] [phone] Surgical Pathology Report PATIENT NAME: JAYLA MADISON [facility] REC NUMBER: [id number] (AGE): 1980 (Age: 44) SPECIMEN NUMBER: [id number] DATE OBTAINED: 01/26/2025 DIAGNOSIS UTERUS CERVIX AND BILATERAL SALPINGO-OOPHORECT ALBERTO: MULTIPLE LEIOMYOMAS (LARGEST 1.1 CM); INACTIVE WITH FOCALLY DISORDERED ENDOMETRIUM; BENIGN ECTO AND ENDOCERVIX; NO EVIDENCE OF MALIGNANCY; BILATERAL BENIGN FALLOPIAN TUBES; BILATERAL BENIGN OVARIES (LEFT UNREMARKABLE, RIGHT WITH FOLLICULAR AND SEROUS CYST). mi/01/30/2025 Electronically Signed Out COLIN [facility]SU MD COMMENT [id number] Clinical Information and History: Pelvic pain, female, dyspareunia, female TRT 0929 TIF 1024 Tissue(s) Submitted: A: UTERUS, CERVIX, BSO Gross Description: Specimen A is received in formalin labeled per the requisition uterus, cervix, BSO and consists of a 130g, hysterectomy specimen with attached bilateral adnexa. The serosa is predominantly mercedes-pink to red smooth and glistening and there is a 0.5 x 0.4 x 0.3 cm subserosal nodule located at the fundus. Orientation is presumed based on the attached adnexa. The uterine body measures 4.7 (superior-inferior ) x 4.5 (cornu-cornu) x 4.4 cm (anterior-posterio r). The cervix measures 3.5 cm in length by 3.5 cm in diameter and displays mercedes-pink smooth glistening ectocervical mucosa with a centrally located 1.1 cm in length slitlike os. The uterus is opened to reveal a triangular in shape endometrial cavity measuring 2.3 cm in width by 4.4cm in length to the lower uterine segment. The endometrium is pink-red, smooth, glistening and measures 0.2 cm in thickness. The myometrium is sectioned through to reveal mercedes-pink smooth to slightly trabecular cut surfaces and there are multiple (greater than five) white, rubbery, homogeneous intramural nodules throughout both the anterior and posterior uterine body ranging in size from 0.2 x 0.2 x 0.2 cm to 1.0 x 0.8 x 0.8 cm. The largest intramural nodule is located within the anterior uterine body. The anterior myometrium measures 2.0 cm in thickness and the posterior myometrium measures 2.4 cm in thickness. The left fallopian tube measures 7.0 cm in length and ranges in diameter from 0.3 to 0.5 cm. There is a smooth-walled pedunculated paratubal cyst at the fimbriated end of the left fallopian tube measuring 1.0 x 0.8 x 0.8 cm with a 2.5 cm length by 0.3 cm in diameter stalk. The cyst is filled with serous watery fluid. The right fallopian tube measures 7.2 cm in length and ranges in diameter from 0.3 to 0.5 cm. The right fallopian tube displays multiple smooth-walled paratubal cyst throughout ranging in size from 0.1 to 0.3 cm in greatest dimension. The remaining serosa on both fallopian tubes is pink-red, smooth, and glistening. The left ovary weighs 5 g and measures 2.6 x 1.6 x 0.7 cm. The left ovary has a mercedes-pink slightly lobulated cortical surface and is serially sectioned to reveal mercedes-pink normal-appearing ovarian stroma and multiple smooth-walled cortical cysts ranging in size from 0.1 to 0.2 cm in greatest dimension. The cyst are filled with red watery material. No excrescences are identified. The right ovary weighs 12 g and measures 3.5 x 2.2 x 1.9 cm and displays a mercedes-pink predominately smooth cortical surface. The ovary is sectioned to reveal a 2.0 x 2.0 x 1.8 cm unilocular cyst filled with serous clear watery fluid. The inner cyst wall is mercedes-pink to red and smooth. The cyst wall averages 0.1 cm in thickness. No excrescences are identified. The remaining ovary displays mercedes-pink smooth cut surfaces. Within the left adnexal soft tissue there is a 0.2 x 0.2 x 0.1 cm mercedes-white rubbery nodule. The remaining adnexal soft tissue is red-pink soft to rubbery with intermixed vasculature. Mainstreaming Facilitator sections are submitted as follows: A1: Left fallopian tube entry level sales representative cross-section to include nodule within the adjacent adnexal soft tissue A2: Left fallopian tube cross-sections, entry level sales representative A3-A4: Left fallopian tube fimbriated end bisected and entirely submitted, to include the paratubal cyst entirely submitted in A3 A5: Left ovary, entry level sales representative sections A6: Right fallopian tube entry level sales representative cross-sections A7: Right fallopian tube fimbriated end bisected and entirely submitted A8-A9: Right ovary, entry level sales representative sections, to include entry level sales representative sections of the cyst A10: Anterior cervix A11: Posterior cervix A12: Anterior endomyometrium, full-thickness, entry level sales representative section to include one of the smaller intramural nodules A13: Anterior endomyometrium, partial-thickness, entry level sales representative A14: Mainstreaming Facilitator sections of the smaller remaining nodules to include a entry level sales representative section of the subserosal nodule A15: Posterior endomyometrium, full-thickness, entry level sales representative section to include one of the smaller intramural nodules A16: Posterior endomyometrium, partial-thickness, entry level sales representative [facility] Tissue Specimen from uterus / Unknown 01/26/2025 9:10 AM EDT Bar Luis MD PATHOLOGY/CYTOLOGY ORDERABLE S Final Result [facility] See Below * ANES INTUBATION (01/26/2025 8:47 AM EDT) Narrative Dinorah Burciaga CRNA - 01/26/2025 8:47 AM EDT Dinorah Burciaga CRNA 01/26/2025 8:49 AM Anesthesia Procedure Note - Elective intubation Patient Name: Jayla Madison : 1980 Patient location: OR Procedure indications: airway protection Procedure diagnosis: Anesthesia Performed by: Resident/GIG TENDER MD Dinorah Raza CRNA Chart Verification Airway: airway not difficult Preanesthetic Checklist monitors and equipment checked. Patient's pre-procedure mental status: awake The patient was sedated prior to procedure. Current level of sedation: general anesthesia Airway not difficult - NPO status: > 8 hours Procedure Details Intubation route: oral Intubation method: direct laryngoscopy Mac 3 Number of attempts: 1 Patient status for intubation: paralyzed, sedated and unresponsive Patient position: supine Preoxygenation: BVM Quality of BVM: easy and 1 person Tube size: 7.0 mm Tube: standard - cuffed and cuff inflated Cricoid pressure not applied or not required Cord visualization: Grade IIa Placement confirmation method: chest rise and ETCO2 monitor Breath sounds: equal bilaterally ETT to lip: 21 cm Dentition: same as baseline Complications: no complications Desean Sunshine MD MD ANESTHESIA Final Result * POCT Urine test (01/26/2025 8:23 AM EDT) Preg Test, Ur Negative Negative Lot Number [id number] Lead Ruby On Rails Developer Pass Pass Urine 01/26/2025 8:23 AM EDT Bar Luis MD POINT OF CARE TEST ORDERABLE S Final Result * Type and Screen (01/26/2025 7:17 AM EDT) ABO/Rh A POSITIVE 01/26/2025 8:35 AM EDT [facility] Antibody Screen NEGATIVE 01/26/2025 8:35 AM EDT [facility] Specimen Expiration 01/29/2025 01/26/2025 8:35 AM EDT [facility] Blood Bank Comment Second Sample needed for Blood Transfusion 01/26/2025 8:35 AM EDT [facility] Blood Blood specimen / Unknown 01/26/2025 7:17 AM EDT 01/26/2025 7:38 AM EDT Bar Luis MD BLOOD BANK TEST ORDERABLES F inal Result [address] [address], [address] [id number] * (ABNORMAL) Complete Blood Count, with Differential (01/24/2025 12:35 PM EDT) White Blood Cell Count 8.1 3.8 - 10.8 Thousand/ uL [facility] Red Blood Cell Count 4.26 3.80 - 5.10 Million/u L [facility] Hemoglobin 13.2 11.7 - 15.5 g/dL [facility] Hematocrit 41.9 35.0 - 45.0 % [facility] MCV 98.4 80.0 - 100.0 fL [facility] MCH 31.0 27.0 - 33.0 pg [facility] MCHC 31.5(L) 32.0 - 36.0 g/dL [facility] Comment: For adults, a slight decrease in the calculated MCHC value (in the range of 30 to 32 g/dL) is most likely not clinically significant; however, it should be interpreted with caution in correlation with other red cell parameters and the patient's clinical condition. RDW 12.7 11.0 - 15.0 % [facility] Platelet Count 285 140 - 400 Thousand/ uL [facility] MPV 10.6 7.5 - 12.5 fL [facility] Abs Neutrophils Auto 3,896 1,500 - 7,800 cells/uL [facility] Abs Lymphocytes Auto 3,434 850 - 3,900 cells/uL [facility] Abs Monocytes Auto 551 200 - 950 cells/uL [facility] Abs Eosinophils Auto 170 15 - 500 cells/uL [facility] Abs Basophils Auto 49 0 - 200 cells/uL [facility] Neutrophils Auto 48.1 % [facility] Lymphocytes Auto 42.4 % [facility] Monocytes Auto 6.8 % [facility] Eosinophils Auto 2.1 % [facility] Basophils Auto 0.6 % [facility] 01/24/2025 12:3 5 PM EDT 01/24/2025 12:37 PM EDT Narrative [facility] - 01/25/2025 5:10 AM EDT FASTING:NO FASTING: NO us Bar Luis MD LAB BLOOD ORDERABLES Final R esult [facility] [address] [facility] [address], [place] [address] from Last 3 Months Insurance [facility] PPO Advance Directives * Full Code (Latest Code Status on File) Date Activated Date Inactivated Comments 01/26/2025 9:50 AM * Full Code Date Activated Date Inactivated Comments 01/26/2025 6:44 AM 01/26/2025 9:50 AM Question Answer Comments Decision Thoroughly Discussed with: Patient Care Teams Legislative Advocate Relationship Specialty Start Date End Date Evan Yousif MD [address] [place] [id number] PCP - General 01/26/25
--- OUTSIDE RECORDS SUMMARY | 2025-03-28 17:26 | XMS_ITS ---
Author Name [facility] Organization Unknown History of Medication Use Medication Directions Dispensed Refills Start Date End Date Stat us Clenpiq 10 mg-3.5 gram-12 gram/175 mL oral solution TAKE 175 ML BY MOUTH 2 TIMES A DAY. 02/08/2025 completed Incassia 0.35 mg tablet TAKE 1 TABLET BY MOUTH EVERY DAY 02/08/2025 completed meloxicam 15 mg tablet TAKE 1 TABLET BY MOUTH EVERY DAY NEEDED FOR PAIN 02/08/2025 completed celecoxib 200 mg capsule TAKE 1 CAPSULE BY MOUTH ONCE A DAY NEEDED FOR PAIN active ibuprofen 600 mg tablet TAKE 1 TABLET 3 TIMES A DAY BY ORAL ROUTE NEEDED. active sertraline 50 mg tablet TAKE 1 TABLET BY MOUTH EVERY DAY active celeCOXIB (CeleBREX) 100 MG capsule Take 1 capsule (100 mg total) by mouth as needed for mild pain. active sertraline (ZOLOFT) 50 MG tablet Take 1 tablet (50 mg total) by mouth every morning. active Allergies Allergen Reaction Severity Comment Documented Date Source Statu s AMOXICILLIN GI INTOLERANCE/NAUSEA/VOMITIN G 01/20/2025 [facility] active Problems Problem Status Onset Date Problem Type Date of Resoluti on Source Pelvic pain in female active 2025-01-23 ProblemAct [facility] Adenomyosis of the uterus active 2025-01-23 ProblemAct [facility] Secondary dysmenorrhea active 2025-01-23 ProblemAct [facility] Constipation active 2025-02-08 ProblemAct [facility] Disorder of stomach active 2025-02-08 ProblemAct [facility] Lower abdominal pain active 2025-02-08 ProblemAct [facility] Encounters Encounter Type Encounter Reason Primary Diagnosis Location Date Ambulatory [facility] 12/2024 Ambulatory [facility] 12/2024 Ambulatory [facility] 12/2024 Ambulatory [facility] 12/2024 Ambulatory Pelvic and perineal pain Pelvic and perineal pain [facility] 02/06/2025 Ambulatory [facility] 1006/2024 Ambulatory Pelvic and perineal pain Pelvic and perineal pain [facility] 01/26/2025 Ambulatory no current diagnosis no current diagnosis [facility] 01/17/2025 Care Team Organization Name Specialty Phone Email Start Date End Da te [facility] 02/03/2025 [facility] 01/26/2025 02/26/2025 [facility] Evan Yousif Primary [facility] 01/26/2025 [facility] 01/17/2025 [facility] 01/17/2025 [facility] 01/12/2025
--- OUTSIDE RECORDS SUMMARY | 2025-03-28 17:26 | XMS_ITS | Continuity of Care Document ---
Author Organization [place] - [facility] Address [address] [place] [address] Assessment Encounter Date Assessment Date Assessment LastModified by Organization Details LastModified Time 02/08/2025 02/08/2025 1. Lower abdominal pain, constipation- See HPI for full details. Plan: -Since end of December patient has been having some lower abdominal pressure and pain, made worse with vaginal intercourse. She saw her [facility] provider and ended up undergoing a hysterectomy and bilateral oophorectomy for her history of ovarian cysts and fibroids. Despite having the surgery done, she feels the same. She is very frustrated as she cannot have intercourse and does not have any answers. She had a CT scan done recently at the hospital which did show a moderate amount of stool buildup in the colon. She does admit to having constipation and only moving her bowels 1-2 times per week with significant straining. She is not currently on a bowel regimen. She did just have a colonoscopy earlier this year with another GI group which showed a large polyp but was otherwise normal. -Overall, I explained to the patient that pain with vaginal intercourse seems to be a gynecological issue and not GI related. I recommended she continue to follow closely with her OBGYN provider. It is reassuring that she had a colonoscopy under a year ago. Her recent CT scan did show a moderate amount of stool buildup and she does have a history of chronic constipation for which I explained to the patient can cause abdominal pain and possibly a sensation of pressure that she is experiencing. I recommended she do a bowel flush with a bottle of magnesium citrate and then start on a bowel regimen of MiraLAX 1-2 capfuls daily. Patient was quite upset as she does not think her constipation is the issue. I explained to the patient that we will start with a bowel flush and bowel regimen and see how she does and go from there. 2. Incidental finding of gastric wall thickening on CT scan- See HPI for full details. Plan: -Patient just recently had a CT scan showing an incidental finding of gastric wall thickening. She denies any upper GI complaints and has never had a prior EGD before. Especially with her smoking HX I explained to the patient that she should have direct visualization her stomach with an EGD, she is agreeable to proceed. Procedure will be done over at the outpatient [place] [facility]. -The risks of the EGD such as bleeding, infection, perforation and adverse effects of sedation were discussed in detail with the patient. All questions were answered. [email or web address] Not available 02/08/2025 12:28:56 Plan of Treatment Reminders Order Date Submit Date Provider Last Modified By Organization Details Last Modified Time Details Appointments None recorded. Lab None recorded. Referral None recorded. Procedures upper endoscopy procedure (EGD) (PROC) 2024 025 [email or web address] Not available 13:06:20 Surgeries None recorded. Imaging None recorded. Medication Orders None recorded. Patient TargetsNo targets recorded. Patient InstructionsNo instructions recorded. Reason for Referral None Reported. Problems Name Problem SNOMED Code Status Onset Date Resolution Date Notes Provider Name and Address Organization Details Recorded Time Disorder of stomach 74651144 Active 2024 ELISE Chacon [address] [place], [address], [place] [facility] 11:29:56 Constipation 75163293 Active 2024 ELISE Chacon [address] [place], [address] [facility] 11:34:53 Lower abdominal pain 57123231 Active 2024 ELISE Chacon [address] [place], [address] [facility] 11:35:09 Imaging of gastrointest inal tract abnormal 183520985 Active 2024 Armaan gibson [facility] 07:01:32 Problem Notes None recorded. Medical Equipment None Reported. Medications Name Sig Start Date Stop Date Status Note LastModified by Organization Details LastModified Time celecoxib 200 mg capsule TAKE 1 CAPSULE BY MOUTH ONCE A DAY NEEDED FOR PAIN active Not Available Not Available No t Available meloxicam 15 mg tablet TAKE 1 TABLET BY MOUTH EVERY DAY NEEDED FOR PAIN 02/08 completed Not Available Not Available Not Available ibuprofen 600 mg tablet TAKE 1 TABLET 3 TIMES A DAY BY ORAL ROUTE NEEDED. active Not Available Not Available No t Available sertraline 50 mg tablet TAKE 1 TABLET BY MOUTH EVERY DAY active Not Available Not Available No t Available Incassia 0.35 mg tablet TAKE 1 TABLET BY MOUTH EVERY DAY 02/08 completed Not Available Not Available Not Available Clenpiq 10 mg-3.5 gram-12 gram/175 mL oral solution TAKE 175 ML BY MOUTH 2 TIMES A DAY. 02/08 completed Not Available Not Available Not Available Vitals Date Recorded Body height Body mass index (BMI) Body weight Oxygen saturation Heart rate Provider Name and Address Organization Details Last Updated DateTime 02/08/2025 162.56 cm 16.6 kg/m2 98446.46 g 97 % 87 /min YESENIA WOODS [facility] 11:02:38 Social History None recorded. Functional Status None recorded. Mental Status None recorded. Family History Nothing Reported. Medical History No medical history recorded. Gynecological HistoryNo gynecological history recorded. Obstetrics History GPAL:G 0 P 0 0 0 0 Past Encounters Encounter ID Performer Location Encounter Start Date Encounter Closed Date Diagnosis/Indication Diagnosis SNOMED-CT Code Diagnosis ICD10 Code Diagnosis IMO Codes Diagnosis Note [id number] ELISE Chacon [facility] [address] [place] [address] 02/08/2025 10:50:33 02/08/2025 11:35:10 Disorder of stomach 96507756 K31.89 9657298 Constipation 76859756 K5 9.00 875716806 Lower abdominal pain 545 64663 R10.30 837361 Health Concerns Section Related Observation LastModified by Organization Detai ls LastModified Time None Recorded Concern Status LastModified by Organization Details LastModified Time None Recorded Payers Encounter Date Sequence Insurance Name Policy Number Policy Kwong Covered Member ID Kwong Member ID Guarantor Name 02/08/2025 1 [place] [id number] Oswaldo Singh [id number] IVAN Jayla Singh Notes Date Note Type Note Provider Name and Address Organization Details Recorded Time 02/08/2025 text/html Chief complaint:Abdominal pain HPI:Jayla Singh 44 YO F with a PMH of anxiety with agoraphobia and panic disorder + colon polyps 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 Patient could not be seen by her other GI group until Jun 2025 so she is coming to see us. Patient had her 1st colonoscopy in Jun [address] Fregoso (GI). 1 very large (16 mm by 5 mm) SSL seen, they wanted her to come back in 1 year, to be due in Jun 2025. Patient states that starting at the end of December she would have vaginal intercourse and feel a sharp lower abdominal pain. She then ended up going to the ER at [facility] for this and had a few ultrasounds and a CT scan. Ultrasounds revealed fibroids and a cyst. I do not have physical copy of the CT scan however she did pull up results on her phone in which it showed gastric wall thickening consistent with gastritis, no obstruction of the bowel, no appendicitis, no enlarged lymph nodes, no colitis or diverticulitis and a moderate amount of stool buildup. Patient denies any heartburn whatsoever. No nausea, vomiting, fevers or dysphagia. No unintentional weight loss. She does admit to a longstanding history of chronic constipation. Only has a BM a few times per week and does strain a lot. She does not take anything for her bowel regimen. No blood in the stool. Patient thought that going for her hysterectomy and bilateral oophorectomy would help however she continues with the same issues despite having the surgery done. Symptoms are mostly of chronic lower abdominal pressure. She is very tearful as she cannot currently have intercourse. She smokes 1/2 ppd for 20+ years. No alcohol use. No illicit drug use. Occasionally she smokes marijuana, few times weekly. No regular NSAID use. Non-GI HX:In Jan 2025 she underwent a hysterectomy + bilateral oopherectomy. Path showed: MULTIPLE LEIOMYOMAS (LARGEST 1.1 CM); INACTIVE WITH FOCALLY DISORDERED ENDOMETRIUM; BENIGN ECTO AND ENDOCERVIX; NO EVIDENCE OF MALIGNANCY; BILATERAL BENIGN FALLOPIAN TUBES; BILATERAL BENIGN OVARIES (LEFT UNREMARKABLE, RIGHT WITH FOLLICULAR AND SEROUS CYST). ELISE Chacon [address], [place], [address], [place] [facility] 02/08/2025 12:30:32 OBGyn Episode No OBEpisode recorded.
--- OUTSIDE RECORDS SUMMARY | 2025-03-28 17:26 | XMS_ITS | Continuity of Care Document ---
Author Organization [place] - [facility] Address [address] [place] [address] Care Team Providers Care Escalator Mechanic Name Role Phone BRANDI PINEDA Primary Care [...] for RTLH/BSO [email or web address] Not available 01/17/2025 16:05:54 Plan of Treatment Reminders Order Date Submit [...] and Address Organization Details Recorded Time Arthritis 5873565 Active 025 [facility] 5 13:53:44 Mixed anxiety and depressive disorder 423094396 Active 025 [facility] 5 13:53:59 History of migraine 157738125 Active 025 [facility] 5 13:54:15 Problem Notes None recorded. Procedures Surgical History Date Name Laterality Status Provider Name and Address Organization Details Recorded Time 01/27/20 Hysterectomy total with removal cervix and bso completed BAR SINGH MD [address] [place] [address], [id number] 01/31/2025 09:45:56 Imaging Results None recorded. Procedure [...] Address Organization Details Last Updated DateTime 01/17/2025 31098.46 g 16.6 kg/m2 162.56 cm 110/78 mm[Hg] [facility] [place] [facility] 01/17/2025 13:51:24 Social History Question Answer Notes LastModified by Organization D etails LastModified Time Has Tobacco Cessation Counseling Been Provided? Yes [email or web address] Information not available 01/17/2025 Sex: Unknown Functional Status Question Answer Note LastModified by Organization D etails LastModified Time What is your level of alcohol consumption? None [facility] Information not available 01/17/2025 Mental Status None recorded. Family History Relationship Description Onset Age of this Age Resolved Age Notes LastModified by Organization Details LastModified Time Father Malignant neoplasm of prostate [email or web address] Not available 2024 13:55:00 Father Diabetes mellitus [email or web address] Not available 2024 13:55:19 Mother Diabetes mellitus [email or web address] Not available 2024 13:55:19 Medical History No medical history recorded. Gynecological HistoryNo gynecological history recorded. Obstetrics History GPAL:G 0 P 0 0 0 0 Past Encounters Encounter ID Performer Location Encounter Start Date Encounter Closed Date Diagnosis/Indication Diagnosis SNOMED-CT Code Diagnosis ICD10 Code Diagnosis IMO Codes Diagnosis Note [id number] BAR SINGH MD [facility] [address] [place] [address] 01/17/2025 13:10:13 01/18/2025 09:21:34 Pre-surgery evaluation 993393519 Z01.818 Procedure not done 54010 7000 Z53.20 [id number] Health Concerns Section Related Observation LastModified by Organization Detai ls LastModified Time None Recorded Concern Status LastModified by Organization Details LastModified Time None Recorded Payers Encounter Date Sequence Insurance Name Policy Number Policy Kwong Covered Member ID Kwong Member ID Guarantor Name 01/17/2025 1 [place] [id number] Oswaldo Singh [id number] IVAN Singh Notes Date Note Type Note Provider [...] postop reviewed: questions answered BAR SINGH MD [address] [place] [address], [address], [place], [address], [place] [facility] 01/17/2025 16:06:34 OBGyn Episode No OBEpisode recorded.
--- OUTSIDE RECORDS SUMMARY | 2025-03-28 17:26 | XMS_ITS | Clinical Summary ---
Author Organization [facility] [address] Address [address] [place] [address] Phone Care Team Providers Care Production Clerks Supervisor Name Role Phone Meet Yousif MD Primary Care Provider [phone] Allergies Active Allergy Reactions Criticality Noted Date Comments Amoxicillin Nausea And Vomiting 09/28/2013 Medications celecoxib (CeleBREX) 200 mg capsule Take 1 capsule (200 mg total) by mouth 1 (one) time each day if needed. Active GABAPENTIN ORAL Take by mouth 1 (one) time each day. Active sertraline (ZOLOFT) 50 mg tabletIndicatio ns:Anxiety,Agor aphobia with panic disorder Take 1 tablet (50 mg total) by mouth 1 (one) time each day. 90 each 1 5 08/27/19 26 Active norethindrone (SUN,SHARRI,Coy CARRASCO,MICRONOR ) 0.35 mg tablet Take 1 tablet (0.35 mg total) by mouth 1 (one) time each day. 02/28/20 25 Discontinue d(Discontin ued by another clinician) sertraline (ZOLOFT) 50 mg tabletIndicatio ns:Anxiety,Agor aphobia with panic disorder TAKE 1 TABLET BY MOUTH EVERY DAY 90 tablet 5 02/28/20 25 Discontinue d(Reorder) Active Problems Problem Noted Date Diagnosed Date [...] sclerosus et atrophicus of the vulva 02/01 Encounters Date Type Department Care Team Description 02/27/2025 1:00 PM EDT Office Visit Adult Medicine [address] [address] Amanda Sauceda NP Chronic pain of left knee (Primary Dx); Anxiety; Agoraphobia with panic disorder; Arthralgia, unspecified joint 02/02/2025 Telephone Gastroenterology - [address] [facility] [address] [place] [address] Faye Reyes PA from Last 3 Months Immunizations Immunization Administration Dates Next Due Influenza Quadravalent, MDCK , 0.5ml, preservative free (Flucelvax) 6mo and older 01/20/2020,03/22/2019,02/22/2018 Influenza trivalent, with pr eservative (Fluzone; Afluria) 6mo and older 03/11/2011,02/15/2008,03/17/2006 PPD Test 08/02/2013 Td Tetanus diptheria (Tdvax) 7yo and older 02/01 Tdap Tetanus diptheria acell ular pertussis (Boostrix; Adacel) 7yo and older 08/08/2008 Surgical History Surgery Date Site/Laterality Comments VAGINAL DELIVERY PROCEDURE: [place] VAGINAL DELIVERY ONLY; COMMENT: first delivery had deepthi delivered with feet on bed, no problems. TONSILLECTOMY ADENOIDECTOMY, BILATERAL MYRINGOTOMY AND TUBES PROCEDURE: [place] TONSILLECTOMY & ADENOIDECTOMY <AGE 12 CARPAL TUNNEL [...] Safety Answer Date Record ed Physical Abuse Unrecognized value 06/20/2024 Verbal Abuse Unrecognized value 06/20/2024 Comments No Sex and Gender Information Value Date Recorded Sex Assigned at Female 06/20/2024 6:52 AM EST Legal Sex Female 4:39 AM EST Gender Identity Female 06/20/2024 6:52 AM EST Sexual Orientation Straight 06/20/2024 6: 52 AM EST Obstetrics History Last Filed Vital Signs Vital Sign Reading Time Taken Comments Blood Pressure 125/73 02/27/2025 1:17 PM EDT Pulse 62 02/27/2025 1:17 PM EDT Temperature 36.2 C (97.2 F) 02/27/2025 1:17 PM EDT Respiratory Rate 12 06/20/2024 9:07 AM EST Oxygen Saturation 99% 06/20/2024 9:07 AM EST Inhaled Oxygen Concentration - - Weight 45.4 kg (100 lb) 02/27/2025 1:17 PM EDT Height 162.6 cm (5' 4 ) 02/27/2025 1:17 PM EDT Body Mass Index 17.16 02/27/2025 1:17 PM EDT Plan of Treatment Upcoming Encounters Date Type Department Care Team (Late st Contact Info) Description 08/28/2025 11:00 AM EDT Office Visit Adult Medicine - [place] [address] [place] [phone] Niesha Skinner PA [address] [place] [id number] Health Maintenance Due Date Last Done Comments Hepatitis B Vaccines (1 of 3 - 19+ 3-dose series) 1997 Pneumococcal Vaccine: Pediatrics (0 to 5 Years) and At-Risk Patients (6 to 49 Years) (1 of 2 - PCV) 1997 Hepatitis C Screening 04/06/2022 Social Influencers of Health Screening 04/06/2022 Depression Screening 05/04/2024 COVID-19 Vaccine ( - season) 2025 Influenza Vaccine (#1) 2025 , 01/20/2020, 03/22/2019, Additional history exists Breast Cancer Screening 07/29/2025 07/30/2023 Cervical Cancer Screening: Pap Smear 12/06/2026 12/07/2023, 03/14/2020 Cholesterol Screening (Lipid Panel) 03/17/2029 03/17/2024, 01/20/2020 DTaP,Tdap,and Td Vaccines (3 - Td or Tdap) 02/01/2031 02/01/2021, 08/08/2008 Colorectal Cancer Screening: Colonoscopy 06/20/2034 06/20/2024 RSV Immunization Adult Patients (1 - 1-dose 75+ series) 2053 HIV Screening Completed 08/28/2003 HIB Vaccines Aged [...] Procedure Name Priority Date/Time Associated Diagnosis Comments EXTERNAL CLINICAL LAB 03/10/2025 COLONOSCOPY Routine 06/20/2024 8:46 AM EST Colon cancer screening LIPID PANEL WITH REFLEX TO DIRECT LDL Routine 03/17/2024 11:33 AM EST Screening for endocrine, metabolic, and immunity disorder PAP SMEAR Routine 03/14/2020 HIV SCREENING Routine 08/28/2003 from Last 3 Months or Most Recently Relevant to Health Maintenance Results * External clinical lab (03/10/2025) us Provider [facility] BLOOD ORDERABLES Fin al Result * COLONOSCOPY Anesthesia - MAC; [facility] ENDOSCOPY (06/20/2024 8:46 AM EST) Anatomical Region [...] for surveillance. Narrative 06/20/2024 8:48 AM EST [facility] Patient Name: Jayla Madison Procedure [...] any diverticulosis. Procedure Code(s): --- Professional --- 41605, Colonoscopy, flexible; with removal of tumor(s), polyp(s), or other lesion(s) by snare technique Diagnosis Code(s): --- Professional --- Z12.11, Encounter for screening for malignant neoplasm of colon D12.2, Benign neoplasm of ascending colon CPT copyright 2020 [employer]. All rights reserved. The codes documented in this report are preliminary and upon rn staff review may be revised to meet current compliance requirements. MD Lamont Lagos MD 06/20/2024 8:48:43 AM This report has been signed electronically.Lamont Fregoso MD Number of Addenda: 0 Note Initiated On: 06/20/2024 8:25 AM Scope In: Scope Out: Endoscopy Department at [facility] - [address] [place] [phone] Procedure Note Lamont Fregoso MD - 06/20/2024 [facility] GI Patient Name: Jayla Madison Procedure [...] any diverticulosis. Procedure Code(s): --- Professional --- 25291, Colonoscopy, flexible; with removal of tumor(s), polyp(s), or other lesion(s) by snare technique Diagnosis Code(s): --- Professional --- Z12.11, Encounter for screening for malignantneoplasm of colon D12.2, Benign neoplasm of ascending colon CPT copyright 2020 [employer]. All rights reserved. The codes documented in this report are preliminary and upon rn staff reviewmay be revised to meet current compliance requirements. MD Lamont Lagos MD 06/20/2024 8:48:43 AM This report has been signed electronically.Lamont Fregoso MD Number of Addenda: 0 Note Initiated On: 06/20/2024 8:25 AM Scope In: Scope Out: Endoscopy Department at [facility] - [address] [place] [phone] IMPRESSION: - One 16 mm polyp in [...] mg/dL LAB CHEMISTRY METHOD 03/17/2024 3:58 PM EST [facility] Triglycerides 82 0 - 150 mg/dL LAB CHEMISTRY METHOD 03/17/2024 3:58 PM [facility] HDL 56 >=40 mg/dL LAB CHEMISTRY METHOD 03/17/2024 3:58 PM [facility] LDL Calculated 88 0 - 100 mg/dL LAB CHEMISTRY METHOD 03/17/2024 3:58 PM [facility] VLDL Cholesterol Rey 16.4 mg/dL LAB CHEMISTRY METHOD 03/17/2024 3:58 PM [facility] Non HDL Chol. (LDL+VLDL) 104 <145 mg/dL LAB CHEMISTRY METHOD 03/17/2024 3:58 PM [facility] Chol/HDL Ratio 2.9 0.0 - 4.4 LAB CHEMISTRY METHOD 03/17/2024 3:58 PM [facility] Blood Venous blood specimen / Unknown Venipuncture / Unknown 03/17/2024 11:33 AM EST 03/17/2024 11:33 AM EST [facility] LAB BLOOD ORDERABLES Final Result [facility] [address] [place] [address], [place] [phone] * Hm Pap Smear (03/14/2020) HM Pap smear No interpretation , abstracted us Historical Provider HEALTH MAINTENANCE Final Result * HIV Screening (08/28/2003) HIV Screening Abstracted us Historical Provider HEALTH MAINTENANCE Final Result from Last 3 Months or Most Recently Relevant to Health Maintenance Insurance [place]) Care Teams Production Clerks Supervisor Relationship Specialty Start Date End Date Meet Yousif MD [address] [place] [id number] PCP - General 05/07/99
--- OUTSIDE RECORDS SUMMARY | 2025-03-28 17:26 | XMS_ITS | Data Portability ---
Author Organization [place] [facility] Tyrel lama, [facility] Address [address] [place] [address] Assessment Encounter Date Assessment Date Assessment LastModified by Organization Details LastModified Time 02/08/2025 02/08/2025 1. Lower abdominal pain, constipation- See HPI for full details. Plan: -Since end of December patient has been having some lower abdominal pressure and pain, made worse with vaginal intercourse. She saw her [facility] provider and ended up undergoing a hysterectomy [...] will be done over at the outpatient [facility]. -The risks of the EGD [...] upper endoscopy procedure (EGD) (PROC) 2024 025 [id number] Not available 13:06:20 Surgeries None recorded. Imaging None recorded. Medication Orders None recorded. Patient TargetsNo targets recorded. Patient InstructionsNo instructions recorded. Reason for Referral None Reported. Results Created Date Observation Date Name Description Value Unit Range Abnormal Flag Note LastModifiedBy Organization Detail LastModifiedTime 03/02/20 25 03/02/2025 GI PATHO LOGY SURGI KEMAL surgical SEE DETAIL S normal FINAL DIAGN OSIS A. Duode num, biops y: Chron ic pepti c duode nitis . B. Stoma ch, biops y: Mild chron ic gastr itis. No Helic obact er pylor i or intes tinal metap lasia is seen. C. Esoph mahi, dista l, biops y: Fragm ents of squam ous mucos a with mild chron ic infla mmati on. Eosin ophil s do not appea r incre ased. D. Esoph mahi, mid, biops y: Fragm ents of squam ous mucos a with mild chron ic infla mmati on. Eosin ophil s do not appea r incre ased. E. Esoph mahi, proxi mal, biops y: Fragm ents of squam ous mucos a with mild chron ic infla mmati on. Eosin ophil s do not appea r incre ased. Separ ate fragm ent of gastr ic mucos a. Aylin abbott M.D. Manav davida lea: 03/06 15:20 Clini kemal Histo ry Abnor mal CT of the GI tract Micro scopi c Descr iptio n A. Secti ons revea l fragm ents of small bowel mucos a. Mild villo us blunt ing is noted . An incre ase in intra epith elial lymph ocyte s is not seen. Mild chron ic infla mmati on and Brunn er gland hyper plasi a are noted withi n the modest[place] a propr ia. Gastr ic metap lasia is seen on AB/PA S speci al stain . The findi ngs are consi stent with chron ic pepti c duode nitis . B. Secti ons revea l fragm ents of antra l and oxynt ic-ty pe gastr ic mucos a with mild chron ic infla mmati on and fibro sis. There are assoc iated react nesha mucos al natahn es with mild foveo lar hyper plasi a seen. No intes tinal metap lasia is seen on AB/PA S speci al stain . No Helic obact er pylor i is ident ified on the Giems a speci al stain . C. Secti ons revea l fragm ents of squam ous mucos a with mild chron ic infla mmati on. Eosin ophil s do not appea r incre ased. No funga l organ isms are ident ified on AB/PA S speci al stain . No viral inclu sions are seen. D. Secti ons revea l fragm ents of squam ous mucos a with mild chron ic infla mmati on. Eosin ophil s do not appea r incre ased. No funga l organ isms are ident ified on AB/PA S speci al stain . No viral inclu sions are seen. E. Secti ons revea l fragm ents of squam ous mucos a with mild chron ic infla mmati on. Eosin ophil s do not appea r incre ased. No funga l organ isms are ident ified on AB/PA S speci al stain . No viral inclu sions are seen. There is a separ ate fragm ent of gastr ic mucos a. The diffe renti al diagn osis would inclu de an inlet patch versu s a biops y fragm ent from the stoma ch. Clini kemal corre latio n is recom deepa d. Macro scopi c Descr iptio n A. Recei hernan in forma je are multi ple mercedes 1-3 mm soft tissu e fragm ents, total ly submi tted in A1. B. Recei hernan in forma je are multi ple mercedes 1-6 mm soft tissu e fragm ents, total ly submi tted in B1. C. Recei hernan in forma je are multi ple mercedes 1-4 mm soft tissu e fragm ents, total ly submi tted in C1. D. Recei hernan in forma je are multi ple mercedes 1-3 mm soft tissu e fragm ents, total ly submi tted in D1. E. Recei hernan in forma je are multi ple mercedes 1-3 mm soft tissu e fragm ents, total ly submi tted in E1. (AT) Speci al studi es order ed and perfo rmed: AB/PA S speci al stain s on A-E; giems a speci al stain on B. Unles s other o[place]nell state d, all tissu e is forma je-f ixed and paraf fin-e mbedd ed. Gross ing and techn ical histo logy work perfo rmed at [facility] ([address], [address] , [place] [address] , Ph: [phone]; CLIA #[id number]; CLAB 1133) . All immun ostai ns and profe jayon al patho logy servi dayne perfo rmed at [facility] dex Hugo [facility]ticu [facility]o log[facility] ([facility], [address], [place] [address] ; Ph: [phone]; CLIA #[id number]; [place] HP-03 61). Note: Some or all of the tests utili zed in this case may be labor atory devel oped tests (LDT' s) and may use class I michaelle te speci fic reage nts (ASR) . These tests were devel oped for clini kemal purpo ses and their perfo rmanc e iain cteri stics deter mined by [facility] at[facility] es on tissu e fixed in 10% neutr al buffe red forma je. Other fixat ariel have not been valid ated, and there fore resul ts on tissu e with such fixat ion shoul d be inter prete d with cauti on and in the clini kemal victorina xt. [facility] Labor atori es are quali fied under the CLIA 1987 docum ents to provi de high- compl exity clini kemal labor atory testi ng. All contr ols are revie wed and deeme d appro priat e. Not Available [facility] [address] [facility] [address], [place], [address] 03/06/2025 15:23:16 Result Notes None recorded. Problems Name Problem SNOMED Code Status Onset Date Resolution Date Notes Provider Name and Address Organization Details Recorded Time Disorder of stomach 17258279 Active 2024 ELISE Chacon [address] [place], [address], [place] [facility] 11:29:56 Constipation 58764497 Active 2024 ELISE Chacon [address] [place], [address], [place] [facility] 11:34:53 Lower abdominal pain 10247342 Active 2024 ELISE Chacon [address] [place], [address] [facility] 11:35:09 Imaging of gastrointest inal tract abnormal 685297179 Active 2024 Armaan gibson, [facility] 07:01:32 Problem Notes None recorded. Medical [...] Updated DateTime 02/08/2025 162.56 cm 16.6 kg/m2 35871.46 g 97 % 87 /min YESENIA WOODS [facility] 11:02:38 Social History None recorded. Functional Status None recorded. Mental Status None recorded. Family History Nothing Reported. Medical History No medical history recorded. Gynecological HistoryNo gynecological history recorded. Obstetrics History GPAL:G 0 P 0 0 0 0 Past Encounters Encounter ID Performer Location Encounter Start Date Encounter Closed Date Diagnosis/Indication Diagnosis SNOMED-CT Code Diagnosis ICD10 Code Diagnosis IMO Codes Diagnosis Note [id number] ELISE Chacon [facility] [address] [facility] [address] [place] [address] 02/08/2025 10:50:33 02/08/2025 11:35:10 Disorder of stomach 17362446 K31.89 6045182 Constipation 23593428 K5 9.00 381471622 Lower abdominal pain 545 03329 R10.30 804792 Health Concerns Section Related Observation LastModified by Organization Detai ls LastModified Time None Recorded Concern Status LastModified by Organization Details LastModified Time None Recorded Advance Directives Directive None Recorded Payers Insurance Date Sequence Insurance Name Policy Number Policy Kwong Covered Member ID Kwong Member ID Guarantor Name 02/27/2025 1 [place] [id number] Oswaldo Singh [id number] IVAN Jayla Singh Notes Date Note Type Note Provider Name and Address Organization Details Recorded Time 02/08/2025 text/html Chief complaint:Abdominal pain HPI:Jayla Singh 44 YO F with a PMH of anxiety with agoraphobia and panic disorder + colon polyps 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 Patient could [...] FOLLICULAR AND SEROUS CYST). ELISE Chacon [address] [place], [address], [place] [facility] 02/08/2025 12:30:32 OBGyn Episode No OBEpisode recorded.
--- OUTSIDE RECORDS SUMMARY | 2025-03-28 17:26 | XMS_ITS | Data Portability ---
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 Plan of Treatment Reminders Order Date Submit Date Provider Last Modified By Organization Details Last Modified Time Details Appointments None recorded. Lab test, urine 2024 025 [email or web address] 1 In-Office Order, Internal Use Only DO Not Attach Compendium DO Not Attach Compendium, Do Not Delete/merge, [id number] 5 14:19:47 beta-HCG, qualitativ e, serum or plasma 2024 025 RAUL [facility], [address], [place], [address], 5 08:07:42 cytology report, thin prep, smear or scraping, cervical or vaginal 2024 025 RAUL [facility] (Centralized Electronic Ordering - All Locations), Patient Can Go To The Location Of Their Choice, [id number] 5 14:16:10 hemoglobin , gastrointe stinal, stool 2024 025 [email or web address] 1 In-Office Order, Internal Use Only DO Not Attach Compendium DO Not Attach Compendium, Do Not Delete/merge, [id number] 5 11:33:54 pap, LB + reflex to HR HPV if ASC-U 2023 [facility] [email or web address] (Centralized Electronic Ordering - All Locations), Patient Can Go To The Location Of Their Choice, [id number] 4 07:51:42 wet mount, vaginal 2023 024 [email or web address] 1 In-Office Order, Internal Use Only DO Not Attach Compendium DO Not Attach Compendium, Do Not Delete/merge, [id number] 4 09:38:23 wet mount, vaginal 2023 024 [email or web address] 1 In-Office Order, Internal Use Only DO Not Attach Compendium DO Not Attach Compendium, Do Not Delete/merge, [id number] 4 12:43:27 test, urine 2023 024 [email or web address] 1 In-Office Order, Internal Use Only DO Not Attach Compendium DO Not Attach Compendium, Do Not Delete/merge, [id number] 4 11:54:13 Referral None recorded. Procedures None recorded. Surgeries None recorded. Imaging US, pelvis, transabdom inal + transvagin al - 10 days of RLQ pain, negative urine GCG, serum test pending. In 2009 she had a right ectopic treated with methotrexa te and then later she had an HSG to improve patency. No spotting 2024 025 [facility], [address], [address], [place], [address], 5 09:15:16 MAMMO, screening, digital, bilateral - Breast Aspiration and/or Biopsy if needed 2024 025 [facility], [address], [address], [place], [address], 5 09:19:13 Medication Orders Incassia 0.35 mg tablet 2024 025 [facility]1972, [address] [place], [address], 5 11:20:17 Gynazole-1 2 % vaginal cream 2023 025 [facility]1972, [address] [place], [address], 11:09:01 triamcinol one acetonide 0.1 % topical ointment 2023 025 [facility]1972, [address] [place], [address], 11:09:29 terconazol e 0.4 % vaginal cream 2023 025 [facility], [address] [place] [address], [address], 11:09:19 Patient TargetsNo targets recorded. Patient Instructions Encounter Date Encounter Id Patient Instructions Last Modified By Organization Details Last Modified Time 10/08/2023 [id number] vaginal yeast infection: care instructions Not available [...] skin off. Not available 10/08/2023 12:47:17 10/23/2023 [id number] vaginal yeast infection: care instructions Not available [...] 3 weeks. Not available 10/23/2023 09:40:58 01/19/2024 [id number] abnormal Pap sandra t: care instructions Not available 01/19/2024 11:36:16 She is here for repeat pap after pap with ASCUS without HR HPV. Pap taken, if negative resume annual pap. If ASCUS then colpo. She understands. Not available 01/19/2024 11:37:00 08/01/2024 [id number] learning about healthy weight Not available 08/01/2024 11:20:15 She is here [...] new mass in the breast. Not available 08/01/2024 11:34:11 01/09/2025 [id number] possible appendicitis: care instructions Not available 01/09/2025 [...] and she is going to go to [facility] now just to be cautious. This is reasonable as we could not get the sono scheduled for 2 days. She will go to [facility] now. Not available 01/09/2025 14:49:13 Reason for Referral None Reported. Results Created Date Observation Date Name Description Value Unit Range Abnormal Flag Note LastModifiedBy Organization Detail LastModifiedTime 09/16/1909/28/2023 IGP, RFX APTIM A HPV ASCU diagnosis: Iliana pierce abnormal EPITH ELIAL CELL ABNOR MALIT Y. ATYPI KEMAL SQUAM OUS CELLS OF UNDET ERMIN ED SIGNI KATHLEEN CE (ASC- US). Not Available [address], [address], 10/07/2023 08:09:26 09/16/19 24 09/28/2023 IGP, RFX APTIM A HPV ASCU specimen adequacy: Iliana pierce Satis facto ry for evalu ation . Endoc ervic al and/o r squam ous metap lasti c cells (endo cervi kemal compo nent) are prese nt. Not Available [address], [address], 10/07/2023 08:09:26 09/16/19 24 09/28/2023 IGP, RFX APTIM A HPV ASCU clinician provided ICD10: Iliana pierce R87.6 10 Not Available [address], [address], 10/07/2023 08:09:26 09/16/19 24 09/28/2023 IGP, RFX APTIM A HPV ASCU performed by: Iliana najera, Cytot gabriela pierce (ASCP ) Not Available [address], [address], 10/07/2023 08:09:26 09/16/19 24 09/28/2023 IGP, RFX APTIM A HPV ASCU electronical ly signed by: Iliana Hernandez MD, Patho ganga t Not Available [address], [address], 10/07/2023 08:09:26 09/16/19 24 09/28/2023 IGP, RFX APTIM A HPV ASCU . . Not Available [address], [address], 10/07/2023 08:09:26 09/16/19 24 09/28/2023 IGP, RFX APTIM A HPV ASCU pathologist provided ICD10: Iliana pierce R87.6 10 Not Available [address], [address], 10/07/2023 08:09:26 09/16/19 24 09/28/2023 IGP, RFX [...] repor ts do occur . Not Available [address], [address], 10/07/2023 08:09:26 09/16/19 24 09/28/2023 IGP, RFX APTIM A HPV ASCU test methodology: Iliana pierce This liqui d based ThinP rep(R ) pap test was scree topher with the use of an image guide d syste m. Not Available [address], [address], 10/07/2023 08:09:26 09/16/19 24 09/28/2023 IGP, RFX APTIM A HPV ASCU . Commen t See below for HPV testi ng resul ts. Not Available [address], [address], 10/07/2023 08:09:26 09/16/19 24 10/07/2023 IGP, RFX APTIM A HPV ASCU HPV aptima Negati ve negati ve This nucle ic acid ampli ficat ion test detec ts fourt een high- risk HPV types (16,1 8,31, 33,35 ,39,4 5,51, 52,56 ,58,5 9,66, 68) witho ut diffe renti ation . Not Available [address], [address], 10/07/2023 08:09:26 09/16/19 24 09/16/2023 wet mount [...] Attach Compendium, Do Not Delete/merge, 09/16/2023 11:05:49 09/16/1909/16/2023 wet mount , vagin al Hyphae positi [...] DO Not Attach Compendium, Do Not Delete/merge, [id number] 10/08/2023 11:52:50 10/08/19 24 10/08/2023 wet mount , vagin al Trichomonas negati ve Not Available In-Office Order Internal Use Only DO Not Attach Compendium DO Not Attach Compendium, Do Not Delete/merge, [facility] 10/08/2023 11:52:50 10/08/19 24 10/08/2023 wet mount , vagin al Hyphae positi ve Not Available In-Office Order Internal Use Only DO Not Attach Compendium DO Not Attach Compendium, Do Not Delete/merge, [facility] 10/08/2023 11:52:50 10/08/19 24 10/08/2023 wet mount , vagin al atrophic epithelium negati ve Not Available In-Office Order Internal Use Only DO Not Attach Compendium DO Not Attach Compendium, Do Not Delete/merge, [facility] 10/08/2023 11:52:50 10/08/19 24 10/08/2023 pregn perez test, urine HCG negati ve Not Available In-Office Order Internal Use Only DO Not Attach Compendium DO Not Attach Compendium, Do Not Delete/merge, [facility] 10/08/2023 11:32:47 10/23/19 24 10/23/2023 wet mount , vagin al Clue Cells negati ve Not Available In-Office Order Internal Use Only DO Not Attach Compendium DO Not Attach Compendium, Do Not Delete/merge, [facility] 10/23/2023 09:29:26 10/23/19 24 10/23/2023 wet mount , vagin al Trichomonas negati ve Not Available In-Office Order Internal Use Only DO Not Attach Compendium DO Not Attach Compendium, Do Not Delete/merge, [facility] 10/23/2023 09:29:26 10/23/19 24 10/23/2023 wet mount , vagin al Hyphae positi ve Not Available In-Office Order Internal Use Only DO Not Attach Compendium DO Not Attach Compendium, Do Not Delete/merge, [facility] 10/23/2023 09:29:26 10/23/19 24 10/23/2023 wet mount , vagin al atrophic epithelium negati ve Not Available In-Office Order Internal Use Only DO Not Attach Compendium DO Not Attach Compendium, Do Not Delete/merge, [id number] 10/23/2023 09:29:26 01/19/20 24 01/25/2024 IGP, RFX APTIM A HPV ASCU diagnosis: Iliana pierce NEGAT KATRINA FOR INTRA EPITH ELIAL LESIO N OR KAREEM ANNE . THIS SPECI MEN WAS RESCR EENED PART OF OUR QUALI TY CONTR OL PROGR AM. Not Available [facility] ([facility]) [address] [facility], [place], [address], 01/25/2024 12:05:43 01/19/20 24 01/25/2024 IGP, RFX APTIM A HPV ASCU specimen adequacy: Iliana pierce Satis facto christo for evalu ation . Endoc ervic al and/o r squam ous metap lasti c cells (endo cervi kemal compo nent) are prese nt. Not Available [facility] ([facility]) [address] [facility], [place], [address], 01/25/2024 12:05:43 01/19/20 24 01/25/2024 IGP, RFX APTIM A HPV ASCU clinician provided ICD10: Iliana pierce R87.6 10 Not Available [facility] ([facility]) [address] [facility], [place], [address], 01/25/2024 12:05:43 01/19/20 24 01/25/2024 IGP, RFX APTIM A HPV ASCU performed by: Iliana Goodman, Cytot echno logis t (ASCP ) Not Available [facility] ([facility]) [address] [facility], [place], [address], 01/25/2024 12:05:43 01/19/20 24 01/25/2024 IGP, RFX APTIM A HPV ASCU QC reviewed by: Commen t Jeffe ry A Prior , Cytot echno logis t (ASCP ) Not Available [facility] ([facility]) [address] [facility], [place], [address], 01/25/2024 12:05:43 01/19/20 24 01/25/2024 IGP, RFX APTIM A HPV ASCU . . Not Available [facility] ([facility]) [address] [facility], [place], [address], 01/25/2024 12:05:43 01/19/20 24 01/25/2024 IGP, RFX [...] occur . Not Available [facility] ([facility]) [address] [facility], [place], [address], 01/25/2024 12:05:43 01/19/20 24 01/25/2024 IGP, RFX APTIM A HPV ASCU . Commen t The HPV DNA refle x crite chari were not met with this speci men resul t there fore, no HPV testi ng was perfo rmed. Not Available [facility] ([facility]) [address] [place], [address], 01/25/2024 12:05:43 08/02/19 25 08/04/2024 IGP, RFX APTIM A HPV ASCU diagnosis: Commen t NEGAT KATRINA FOR INTRA EPITH ELIAL LESIO N OR MALIG OMID . THIS SPECI MEN WAS RESCR EENED PART OF OUR QUALI TY CONTR OL PROGR AM. Not Available [facility] ([facility]) [address] [facility], [place], [address], 08/04/2024 14:16:10 08/02/19 25 08/04/2024 IGP, RFX APTIM A HPV ASCU specimen adequacy: Iliana pierce Satis facto ry for evalu ation . Endoc ervic al and/o r squam ous metap lasti c cells (endo cervi kemal compo nent) are prese nt. Not Available [facility] ([facility]) [address] [place], [address], 08/04/2024 14:16:10 08/02/19 25 08/04/2024 IGP, RFX APTIM A HPV ASCU clinician provided ICD10: Iliana pierce Z01.4 19 Not Available [facility] ([facility]) [address] [place], [address], 08/04/2024 14:16:10 08/02/19 25 08/04/2024 IGP, RFX APTIM A HPV ASCU performed by: Iliana Goodman, Cytot echno logis t (ASCP ) Not Available [facility] ([facility]) [address] [place], [address], 08/04/2024 14:16:10 08/02/19 25 08/04/2024 IGP, RFX APTIM A HPV ASCU QC reviewed by: Iliana Munoz , Cytot echno logis t (ASCP ) Not Available [facility] ([facility]) [address] [place], [address], 08/04/2024 14:16:10 08/02/19 25 08/04/2024 IGP, RFX APTIM A HPV ASCU . . Not Available [facility] ([facility]) [address] [place], [address], 08/04/2024 14:16:10 08/02/19 25 08/04/2024 IGP, RFX [...] occur . Not Available [facility] ([facility]) [address] [facility], [place], [address], 08/04/2024 14:16:10 08/02/19 25 08/04/2024 IGP, RFX APTIM A HPV ASCU test methodology: Commen t This liqui d based ThinP rep(R ) pap test was scree topher with the use of an image guide zelda enamorado. Not Available [facility] ([facility]) [address] [facility], [place], [address], 08/04/2024 14:16:10 08/02/19 25 08/04/2024 IGP, RFX APTIM A HPV ASCU . Commen t The HPV DNA refle x crite chari were not met with this speci men resul t there fore, no HPV testi ng was perfo rmed. Not Available [facility] ([facility]) [address] [facility], [place], [address], 08/04/2024 14:16:10 08/02/19 25 08/01/2024 hemog lobin , gastr ointe alex l, stool Occult Blood negati ve Not Available In-Office Order Internal Use Only DO Not Attach Compendium DO Not Attach Compendium, Do Not Delete/merge, [id number] 08/01/2024 11:12:07 01/10/20 25 01/09/2025 pregn perez test, urine HCG negati ve Not Available In-Office Order Internal Use Only DO Not Attach Compendium DO Not Attach Compendium, Do Not Delete/merge, [id number] 01/09/2025 14:06:56 01/11/2001/11/2025 HCG QL W/REF CHRISTIAN TO HCG QN HCG,beta subunit,qual Negati ve mIU/m L negati ve <6 Not Available [facility] ([facility]) [address] [facility], [place], [address], 01/11/2025 08:07:42 08/06/1908/05/2024 MAMMO , scree catarina, digit al, bilat eral No observ ation record ed. [facility] [address], [place], [address], 08/05/2024 09:38:50 01/11/2001/09/2025 US, pelvi s, trans abdom inal + trans vagin al No observ ation record ed. BARCODE [facility] [address], [place], [address], 01/10/2025 09:15:16 Result Notes None recorded. Problems Name Problem SNOMED Code Status Onset Date Resolution Date Notes Provider Name and Address Organization Details Recorded Time Vulvitis 02155495 Active Marisa Ramirez MD [address], [place], [address] , [place] [facility], 4 15:12:56 Anxiety state 326114481 Active Not Available [facility] 3 03:01:04 Cyst of ovary 74801064 Active Not Available [facility] 3 03:01:04 Tobacco dependenc e syndrome 59009075 Active CAN NOT TAKE THE COMBINATIO N CONTROL PILL IF SHE SMOKES Marisa Ramirez MD [address], [place], [address] , [place] [facility], 6 11:36:22 Specializ ed medical examinati on Active Marisa Ramirez MD [address], [place], [address] , [place] [facility], 5 13:20:56 Past history of ectopic 581651108 Active 2009 She has a past history in 2009 of left sided ectopic treated with methotrexa te in 2009. She had a post procedure HSG which showed bilaterall y patent tubes after treatment. Marisa Ramirez MD [address], [place], [address] , [facility], 0 14:12:33 Carpal tunnel syndrome 37418908 Active 2021 Evy gibson [place] - [facility], 2 14:46:35 Problem Notes None recorded. Procedures Surgical History Date Name Laterality Status Provider Name and Address Organization Details Recorded Time 07/30/19 24 Most Recent Mammogram completed Yadi Shelton in [facility], 07/25/2024 08:10:55 11/21/19 23 Endometrial Biopsy completed Marisa Ramirez MD [address], [place], [address], [facility] - [facility], 11/20/2022 14:26:11 05/04/19 10 removal of product of conception of ectopic completed Marisa Ramirez MD [address], [place], [address], [facility] - [facility], 01/09/2025 14:17:52 05/04/18 96 Other completed Yadi Shelton in [facility], 03/08/2012 13:37:41 05/04/18 84 Tonsillectomy completed Aarti Shelton in [facility], 03/20/2014 10:57:09 Imaging Results None recorded. [...] cm 97.2 [degF] 67 /min 18.1 kg/m2 74899.9 2 g 147/83 mm[Hg] Yadi Shelton in [facility], 5 11:06:57 Date Recorded Body height Body mass index (BMI) Body weight Heart rate Systolic And Diastolic Provider Name and Address Organization Details Last Updated DateTime 10/08/2023 162.56 cm 18.2 kg/m2 22264.79 g 66 /min 133/78 mm[Hg] genia Shelton in [facility], 10/08/2023 11:31:43 Date Recorded Body height Body mass index (BMI) Body weight Body temperature Heart rate Systolic And Diastolic Provider Name and Address Organization Details Last Updated DateTime 4 162.56 cm 18.2 kg/m2 18850.7 9 g 96.8 [degF] 71 /min 131/76 mm[Hg] genia Shleton in [facility], 4 09:19:36 Date Recorded Body height Heart rate Body mass index (BMI) Body weight Systolic And Diastolic Provider Name and Address Organization Details Last Updated DateTime 01/09/2025 162.56 cm 76 /min 17.4 kg/m2 22318.55 g 143/95 mm[Hg] Yadi Shelton in [facility], 01/09/2025 14:03:16 Date Recorded Body height Body mass index (BMI) Body weight Heart rate Body temperature Systolic And Diastolic Provider Name and Address Organization Details Last Updated DateTime 162.56 cm 18 kg/m2 10663.2 g 67 /min 97.2 [degF] 131/79 mm[Hg] Yadi Shelton in [facility], 4 11:04:29 Social History Question Answer Notes LastModified by Organizat ion Details LastModified Time Tobacco Smoking Status Current Every Day Smoker Not Available [facility] 03/06/2020 03:19:40 What Is Your Level Of Caffeine Consumption? Occasional [id number] Information not available 03/06/2020 In The 14 [...] Type Of Diet Are You Following? REGULAR [id number] Information not available 03/06/2020 Which Illicit Or Recreational Drugs Have You Used? No [id number] Information not available 03/06/2020 Do You Reside In Or Have You Traveled To An Area Where Ebola Virus Transmission Is Active? No [id number] Information not available 03/06/2020 Education 12 Information no t available 03/08/2012 What Is The Highest Grade Or Level Of School You Have Completed Or The Highest Degree You Have Received? [id number] Information not available 06/12/2022 How Many Days [...] available 06/12/2021 Are You Sexually Active? Yes [id number] Information not available 03/06/2020 At What Age Did You Start Smoking Tobacco? 12 Information not available 06/12/2021 How Much Tobacco Do You Smoke? 0.25 PPD [id number] Information not available 03/06/2020 General Stress Level [...] is your level of alcohol consumption? None [id number] Information not available 03/06/2020 Do you or have you ever used smokeless tobacco? Never used smokeless tobacco [id number] Information not available 03/06/2020 Are you currently employed? No Information not available 06/12/2021 What is your occupation? not at this time. Information not available 04/23/2020 Do you or have you ever used e-cigarettes or vape? Never used electronic cigarettes [id number] Information not available 03/06/2020 What is your exercise level? Occasional [id number] Information not available 03/06/2020 Mental Status Question Answer Note LastModified by Organization D etails LastModified Time Do you feel stressed (tense, restless, nervous, or anxious, or unable to sleep at night)? [id number] Information not available 06/12/2021 Family History Relationship [...] for MyRisk panel N Autoimmune Condition Y Depression N Lung Disease N Defects or Inherited Disease N History of Ovarian Cancer N BRCA testing in past N Anxiety Disorder Y Arthritis N Infertility N History of Cancer N Endometriosis N Kidney or Bladder Problems N Thyroid Problems N GI Problems N Anemia N History of Breast Cancer N ISSAC exposure N Osteopenia N Psychiatric Illness N Diabetes N Headaches or Migraines Y Asthma N Hepatitis N Heart Disease N Hypertension [...] virus, trivalent, PF 7 completed Not Available [facility] 05/21/2019 02:22:34 Influenza, split virus, trivalent, PF 2 completed Not Available [facility] 05/21/2019 02:22:34 Influenza, split virus, quadrivalent, preservative 0 completed Yadi Meczywor null, [place] [facility], 04/23/2020 09:46:20 Influenza, split virus, trivalent, PF 3 completed Not Available [facility] 05/21/2019 02:22:34 Influenza, MDCK, quadrivalent, [...] [facility], 09/16/2023 10:42:32 Td (adult), 2 Lf tetanus toxoid, preservative free, adsorbed 1 completed Yadi Meczywor null, [place] - [facility], 09/16/2023 10:42:33 Influenza, split virus, trivalent, PF 4 completed Not Available [facility] [place] [facility] 05/21/2019 02:22:34 Past Encounters Encounter ID Performer Location Encounter Start Date Encounter Closed Date Diagnosis/Indication Diagnosis SNOMED-CT Code Diagnosis ICD10 Code Diagnosis IMO Codes Diagnosis Note [id number] MD MARISA Boothe MD [address] [place] [address], [address] [place] [phone] 03/08/2012 13:20:35 03/08/2012 16:35:32 [id number] MD MARISA Boothe MD [address] [place] [address], [address] [phone] 03/15/2013 10:20:11 03/15/2013 15:47:44 Specialized medical examination 39582044 Influenza vaccine needed 3821649844 106 Tobacco de pendence syndrome 14587141 [id number] MD MARISA Boothe MD [address] [place] [address], [address] [place] [phone] 03/20/2014 10:43:43 03/20/2014 11:32:36 Specialized medical examination 59943726 [id number] MD MARISA Boothe MD [address] [place] [address], [address] [place] [phone] 03/21/2014 13:32:11 03/21/2014 14:57:53 Influenza vaccine needed 8990096244 106 [id number] MD MARISA Boothe MD [address] [place] [address], [address] [place] [phone] 04/04/2014 13:42:09 04/04/2014 15:44:13 Vulvitis 24749139 [id number] MD MARISA Boothe MD [address] [place] [address], [address] [place] [phone] 03/23/2015 10:40:01 03/23/2015 13:17:54 Specialized medical examination 81669337 Z04.8 Z01.419 Venereal d isease screening 051591601 Z11.3 [id number] MD MARISA Boothe MD [address] [place] [address], [address] [place] [address] 03/31/2016 10:56:28 03/31/2016 13:08:23 Specialized medical examination 51878181 Z01.419 Venereal d isease screening 489074532 Z11.3 Tobacco de pendence syndrome 51382009 F17.290 [id number] MD MARISA Boothe MD [address] [place] [address], [place] [address] 04/06/2017 09:55:01 04/06/2017 14:25:27 Specialized medical examination 87487830 Z01.419 Venereal d isease screening 775674607 Z11.3 Influenza vaccine needed 6773208908 106 Z23 Enlarged uterus 96150951 4 N85.2 [id number] MD MARISA Boothe MD [address] [place] [address], [place] [address] 05/25/2017 10:39:35 05/25/2017 13:07:35 Cyst of ovary 36618395 N83.01 [id number] MD MARISA Boothe MD [address] [place] [address],[facility] [place] [address] 04/19/2018 10:38:21 04/19/2018 12:13:00 Specialized medical examination 01072161 Z01.419 Screening for malignant neoplasm of rectum 729050177 Z12.12 Screening mammography 24 998693 Z12.31 [id number] MD MARISA Boothe MD [address] [place] [address], [place] [address] 04/21/2019 13:19:45 04/21/2019 15:34:49 Specialized medical examination 04804769 Z01.419 Screening for malignant neoplasm of rectum 346592185 Z12.12 Screening mammography 24 391125 Z12.31 Tobacco de pendence syndrome 52247882 F17.290 [id number] MD MARISA Boothe MD [address] [place] [address], [place] [address] 05/09/2019 13:37:08 05/09/2019 14:57:05 Irregular intermenstrual bleeding 13105673 N92.1 Acute lowe r urinary tract infection 916908032 R30.0 [id number] MD MARISA Boothe MD [address] [place] [address] [place] [address] 04/23/2020 09:40:21 04/23/2020 10:43:05 Specialized medical examination 17543879 Z01.419 Screening for malignant neoplasm of rectum 591563475 Z12.12 Screening mammography 24 767718 Z12.31 Cyst of right ovary 1223 479326 7871347 N83.201 [id number] MD MARISA Boothe MD [address] [place] [address], [place] [address] 06/21/2020 09:40:26 06/21/2020 10:34:18 Cyst of ovary 08997634 N83.01 [id number] MD MARISA Boothe MD [address] [place], [place] [address] [address] 06/12/2021 11:03:39 06/14/2021 13:00:39 Specialized medical examination 07460115 Z01.419 Screening for malignant neoplasm of rectum 789269624 Z12.12 Screening mammography 24 761890 Z12.31 [id number] MD MARISA Boothe MD [address] [place] [address] [place] [address] 10/10/2021 14:31:32 10/11/2021 11:34:40 Fatigue 44132571 R53.83 Abnormal u terine bleeding 0283604371 9100 N93.8 [id number] MD MARISA Boothe MD [address] [place] [address], [place] [address] 06/12/2022 10:48:40 06/12/2022 14:30:34 Specialized medical examination 72445011 Z01.419 Screening for malignant neoplasm of rectum 391421763 Z12.12 Screening mammography 24 646284 Z12.31 Cyst of right ovary 1223 128833 4242467 N83.201 [id number] MD MARISA Boothe MD [address] [place] [address] [place] [address] 09/23/2022 14:14:50 09/23/2022 15:52:10 Abnormal uterine bleeding 9700428910 9100 N93.8 Cyst of right ovary 1223 917355 1967850 N83.201 [id number] MD MARISA Boothe MD [address] [place] [address],[place] [address] 11/20/2022 13:51:41 11/20/2022 14:48:19 Oligoovulatory dysfunctional uterine bleeding 717135327 N93.8 [id number] MD MARISA Boothe MD [address] [place] [address],[place] [address] 06/18/2023 10:54:23 06/18/2023 13:39:37 Specialized medical examination 71854855 Z01.419 Screening for malignant neoplasm of rectum 442275054 Z12.12 Screening mammography 24 797370 Z12.31 [id number] MD MARISA Boothe MD [address] [place] [address], [place] [address] 09/16/2023 10:36:51 09/16/2023 11:58:58 Atypical squamous cells of undetermined significance on cervical Papanicolaou smear 437628211 R87.610 Candidal vulvovaginitis 49476754 B37.31 Vulvitis 23511178 N76.2 B96.89 [id number] MD MARISA Boothe MD [address] [place] [address], [place] [address] 10/08/2023 11:27:55 10/08/2023 14:12:21 Amenorrhea 18100742 N91.1 Candidal vulvovaginitis 23909166 B37.31 Vulvitis 93531160 N76.2 B96.89 [id number] MD MARISA Boothe MD [address] [place] [address], [place] [address] 10/23/2023 09:15:48 10/23/2023 12:05:06 Candidal vulvovaginitis 96043208 B37.31 [id number] MD MARISA Boothe MD [address] [place] [address],[place] [address] 01/19/2024 11:00:35 01/19/2024 13:50:02 Atypical squamous cells of undetermined significance on cervical Papanicolaou smear 453515539 R87.610 [id number] MD MARISA Boothe MD [address] [place] [address], [place] [address] 08/01/2024 11:01:33 08/01/2024 15:46:03 Specialized medical examination 65753640 Z01.419 Screening for malignant neoplasm of rectum 863012944 Z12.12 Screening mammography 24 092155 Z12.31 [id number] MD MARISA Boothe MD [address] [place] [address], [place] [address] 01/09/2025 14:00:07 01/09/2025 15:25:24 Right lower quadrant pain 728952221 R10.31 423312 Past pregn perez history of ectopic 550241347 Z87.59 Health Concerns Section Related Observation LastModified by Organization Detai ls LastModified Time None Recorded Concern Status LastModified by Organization Details LastModified Time None Recorded Advance Directives Directive None Recorded Payers Insurance Date Sequence Insurance Name Policy Number Policy Kwong Covered Member ID Kwong Member ID Guarantor Name 01/09/2025 1 [facility] [employer] (PPO) [id number] 1 Oswaldo Singh [id number] IVAN Singh Notes Date Note Type Note Provider Name and Address Organization Details Recorded Time 10/08/2023 text/html She is here for a [...] as both yeast and bv on wet rahda. She is symptomatic for yeast, rx diflucan. She is not symptomatic for bv and is advised she does not need to treat it but she has some brown discharge and would like to treat it to see if the brown discharge resolves with treatment. Rx cleocin 7 vaginal cream. Marisa Ramirez MD [address] [facility],[address], [place], [address], [place] [facility], [...] discharge, now resolved. Marisa Ramirez MD [address], [place], [address], [place] - [facility], 10/23/2023 09:41:20 01/19/2024 text/html She is here for repeat pap after pap with ASCUS without HR HPV. Marisa Ramirez MD [address], [place], [address], [place] [facility], 01/19/2024 11:42:58 08/01/2024 text/html She is here [...] always same partner. Marisa Ramirez MD [address], [place], [address], [place] [facility], 08/01/2024 11:34:34 01/09/2025 text/html She is here for a [...] said it was on the left. Marisa Ramirez MD [address], [place], [address], [place] [facility], 01/09/2025 14:49:39 OBGyn Episode No OBEpisode recorded.
--- OUTSIDE RECORDS SUMMARY | 2025-03-28 17:26 | XMS_ITS | Continuity of Care Document ---
Author Organization [place] 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 Name Role Phone BRANDI PINEDA Primary Care Provider Assessment Encounter Date Assessment Date Assessment LastModified by Organization Details LastModified Time 02/06/2025 02/06/2025 Normal post op: increase activity [...] and/u L 3.8-10 .8 normal Not Available [facility] [address], [place], [address], 01/25/2025 05:14:51 01/25/2001/25/2025 CBC (INCL UDES DIFF/ PLT) red blood cell count 4.26 cnocepción on/uL 3.80-5 .10 normal Not Available [facility] [address], [place], [address], 01/25/2025 05:14:51 01/25/2001/25/2025 CBC (INCL UDES DIFF/ PLT) hemoglobin 13.2 g/dL 11.7-1 5.5 normal Not Available [facility] [address], [place], [address], 01/25/2025 05:14:51 01/25/2001/25/2025 CBC (INCL UDES DIFF/ PLT) hematocrit 41.9 % 35.0-4 5.0 normal Not Available [facility] [address], [place], [address], 01/25/2025 05:14:51 01/25/2001/25/2025 CBC (INCL UDES DIFF/ PLT) MCV 98.4 fL 80.0-1 00.0 normal Not Available [facility] [address], [place], [address], 01/25/2025 05:14:51 01/25/2001/25/2025 CBC (INCL UDES DIFF/ PLT) MCH 31.0 pg 27.0-3 3.0 normal Not Available [facility] [address], [place], [address], 01/25/2025 05:14:51 01/25/2001/25/2025 CBC (INCL UDES DIFF/ PLT) MCHC 31.5 g/dL 32.0-3 6.0 low For adult s, a sligh t decre ase in the calcu lated MCHC value (in the range of 30 to 32 g/dL) is most likel y not clini ger signi ficissac t; dionisio er, it shoul d be inter prete d with cauti on in [facility] n with other red cell yannick eters and the patie nt's clini kemal condi tion. Not Available [facility] [address], [place], [address], 01/25/2025 05:14:51 01/25/2001/25/2025 CBC (INCL UDES DIFF/ PLT) RDW 12.7 % 11.0-1 5.0 normal Not Available [facility] [address], [place], [address], 01/25/2025 05:14:51 01/25/2001/25/2025 CBC (INCL UDES DIFF/ PLT) platelet count 285 thous and/u L 140-40 0 normal Not Available [facility] [address], [place], [address], 01/25/2025 05:14:51 01/25/2001/25/2025 CBC (INCL UDES DIFF/ PLT) MPV 10.6 fL 7.5-12 .5 normal Not Available [facility] [address], [place], [address], 01/25/2025 05:14:51 01/25/2001/25/2025 CBC (INCL UDES DIFF/ PLT) absolute neutrophils 3896 cells /uL 1500-7 800 normal Not Available [facility] [address], [place], [address], 01/25/2025 05:14:51 01/25/2001/25/2025 CBC (INCL UDES DIFF/ PLT) absolute lymphocytes 3434 cells /uL 850-39 00 normal Not Available [facility] [address], [place], [address], 01/25/2025 05:14:51 01/25/20 25 01/25/2025 CBC (INCL UDES DIFF/ PLT) absolute monocytes 551 cells /uL 200-95 0 normal Not Available [facility] [address], [place], [address], 01/25/2025 05:14:51 01/25/20 25 01/25/2025 CBC (INCL UDES DIFF/ PLT) absolute eosinophils 170 cells /uL 15-500 normal Not Available [facility] [address], [place], [address], 01/25/2025 05:14:51 01/25/20 25 01/25/2025 CBC (INCL UDES DIFF/ PLT) absolute basophils 49 cells /uL 0-200 normal Not Available [facility] [address], [place], [address], 01/25/2025 05:14:51 01/25/2001/25/2025 CBC (INCL UDES DIFF/ PLT) neutrophils 48.1 % normal Not Available [facility] [address], [place], [address], 01/25/2025 05:14:51 01/25/2001/25/2025 CBC (INCL UDES DIFF/ PLT) lymphocytes 42.4 % normal Not Available [facility] [address], [place], [address], 01/25/2025 05:14:51 01/25/20 25 01/25/2025 CBC (INCL UDES DIFF/ PLT) monocytes 6.8 % normal Not Available [facility] [address], [place], [address], 01/25/2025 05:14:51 01/25/20 25 01/25/2025 CBC (INCL UDES DIFF/ PLT) eosinophils 2.1 % normal Not Available [facility] [address], [place], [address], 01/25/2025 05:14:51 01/25/20 25 01/25/2025 CBC (INCL UDES DIFF/ PLT) basophils 0.6 % normal Not Available [facility] [address], [address], 01/25/2025 05:14:51 01/25/20 25 01/25/2025 HCG, TOTAL , QN HCG, total, qn [...] appro hernan by the FDA or the [facility] actur er of the assay . Not Available [facility] [address], [place], [address], 01/25/2025 05:14:51 Result Notes None recorded. Problems Name Problem SNOMED Code Status Onset Date Resolution Date Notes Provider Name and Address Organization Details Recorded Time Arthritis 4744164 Active 025 [facility] 5 13:53:44 Mixed anxiety and depressive disorder 851719385 Active 025 [facility] 5 13:53:59 History of migraine 253701010 Active 025 [facility] 13:54:15 Problem Notes None recorded. Procedures Surgical History Date Name Laterality Status Provider Name and Address Organization Details Recorded Time 01/27/20 Hysterectomy total with removal cervix and bso completed BAR SINGH MD [address] [place] [address], [address] [place], [address], [facility] 01/31/2025 09:45:56 Imaging Results None [...] Updated DateTime 02/06/2025 162.56 cm 16.6 kg/m2 76170.46 g 138/82 mm[Hg] Zack Benavides [place] [facility] 02/06/2025 13:38:46 Social History Question Answer Notes LastModified by Organization D etails LastModified Time Has Tobacco Cessation Counseling Been Provided? Yes [facility] Information not available 01/17/2025 Sex: Unknown Functional Status Question Answer Note LastModified by Organization D etails LastModified Time What is your level of alcohol consumption? None [email or web address] Information not available 01/17/2025 Mental Status None recorded. Family History Relationship Description Onset Age of this Age Resolved Age Notes LastModified by Organization Details LastModified Time Father Malignant neoplasm of prostate chu Not available 2024 13:55:00 Father Diabetes mellitus [facility] Not available 2024 13:55:19 Mother Diabetes mellitus [facility] Not available 2024 13:55:19 Medical History No medical history recorded. Gynecological HistoryNo gynecological history recorded. Obstetrics History GPAL:G 0 P 0 0 0 0 Past Encounters Encounter ID Performer Location Encounter Start Date Encounter Closed Date Diagnosis/Indication Diagnosis SNOMED-CT Code Diagnosis ICD10 Code Diagnosis IMO Codes Diagnosis Note [id number] BAR SINGH MD [facility] [address] [place] [address] 01/17/2025 13:10:13 01/18/2025 09:21:34 Pre-surgery evaluation 468188073 Z01.818 Procedure not done 51570 7000 Z53.20 [id number] BAR SINGH MD [facility] [address] [place] [address] 02/06/2025 13:35:27 02/10/2025 14:55:08 Postoperative visit 129033489 Z09 Health Concerns Section Related Observation LastModified by Organization Detai ls LastModified Time None Recorded Concern Status LastModified by Organization Details LastModified Time None Recorded Payers Encounter Date Sequence Insurance Name Policy Number Policy Kwong Covered Member ID Kwong Member ID Guarantor Name 02/06/2025 1 [employer] [id number] Oswaldo Singh [id number] Jayla Singh Notes Date Note Type Note Provider Name and Address Organization Details Recorded Time 02/06/2025 text/html 01/26/2025 : [facility]: benign myomasDoing well, no f/c/s/n/v/d/c, no bleeding, bowels and bladder working wellocc pain medsstill with difficulty with BM and flatus as prior to OR: will refer to GI has appt booked BAR SINGH MD [address] [place] [address], [address] Floor, [place], [address], [place] [facility] 02/06/2025 14:55:32 OBGyn Episode No OBEpisode recorded.
== END 2025-03-28 13:50 | disposition home or self-care (01) ==
LOC: HO.HSMS 13:32
PROVIDERS: PCP Physician Assistant; Visit Provider Psychiatry & Neurology Neurology
DX: G24.3 Spasmodic torticollis (principal); M54.2 Cervicalgia
CPT/HCPCS: 64616; 99499

== ENCOUNTER → 2025-03-28 13:32 | Outpatient (BNVA) | payer BC, SELFPAY | PROVIDERS: PCP Physician Assistant; Visit Provider Psychiatry & Neurology Neurology | DX: G24.3 Spasmodic torticollis (principal); M54.2 Cervicalgia | CPT/HCPCS: 64616; J0585 ==